=== PATIENT | male | born 1965 | race Caucasian/White ===

== ENCOUNTER 2020-08-03 07:59 | Outpatient (REF) | payer MEDICARE, MEDICAID, SELFPAY ==
[2020-08-03 11:56] LABS: Alanine Aminotransferase 20 U/L (0-40); Albumin Level 4.1 g/dL (3.5-5.0); Alkaline Phosphatase 71 U/L (39-117); Anion Gap 17 (12-20); Aspartate Amino Transferase 18 U/L (5-37); Bilirubin Total 0.5 mg/dL (0.0-1.0); Blood Urea Nitrogen 14 mg/dL (9-16); Calcium 9.4 mg/dL (8.4-10.2); Carbon Dioxide 29 mmol/L (22-29); Chloride 99 mmol/L (96-108); Cholesterol 181 mg/dL; Estimated Glomerular Filt Rate > 60; Glucose Fasting 157 mg/dL (60-99); HDL Cholesterol 47 mg/dL; LDL Cholesterol Calculated 116 mg/dl; Potassium 4.9 mmol/l (3.3-5.1); Sodium 140 mmol/L (135-145); Total Protein 7.4 g/dL (6.5-8.0); Triglycerides 92 mg/dL
[2020-08-03 12:18] LABS: TSH reflex Free T4 1.08 mIU/mL (0.32-4.0)
== END 2020-08-03 08:00 | disposition home or self-care (01) ==
LOC: HO.WFDLDS 07:59
PROVIDERS: Visit Provider Family Medicine
DX: Z00.00 Encounter for general adult medical examination without abnormal findings (principal); E11.9 Type 2 diabetes mellitus without complications; Z79.4 Long term (current) use of insulin
CPT/HCPCS: 80053; 80061; 84443

== ENCOUNTER → 2020-08-10 12:47 | Outpatient (BNVA) | payer MEDICARE, MEDICAID, SELFPAY | PROVIDERS: PCP Family Medicine; Visit Provider Internal Medicine Pulmonary Disease | DX: J44.9 Chronic obstructive pulmonary disease, unspecified (principal); G47.33 Obstructive sleep apnea (adult) (pediatric) | CPT/HCPCS: 99202 ==

== ENCOUNTER → 2020-08-15 08:06 | Outpatient (BNVA) | payer MEDICARE, MEDICAID, SELFPAY | PROVIDERS: PCP Family Medicine; Visit Provider Nurse Practitioner Gerontology | DX: E11.65 Type 2 diabetes mellitus with hyperglycemia (principal); Z79.4 Long term (current) use of insulin; E78.5 Hyperlipidemia, unspecified; I10 Essential (primary) hypertension; E66.09 Other obesity due to excess calories; R00.0 Tachycardia, unspecified | CPT/HCPCS: 82947; 99212 ==

== ENCOUNTER 2020-08-23 08:57 | Outpatient (REF) | payer MEDICARE, MEDICAID, SELFPAY ==
[2020-08-23 11:39] LABS: Microalbum/Creatinine Ratio Ur 6.4 ug/mg cr; Prostate Specific Antigen Scr 0.59 ng/mL (<0.05-4.0)
== END 2020-08-23 08:58 | disposition home or self-care (01) ==
LOC: HO.WFDLDS 08:57
PROVIDERS: Nurse Practitioner Gerontology; Visit Provider Family Medicine
DX: E78.5 Hyperlipidemia, unspecified (principal); I10 Essential (primary) hypertension; E11.65 Type 2 diabetes mellitus with hyperglycemia; Z79.4 Long term (current) use of insulin; Z12.5 Encounter for screening for malignant neoplasm of prostate
CPT/HCPCS: 82043; 84153

== ENCOUNTER 2020-11-14 11:01 | Outpatient (REF) | payer MEDICARE, MEDICAID, SELFPAY ==
--- NOTE | 2020-11-14 16:24 | PFT_ITS ---
Forced vital capacity, FEV1, IDL81-74 and MVV are all markedly reduced. Post bronchodilator therapy, there is only slight improvement in RHR46-23. Total lung capacity is moderately reduced. Residual volume slightly reduced. Diffusion capacity moderately reduced. CONCLUSION: 1. Moderately severe restrictive pulmonary disorder. 2. Moderate degree of obstructive airway disorder. 3. No significant improvement to bronchodilator therapy. Ayse Ann MD MSB/MODL / [id number]
== END 2020-11-14 11:02 | disposition home or self-care (01) ==
LOC: HO.RESP 11:01
PROVIDERS: PCP Family Medicine; Visit Provider Internal Medicine Pulmonary Disease
DX: J44.9 Chronic obstructive pulmonary disease, unspecified (principal)
CPT/HCPCS: 94060; 94727; 94729

== ENCOUNTER → 2020-11-15 09:59 | Outpatient (REF) | payer MEDICARE, MEDICAID, SELFPAY | LOC: HO.SL 09:59 | PROVIDERS: PCP Family Medicine; Visit Provider Internal Medicine Pulmonary Disease | DX: G47.33 Obstructive sleep apnea (adult) (pediatric) (principal) | CPT/HCPCS: 95806 ==

== ENCOUNTER → 2020-12-08 10:45 | Outpatient (BNVA) | payer OTHER, SELFPAY | PROVIDERS: PCP Family Medicine; Visit Provider Internal Medicine Pulmonary Disease | DX: J44.9 Chronic obstructive pulmonary disease, unspecified (principal); G47.33 Obstructive sleep apnea (adult) (pediatric); J98.4 Other disorders of lung; E66.9 Obesity, unspecified; M54.9 Dorsalgia, unspecified | CPT/HCPCS: 99212 ==

== ENCOUNTER → 2021-01-20 09:07 | Outpatient (BNVA) | payer OTHER, SELFPAY | PROVIDERS: PCP Family Medicine; Visit Provider Internal Medicine | DX: M54.9 Dorsalgia, unspecified (principal); E66.01 Morbid (severe) obesity due to excess calories; R06.4 Hyperventilation | CPT/HCPCS: 99202 ==

== ENCOUNTER 2021-01-23 10:25 | Outpatient (REF) | payer OTHER, SELFPAY ==
--- NOTE | ~2021-01-23 | XR_ITS ---
EXAMINATION: XR BILATERAL HIPS WITH AP PELVIS CLINICAL INFORMATION: Bilateral posttraumatic osteoarthritis of hip COMPARISON: None TECHNIQUE: AP view of the pelvis and single views of each hip were obtained. FINDINGS: There is severe loss of left hip joint with subarticular sclerosis and deformity of femoral head suggestive of severe arthritic changes. There is mild foreshortening of the femoral neck as well likely from old traumatic injury. There is minimal loss of right hip joint space but no acute fracture or dislocation seen. The SI joints are symmetric and normal. There is mild deformity of left hemipelvis from old fracture. The right posterior hemipelvis appears unremarkable. XR/XR hip BI w PEL1V IMPRESSION: Severe degenerative arthritic changes left hip joint. There is old traumatic changes left hemipelvis and left hip. Mild degenerative changes right hip joint. The right hemipelvis is unremarkable.
== END 2021-01-23 10:26 | disposition home or self-care (01) ==
LOC: HO.XRAY 10:25
PROVIDERS: PCP Family Medicine; Visit Provider Internal Medicine
DX: M16.4 Bilateral post-traumatic osteoarthritis of hip (principal)
CPT/HCPCS: 73521

== ENCOUNTER → 2021-02-07 10:21 | Outpatient (BNVA) | payer OTHER, SELFPAY | PROVIDERS: PCP Family Medicine; Visit Provider Internal Medicine Pulmonary Disease | DX: G47.33 Obstructive sleep apnea (adult) (pediatric) (principal); J44.9 Chronic obstructive pulmonary disease, unspecified; J30.9 Allergic rhinitis, unspecified | CPT/HCPCS: 99212 ==

== ENCOUNTER → 2021-02-17 08:56 | Outpatient (BNVA) | payer OTHER, SELFPAY | PROVIDERS: PCP Family Medicine; Visit Provider Internal Medicine | DX: M16.4 Bilateral post-traumatic osteoarthritis of hip (principal) | CPT/HCPCS: 99212 ==

== ENCOUNTER → 2021-03-29 11:48 | Outpatient (BNVA) | payer OTHER, SELFPAY | PROVIDERS: PCP Family Medicine; Visit Provider Internal Medicine Pulmonary Disease | DX: J44.9 Chronic obstructive pulmonary disease, unspecified (principal); G47.33 Obstructive sleep apnea (adult) (pediatric); R06.00 Dyspnea, unspecified | CPT/HCPCS: 99212 ==

== ENCOUNTER → 2021-05-05 10:20 | Outpatient (BNVA) | payer OTHER, SELFPAY | PROVIDERS: PCP Family Medicine; Visit Provider Internal Medicine Pulmonary Disease | DX: G47.33 Obstructive sleep apnea (adult) (pediatric) (principal); R06.00 Dyspnea, unspecified; J44.9 Chronic obstructive pulmonary disease, unspecified | CPT/HCPCS: 99212 ==

== ENCOUNTER 2021-06-15 10:08 | Outpatient (REF) | payer OTHER, SELFPAY ==
[2021-06-15 11:52] LABS: Estimated Average Glucose 169 mg/dL; Hemoglobin A1c % 7.5 %
[2021-06-15 11:59] LABS: Alanine Aminotransferase 21 U/L (0-40); Alkaline Phosphatase 61 U/L (39-117); Anion Gap 15 (12-20); Aspartate Amino Transferase 18 U/L (5-37); Bilirubin Total 0.5 mg/dL (0.0-1.0); Blood Urea Nitrogen 17 mg/dL (9-16); Calcium 9.9 mg/dL (8.4-10.2); Carbon Dioxide 29 mmol/L (22-29); Chloride 102 mmol/L (96-108); Estimated Glomerular Filt Rate > 60; Glucose Fasting 125 mg/dL (60-99); Sodium 141 mmol/L (135-145); Total Protein 7.1 g/dL (6.5-8.0)
[2021-06-15 14:30] LABS: Microalbum/Creatinine Ratio Ur 10.6 ug/mg cr
== END 2021-06-15 10:09 | disposition home or self-care (01) ==
LOC: HO.WFDLDS 10:08
PROVIDERS: Visit Provider Family Medicine
DX: Z00.00 Encounter for general adult medical examination without abnormal findings (principal); E11.65 Type 2 diabetes mellitus with hyperglycemia; I10 Essential (primary) hypertension; Z79.4 Long term (current) use of insulin
CPT/HCPCS: 36415; 80053; 82043; 83036

== ENCOUNTER → 2021-06-21 11:26 | Outpatient (BNVA) | payer OTHER, SELFPAY | PROVIDERS: PCP Family Medicine; Visit Provider Internal Medicine Pulmonary Disease | DX: J44.9 Chronic obstructive pulmonary disease, unspecified (principal) | CPT/HCPCS: 99212 ==

== ENCOUNTER → 2021-09-13 10:06 | Outpatient (BNVA) | payer OTHER, SELFPAY | PROVIDERS: PCP Family Medicine; Visit Provider Internal Medicine Pulmonary Disease | DX: J44.9 Chronic obstructive pulmonary disease, unspecified (principal); R06.00 Dyspnea, unspecified | CPT/HCPCS: Q3014 ==

== ENCOUNTER → 2022-01-12 11:10 | Outpatient (BNVA) | payer OTHER, SELFPAY | PROVIDERS: PCP Family Medicine; Visit Provider Internal Medicine Pulmonary Disease | DX: G47.33 Obstructive sleep apnea (adult) (pediatric) (principal); J44.9 Chronic obstructive pulmonary disease, unspecified | CPT/HCPCS: 99212 ==

== ENCOUNTER 2022-04-06 08:39 | Outpatient (REF) | payer OTHER, SELFPAY ==
[2022-04-06 11:52] LABS: MANUAL DIFF FLAG NO
[2022-04-06 12:06] LABS: Basophils Absolute Auto 0.1 X10*3/uL (0.0-0.2); Basophils Percent Auto 0.6 % (0-2); Eosinophils Absolute Auto 0.6 X10*3/uL (0.0-0.4); Eosinophils Percent Auto 5.7 % (0-4); Hematocrit 46.1 % (42.0-52.0); Hemoglobin 14.1 g/dl (14.0-18.0); Imm Gran Abs Auto 0.04 X10*3/uL (0.00-0.03); Imm Gran Pct Auto 0.4 % (0.0-0.4); Lymphocytes Absolute Auto 2.6 X10*3/uL (1.2-4.9); Lymphocytes Percent Auto 26.9 % (20-40); Mean Corpuscular HGB Conc 30.6 g/dl (31.0-36.0); Mean Corpuscular Volume 84.9 fL (80.0-98.0); Mean Platelet Volume 11.4 fL (9.4-12.4); Monocytes Absolute Auto 0.6 X10*3/uL (0.1-1.2); Monocytes Percent Auto 6.2 % (2-11); Neutrophils Absolute Auto 5.8 x10*3/uL (2.0-8.3); Neutrophils Percent Auto 60.2 % (45-73); Platelet Count 270 X10*3/uL (160-400); Red Blood Count 5.43 X10*6/uL (4.60-5.80); Red Cell Distribution Width 15.1 % (11.0-16.0); White Blood Count 9.6 X10*3/uL (4.8-10.8)
[2022-04-06 12:16] LABS: Appearance Urine CLEAR; Color Urine YELLOW; Glucose Urine UA NEG (NEG); Leukocyte Esterase Urine NEG (NEG); Nitrite Urine NEG (NEG); PH 5.5 (5.0-8.0); Specific Gravity - Urine 1.025 (1.005-1.025); Urine Blood NEG (NEG); Urine Ketones NEG (NEG); Urine Protein NEG (NEG-TRACE)
[2022-04-06 12:46] LABS: Creatinine Urine 213.82 mg/dL; Microalbum/Creatinine Ratio Ur 7.9 ug/mg cr
[2022-04-06 12:47] LABS: Alanine Aminotransferase 17 U/L (0-40); Albumin Level 4.1 g/dL (3.5-5.0); Alkaline Phosphatase 55 U/L (39-117); Anion Gap 14 (12-20); Aspartate Amino Transferase 17 U/L (5-37); Bilirubin Total 0.5 mg/dL (0.0-1.0); Blood Urea Nitrogen 17 mg/dL (9-16); Calcium 9.2 mg/dL (8.4-10.2); Carbon Dioxide 30 mmol/L (22-29); Chloride 101 mmol/L (96-108); Cholesterol 179 mg/dL; Estimated Glomerular Filt Rate > 60; Glucose Fasting 118 mg/dL (60-99); HDL Cholesterol 49 mg/dL; LDL Cholesterol Calculated 115 mg/dl; Potassium 4.6 mmol/L (3.3-5.1); Sodium 140 mmol/L (135-145); Total Protein 7.2 g/dL (6.5-8.0); Triglycerides 75 mg/dL
[2022-04-06 13:09] LABS: Prostate Specific Antigen Scr 0.42 ng/mL (<0.05-4.0); TSH reflex Free T4 1.62 uIU/mL (0.32-4.0)
== END 2022-04-06 08:40 | disposition home or self-care (01) ==
LOC: HO.WFDLDS 08:39
PROVIDERS: Visit Provider Family Medicine
DX: Z00.00 Encounter for general adult medical examination without abnormal findings (principal); Z12.5 Encounter for screening for malignant neoplasm of prostate; I10 Essential (primary) hypertension
CPT/HCPCS: 36415; 80053; 80061; 81003; 82043; 84153; 84443; 85025

== ENCOUNTER 2022-05-21 16:19 | Outpatient (REF) | payer OTHER, SELFPAY ==
[2022-05-22 12:52] LABS: Influenza A PCR NEGATIVE (Negative); Influenza B PCR NEGATIVE (Negative); Resp Syncy Virus RNA Qual PCR NEGATIVE (Negative); SARS COV2 PCR INHOUSE NEGATIVE (Negative)
== END 2022-05-21 16:20 | disposition home or self-care (01) ==
LOC: HO.LAB 16:19
PROVIDERS: Visit Provider Nurse Practitioner Family
DX: Z20.822 Contact with and (suspected) exposure to COVID-19 (principal); J06.9 Acute upper respiratory infection, unspecified
CPT/HCPCS: 0241U

== ENCOUNTER → 2022-06-28 14:27 | Outpatient (BNVA) | payer OTHER, SELFPAY | PROVIDERS: PCP Family Medicine; Visit Provider Internal Medicine Pulmonary Disease | DX: J44.9 Chronic obstructive pulmonary disease, unspecified (principal); J32.9 Chronic sinusitis, unspecified | CPT/HCPCS: 99212 ==

== ENCOUNTER → 2022-07-11 09:57 | Outpatient (BNVA) | payer OTHER, SELFPAY | PROVIDERS: PCP Family Medicine; Visit Provider Internal Medicine Pulmonary Disease | DX: J44.9 Chronic obstructive pulmonary disease, unspecified (principal); J32.9 Chronic sinusitis, unspecified | CPT/HCPCS: 99212 ==

== ENCOUNTER 2022-09-04 12:45 | Outpatient (REF) | payer OTHER, SELFPAY ==
[2022-09-04 14:02] LABS: Appearance Urine Clear; Color Urine Yellow; Glucose Urine UA Negative (Negative); Leukocyte Esterase Urine Negative (Negative); Nitrite Urine Negative (Negative); Specific Gravity - Urine 1.025 (1.005-1.025); Urine Blood Negative (Negative); Urine Ketones Trace mg/dL (Negative); Urine Protein Negative (Neg-Trace)
[2022-09-04 14:59] LABS: Creatinine Urine 250.72 mg/dL; Microalbum/Creatinine Ratio Ur 10.7 ug/mg cr
[2022-09-04 15:02] LABS: Alanine Aminotransferase 19 U/L (0-40); Albumin Level 4.2 g/dL (3.5-5.0); Alkaline Phosphatase 66 U/L (39-117); Anion Gap 14 (12-20); Aspartate Amino Transferase 23 U/L (5-37); Bilirubin Total 0.3 mg/dL (0.0-1.0); Blood Urea Nitrogen 18 mg/dL (9-16); Calcium 9.8 mg/dL (8.4-10.2); Carbon Dioxide 28 mmol/L (22-29); Chloride 101 mmol/L (96-108); Estimated Glomerular Filt Rate > 60; Glucose Random 98 mg/dL (60-115); Potassium 4.6 mmol/L (3.3-5.1); Sodium 138 mmol/L (135-145); Total Protein 7.4 g/dL (6.5-8.0)
== END 2022-09-04 12:46 | disposition home or self-care (01) ==
LOC: HO.WFDLDS 12:45
PROVIDERS: Visit Provider Family Medicine
DX: Z00.00 Encounter for general adult medical examination without abnormal findings (principal); E11.9 Type 2 diabetes mellitus without complications; I10 Essential (primary) hypertension; Z79.4 Long term (current) use of insulin
CPT/HCPCS: 36415; 80053; 81003; 82043

== ENCOUNTER → 2022-10-17 10:51 | Outpatient (BNVA) | payer OTHER, SELFPAY | PROVIDERS: PCP Family Medicine; Visit Provider Physician Assistant | DX: K59.09 Other constipation (principal); R06.00 Dyspnea, unspecified; E66.01 Morbid (severe) obesity due to excess calories; E11.65 Type 2 diabetes mellitus with hyperglycemia; Z68.43 Body mass index [BMI] 50.0-59.9, adult; Z79.4 Long term (current) use of insulin | CPT/HCPCS: 99202 ==

== ENCOUNTER 2022-10-17 11:00 | Outpatient (REF) | payer OTHER, SELFPAY | END 2022-10-17 11:01 | disposition home or self-care (01) | LOC: HO.WFDLNP 11:00 | PROVIDERS: Visit Provider Family Medicine | DX: R10.9 Unspecified abdominal pain (principal) | CPT/HCPCS: 87070; 87177; 87205; 87209 ==

== ENCOUNTER 2022-10-22 11:58 | Outpatient (REF) | payer OTHER, SELFPAY | END 2022-10-22 11:59 | disposition home or self-care (01) | LOC: HO.LNP 11:58 | PROVIDERS: Visit Provider Family Medicine | DX: Z13.89 Encounter for screening for other disorder (principal) ==

== ENCOUNTER 2022-11-06 11:51 | Outpatient (REF) | payer OTHER, SELFPAY ==
[2022-11-06 14:44] LABS: Leukocytes Stool Qualitative NEGATIVE (NEGATIVE)
[2022-11-07 07:09] LABS: Adenovirus F 40/41 Not Detected (Not Detect.); Astrovirus Not Detected (Not Detect.); Campylobacter Not Detected (Not Detect.); Cryptosporidium Not Detected (Not Detect.); Cyclospora cayetanensis Not Detected (Not Detect.); E. coli EAEC Not Detected (Not Detect.); E. coli EPEC Not Detected (Not Detect.); E. coli ETEC Not Detected (Not Detect.); E. coli STEC Not Detected (Not Detect.); Entamoeba histolytica Not Detected (Not Detect.); Giardia lamblia Not Detected (Not Detect.); Norovirus GI/GII Not Detected (Not Detect.); Plesiomonas shigelloides Not Detected (Not Detect.); Rotavirus A Not Detected (Not Detect.); Salmonella Not Detected (Not Detect.); Sapovirus Not Detected (Not Detect.); Shigella sp./EIEC Not Detected (Not Detect.); Vibrio Not Detected (Not Detect.); Vibrio Cholerae Not Detected (Not Detect.); Yersinia enterocolitica Not Detected (Not Detect.)
== END 2022-11-06 11:52 | disposition home or self-care (01) ==
LOC: HO.WFDLNP 11:51
PROVIDERS: Visit Provider Family Medicine
DX: R10.9 Unspecified abdominal pain (principal)
CPT/HCPCS: 87177; 87209; 87507; 89055

== ENCOUNTER → 2022-11-28 10:55 | Outpatient (BNVA) | payer OTHER, SELFPAY | PROVIDERS: PCP Family Medicine; Visit Provider Physician Assistant | DX: K59.00 Constipation, unspecified (principal) | CPT/HCPCS: 99212 ==

== ENCOUNTER 2022-12-07 10:11 | Outpatient (RCR) | payer OTHER, SELFPAY | END 2022-12-07 16:00 | disposition home or self-care (01) | LOC: HO.WCC 10:11 | PROVIDERS: PCP Family Medicine; Visit Provider Physician Assistant | DX: E11.620 Type 2 diabetes mellitus with diabetic dermatitis (principal); E11.40 Type 2 diabetes mellitus with diabetic neuropathy, unspecified; I10 Essential (primary) hypertension; E66.01 Morbid (severe) obesity due to excess calories; Z79.4 Long term (current) use of insulin; Z79.84 Long term (current) use of oral hypoglycemic drugs; Z87.891 Personal history of nicotine dependence; L40.9 Psoriasis, unspecified | CPT/HCPCS: 99212 ==

== ENCOUNTER → 2023-01-10 10:40 | Outpatient (BNVA) | payer OTHER, SELFPAY | PROVIDERS: PCP Family Medicine; Visit Provider Internal Medicine Pulmonary Disease | DX: J44.9 Chronic obstructive pulmonary disease, unspecified (principal) | CPT/HCPCS: 99212 ==

== ENCOUNTER 2023-03-15 10:30 | Outpatient (AMB) | payer OTHER, SELFPAY ==
[2023-03-15 10:49] VITALS: BP 122/78; PULSE 102; O2SAT 98; BMI 56.3
--- NOTE | 2023-03-15 10:49 | MHC.PC.OV ---
Vital Signs 03/15/23 10:49 Height 5 ft 3 in Weight 318 lb 2 oz BMI 56.3 BP 122/78 Blood Pressure Location Lt brachial Position Sitting Pulse 102 H Pulse Source Pulse Oximeter Pulse Oximetry (%) 98 Oxygen Delivery Method Room Air Intake Visit Reasons: f/u infection of skin Intake Note: Patient is here for follow up on abscess on skin. He is also here to follow up on his diabetes. Allergies Iodinated Contrast Media Allergy (Severe, Verified 03/15/23 10:53) Blister Byvvbun-KGV-MvG Reductase Inhibitor [Yguotaj-Sxv-Tpz Reductase Inhibitor] Allergy (Verified 03/15/23 10:53) Swollen sulfamethoxazole [From Bactrim] Allergy (Verified 03/15/23 10:53) Swollen trimethoprim [From Bactrim] Allergy (Verified 03/15/23 10:53) Swollen oxycodone Adverse Reaction (Verified 03/15/23 10:53) does not tolerate Tobacco use date assessed: 03/15/23 Dental Screening Dental Screen Date: 03/15/23 HPI f/u infection of skin HPI Details 57 y/o male presents to f/u infection of skin. Had extended his antibiotics. He reports infection has healed. A1c today 03/15/23 is 6.3%. Pt has sleep apnea and he states he has been sleeping better. [facility] Medical History Chronic pain COPD (chronic obstructive pulmonary disease) Essential hypertension Hyperlipidemia Obesity due to excess calories GEORGE (obstructive sleep apnea) Psoriasis Type 2 diabetes mellitus with hyperglycemia, with long-term current use of insulin Surgical History History of repair of hiatal hernia Family History Father Diabetes Social History Household Members: Spouse Housing: Apartment Alcohol intake: never Patient Tobacco Use Status: Former Tobacco user e-Cigarette/Vaping Use: Never Used Second Hand Smoke Exposure: No service: No Current occupational status: disabled Current occupational exposures/hazards: No Cognitive needs: No Hearing needs: No Vision needs: No Questionnaire Thrive Questionnaire Date Thrive assessed: 08/21/22 INES-7 AMB Questionnaire INES-7 Date INES - 7 assessed: 08/21/22 Source: Developed by Drs. Sharan Restrepo, Yasmine Pineda, Romero Stark and colleagues, with an educational jeannette from [employer]. Review of Systems Const Denies chills, Denies fatigue, Denies fever(s), Denies headache(s) and Denies weakness ENT Denies dizziness and Denies headache(s) Card Denies chest pain, Denies lightheadedness, Denies dyspnea and Denies other (Palpitations) Resp Denies cough, Denies dyspnea, Denies wheezing and Denies other ( shortness of breath) Musc Denies numbness and Denies tingling Neuro Denies dizziness, Denies headache(s), Denies numbness, Denies tingling, Denies paresthesias and Denies weakness Psych Denies anxiety and Denies depression Endo Denies fatigue Aller/Immun Denies wheezing Physical exam (Primary Care) Vital Signs: Last Vital Signs Pulse 102 H 03/15/23 10:49 BP 122/78 03/15/23 10:49 Pulse Ox 98 03/15/23 10:49 Oxygen Delivery Method Room Air 03/15/23 10:49 BMI result Body Mass Index 56.3 Tobacco/Smoking Status: Tobacco use Status Tobacco use date assessed 03/15/23 03/15/23 10:54 Patient Tobacco Use Status Former Tobacco user 03/15/23 10:51 e-Cigarette/Vaping Use Never Used 03/15/23 10:51 Thrive Assessment: Date of Thrive Assessment Date Thrive assessed 08/21/22 03/15/23 10:51 Const General: no acute distress and well developed Nutritional Appearance: well nourished Orientation/consciousness: patient oriented x3 [facility] Head: Yes normocephalic and Yes atraumatic Eyes General: appearance normal, both eyes and all related structures Pupils: Equal, round and reactive pupils present EOM: EOMs intact bilaterally Resp Effort & Inspection: normal respiratory effort Auscultation: clear to auscultation bilaterally Cardio Rate: regular rate Rhythm: regular rhythm Heart sounds: S1 normal heart sound present, S2 normal heart sound present, no gallops, no murmurs and no rubs Neuro General: patient oriented x3 and gait normal Cranial nerves: Yes Equal, round and reactive pupils present Psych Affect: normal affect Results AMB Hemoglobin A1c AMB Hemoglobin A1c 6.3 % Last Edit by Sherry Vega CMA on 03/15/23 11:09 Results Reviewed Results Reviewed: Laboratory Last Values Hgb A1c (Clinic) 6.3 % (4.0-6.0) H 03/15/23 11:08 Assessment and Plan Assessment & Plan (1) Infected ulcer of skin: Code(s): L98.499 - Non-pressure chronic ulcer of skin of other sites with unspecified severity; L08.9 - Local infection of the skin and subcutaneous tissue, unspecified Plan: Resolved Continue offloading with a donut cushion. Continue weight loss He still gets some folliculitis in that region so advised he use some Hibiclens about 3 times a week (2) Diabetes mellitus type 2, insulin dependent: Code(s): E11.9 - Type 2 diabetes mellitus without complications; Z79.4 - [facility] (current) use of insulin Plan: A1c shows good control at 6.3%. Goal is less than 7.0% Continue current medication regimen and follow-up with endocrine as recommended (3) GEORGE (obstructive sleep apnea): Code(s): G47.33 - Obstructive sleep apnea (adult) (pediatric) Plan: Using CPAP and feeling much better Continue CPAP Follow-up with Pulmonary Medicine as recommended (4) Erectile dysfunction: Code(s): N52.9 - Male erectile dysfunction, unspecified Plan: Trial sildenafil (5) Morbid obesity: Code(s): E66.01 - Morbid (severe) obesity due to excess calories Plan: Patient continues to lose weight and I encouraged this. He has severe knee pain and difficulty walking due to his weight. I wrote him a letter today for a 1st floor apartment without any stairs and parking space as close as possible to his living space. Orders: Orders AMB Hemoglobin A1c Today Z13.9 - Encounter for screening, unspecified Medications: New sildenafil administer 30 minutes to 4 hours before activity 100 mg PO DAILY PRN 4 tabs 2RF sexual activity 30 days Coding Level of Care Code Est Pt Level 4 (60571) Diagnoses Infected ulcer of skin L98.499; L08.9 Diabetes mellitus type 2, insulin dependent E11.9; Z79.4 GEORGE (obstructive sleep apnea) G47.33 Erectile dysfunction N52.9 Morbid obesity E66.01
== END 2023-03-15 12:27 | disposition home or self-care (01) ==
PROVIDERS: Visit Provider Family Medicine
DX: L98.499 Non-pressure chronic ulcer of skin of other sites with unspecified severity (principal); L08.9 Local infection of the skin and subcutaneous tissue, unspecified; E11.9 Type 2 diabetes mellitus without complications; Z79.4 Long term (current) use of insulin; G47.33 Obstructive sleep apnea (adult) (pediatric); N52.9 Male erectile dysfunction, unspecified; E66.01 Morbid (severe) obesity due to excess calories; Z68.43 Body mass index [BMI] 50.0-59.9, adult; Z13.9 Encounter for screening, unspecified
CPT/HCPCS: 83036; 99214

== ENCOUNTER 2023-05-08 11:04 | Outpatient (AMB) | payer OTHER, SELFPAY ==
[2023-05-08 11:29] VITALS: BP 110/60; PULSE 103; O2SAT 96; BMI 56.0
--- NOTE | 2023-05-08 11:29 | A.OFFVIS_ITS ---
Intake Vital Signs 05/08/23 11:29 Height 5 ft 3 in Weight 316 lb 5.813 oz BMI 56.0 BP 110/60 Blood Pressure Location Rt brachial Position Sitting Pulse 103 H Pulse Source Doppler Pulse Oximetry (%) 96 Oxygen Delivery Method Room Air Intake Visit Reasons: dysnea Allergies Iodinated Contrast Media Allergy (Severe, Verified 05/08/23 11:32) Blister Cxvzbax-TBY-QeE Reductase Inhibitor [Oyudjoj-Bnc-Eak Reductase Inhibitor] Allergy (Verified 05/08/23 11:32) Swollen sulfamethoxazole [From Bactrim] Allergy (Verified 05/08/23 11:32) Swollen trimethoprim [From Bactrim] Allergy (Verified 05/08/23 11:32) Swollen oxycodone Adverse Reaction (Verified 05/08/23 11:32) does not tolerate HPI dysnea 2 HPI Details 57-year-old gentleman former 30+ pack-year smoker, quit 2004 prior with underlying history of morbid obesity, GEORGE, and COPD.? He uses brand Advair 500 and Spiriva Respimat with good control of his symptoms.? He denies any recent exacerbations.? PFSH Medical History Chronic pain COPD (chronic obstructive pulmonary disease) Essential hypertension Hyperlipidemia Obesity due to excess calories GEORGE (obstructive sleep apnea) Psoriasis Type 2 diabetes mellitus with hyperglycemia, with long-term current use of insulin Surgical History History of repair of hiatal hernia Family History Father Diabetes Social History Household Members: Spouse Housing: Apartment Alcohol intake: never Patient Tobacco Use Status: Former Tobacco user e-Cigarette/Vaping Use: Never Used Second Hand Smoke Exposure: No service: No Current occupational status: disabled Current occupational exposures/hazards: No Cognitive needs: No Hearing needs: No Vision needs: No Review of Systems Const Denies daytime sleepiness, Denies excessive sweating, Denies fatigue, Denies fever(s), Denies lethargy, Denies malaise, Denies night sweats, Denies snoring and Denies weight loss Eyes Denies blurry vision and Denies itchy eyes ENT Denies nasal congestion, Denies post nasal drip, Denies sinus pain, Denies sinus pressure and Denies other ( Thrush) Card Denies chest pain, Denies pedal edema, Denies dyspnea, Denies orthopnea and Denies paroxysmal nocturnal dyspnea Resp Denies cough, Denies hemoptysis, Denies excessive phlegm production, Denies dyspnea, Denies snoring and Denies wheezing GI Denies abdominal pain and Denies heartburn Musc Denies myalgias, Denies arthralgias and Denies joint swelling Skin/Breast Denies rash Neuro Denies memory loss and Denies seizure-like activity Psych Denies abnormal sleep pattern, Denies anxiety and Denies memory loss Endo Denies excessive sweating, Denies fatigue and Denies heat intolerance Varun/Lymph Denies easy bruising Aller/Immun Denies itchy eyes, Denies seasonal rhinorrhea and Denies wheezing Physical Exam Vital Signs: Last Vital Signs Pulse 103 H 05/08/23 11:29 BP 110/60 05/08/23 11:29 Pulse Ox 96 05/08/23 11:29 Oxygen Delivery Method Room Air 05/08/23 11:29 BMI result Body Mass Index 56.0 Const General: no acute distress and alert Nutritional Appearance: obese Orientation/consciousness: Other orientation findings ( oriented) HEENT Head: Yes atraumatic Eyes General: appearance normal, both eyes and all related structures Sclerae: sclerae normal EOM: EOMs intact bilaterally Neck Neck: Yes supple Lymphatic: no lymphadenopathy noted Resp Effort & Inspection: normal respiratory effort and no use of accessory muscles Auscultation: clear to auscultation bilaterally Cardio Rate: regular rate Rhythm: regular rhythm Heart sounds: no gallops, no murmurs and no rubs Skin General skin exam: other ( warm) Extrem General: No clubbing, No cyanosis and No edema Assessment & Plan Assessment & Plan (1) Asthma-COPD overlap syndrome: Code(s): J44.9 - Chronic obstructive pulmonary disease, unspecified Plan: Well controlled on current regimen of brand Advair and Spiriva, also albuterol MDI/nebs. Continue current regimen. Coding Level of Care Code Est Pt Level 3 (26784) Diagnoses Asthma-COPD overlap syndrome J44.9
== END 2023-05-08 11:47 | disposition home or self-care (01) ==
PROVIDERS: PCP Family Medicine; Visit Provider Internal Medicine Pulmonary Disease
DX: J44.9 Chronic obstructive pulmonary disease, unspecified (principal)
CPT/HCPCS: 99213

== ENCOUNTER → 2023-05-08 11:04 | Outpatient (BNVA) | payer OTHER, SELFPAY | PROVIDERS: PCP Family Medicine; Visit Provider Internal Medicine Pulmonary Disease | DX: J44.9 Chronic obstructive pulmonary disease, unspecified (principal) | CPT/HCPCS: 99212 ==

== ENCOUNTER 2023-05-28 09:51 | Outpatient (AMB) | payer OTHER, SELFPAY ==
--- NOTE | 2023-05-28 09:56 | A.OFFVIS_ITS ---
Intake Vital Signs 05/28/23 10:00 Height 5 ft 3 in Weight 317 lb BMI 56.1 BP 107/63 Blood Pressure Location Lt brachial Position Sitting Pulse 99 Intake Visit Reasons: 6 month fu Intake Note: Patient follow up for Constipation. Patient denies any GI issues or concern for today. [employer] Operator Required: No Accompanied by: Self / Same As Patient Allergies Iodinated Contrast Media Allergy (Severe, Verified 05/28/23 09:53) Blister Nlsmjfc-OIE-IhX Reductase Inhibitor [Kotcylq-Gyf-Ytx Reductase Inhibitor] Allergy (Verified 05/28/23 09:53) Swollen sulfamethoxazole [From Bactrim] Allergy (Verified 05/28/23 09:53) Swollen trimethoprim [From Bactrim] Allergy (Verified 05/28/23 09:53) Swollen oxycodone Adverse Reaction (Verified 05/28/23 09:53) does not tolerate Medication List - Last Reconciled 05/28/23 by Casandra Arellano PA-C Advair Diskus 500-50 mcg/dose (fluticasone propion-salmeterol) 1 ea PO BID 30 days NS albuterol sulfate 90 mcg/actuation 2 puffs inhalation Q4-6H PRN 30 days albuterol sulfate 2.5 mg (3 mL) inhalation Q4H PRN benzonatate 200 mg PO BID PRN betamethasone dipropionate 0.05% appl topical blood sugar diagnostic (FreeStyle Lite Strips) As directed four times a day docusate sodium 200 mg (2 x 100 mg) PO BEDTIME ezetimibe 10 mg PO DAILY fluticasone propionate 50 mcg/actuation 1 spray intranasal BID 30 days insulin glargine (Lantus Solostar U-100 Insulin) 25 units subcut QAM insulin NPH and regular human 100 unit/mL (70-30) (Novolin 70-30 FlexPen U-100 Insulin) 20 units before breakfast and 20 units before dinner. subcutaneously 2 times a day; 30 days insulin syringe-needle U-100 As directed lactulose 20 grams (30 mL) PO BID PRN 2 days lancets (FreeStyle Lancets) As directed four time a day lisinopril 10 mg PO DAILY 90 days metformin 1,000 mg PO BID methylcellulose (laxative) (Fiber Therapy (methylcellulose)) 500 mg PO TID miscellaneous medical supply Motorized Electric Scooter. Daily As directed, 999 days. miscellaneous medical supply diabetic shoes naproxen sodium (Aleve) 220 mg PO BID PRN pen needle, diabetic (BD Mirta 2nd Gen Pen Needle) As directed twice a day polyethylene glycol 3350 (Purelax) 17 grams PO DAILY sildenafil 100 mg PO DAILY PRN 30 days tiotropium bromide 2.5 mcg/actuation (Spiriva Respimat) 2 puffs PO DAILY ustekinumab (Stelara) 90 mg subcut Q12W HPI HPI Comments History of Present Illness Details A 57 y/o male with chronic constipation-follows up. He says that he has been very happy with the results he is getting from being consistent with bowel regimen He also modified diet- eating more veggies- trying to lose weight. He is very satisfied- with his progress. He walks with 2 canes he needs a hip replacement in is trying to get in better shape No GI or general complaints [facility] Medical History Obesity due to excess calories Type 2 diabetes mellitus with hyperglycemia, with long-term current use of insulin Chronic pain GEORGE (obstructive sleep apnea) COPD (chronic obstructive pulmonary disease) Psoriasis Hyperlipidemia Essential hypertension Surgical History History of repair of hiatal hernia Family History Father Diabetes Social History Household Members: Spouse Housing: Apartment Alcohol intake: never Patient Tobacco Use Status: Former Tobacco user e-Cigarette/Vaping Use: Never Used Second Hand Smoke Exposure: No service: No Current occupational status: disabled Current occupational exposures/hazards: No Cognitive needs: No Hearing needs: No Vision needs: No Review of Systems Const All systems reviewed & are unremarkable except as noted in HPI and below Card Denies chest pain and Denies dyspnea Resp Denies dyspnea GI Denies abdominal pain, Reports constipation, Denies heartburn and Denies nausea Musc Reports abnormal gait, Reports back pain, Reports deformity, Reports arthralgias and Reports stiffness Neuro Reports abnormal gait Physical Exam Vital Signs: Last Vital Signs Pulse 99 05/28/23 10:00 BP 107/63 05/28/23 10:00 BMI result Body Mass Index 56.1 Const General: cooperative Nutritional Appearance: obese Orientation/consciousness: patient oriented x3 Limitations: ambulation with cane Eyes Sclerae: sclerae normal Resp Effort & Inspection: normal respiratory effort and able to speak in complete sentences Neuro General: patient oriented x3 Psych Mental Status: mental status grossly normal Speech and movement: Clear speech present Affect: normal affect Attitude: cooperative Thought process: Normal thought process present Insight: Good insight present (Psych) Judgement: Good judgement present (Psych) Assessment & Plan Assessment & Plan (1) Constipation: Comment: Multiple comorbidities, COPD, GEORGE, hypertension, diabetes, obesity, Code(s): K59.00 - Constipation, unspecified Medications: New hydrocortisone 2.5% (Proctosol HC) 1 appl [place] BEDTIME PRN 30 grams 3RF hemorrhoids Refilled docusate sodium 200 mg (2 x 100 mg) PO BEDTIME 60 caps 5RF methylcellulose (laxative) (Fiber Therapy (methylcellulose)) 500 mg PO TID 90 tabs 5RF polyethylene glycol 3350 (Purelax) 17 grams PO DAILY 510 grams 6RF Patient Instructions: 57-year-old male chronic constipation-in following regimen with excellent response He is awaiting hip surgery however has to lose more weight He will continue regimen we will follow back with progress per his request Encourage to call questions or concerns Appreciate the opportunity assist in the care the patient Coding Level of Care Code Est Pt Level 3 (81255) Diagnoses Constipation K59.00 Time Spent (min) 30
[2023-05-28 10:00] VITALS: BP 107/63; PULSE 99; BMI 56.1
== END 2023-05-28 12:13 | disposition home or self-care (01) ==
LOC: HO.HGIW 09:51
PROVIDERS: PCP Family Medicine; Visit Provider Physician Assistant
DX: K59.00 Constipation, unspecified (principal)
CPT/HCPCS: 99213

== ENCOUNTER → 2023-05-28 09:51 | Outpatient (BNVA) | payer OTHER, SELFPAY | PROVIDERS: PCP Family Medicine; Visit Provider Physician Assistant | DX: K59.00 Constipation, unspecified (principal) | CPT/HCPCS: 99212 ==

== ENCOUNTER 2023-06-14 09:33 | Outpatient (AMB) | payer OTHER, SELFPAY ==
--- NOTE | 2023-06-14 09:35 | A.OFFPC_ITS ---
Vital Signs 06/14/23 09:38 Height 5 ft 3 in Weight 316 lb BMI 56.0 BP 118/74 Blood Pressure Location Lt brachial Position Sitting Pulse 91 Pulse Source Pulse Oximeter Pulse Oximetry (%) 99 Oxygen Delivery Method Room Air Intake Visit Reasons: f/u diabetes and chronic conditions Intake Note: Patient is here for follow up on diabetes and other chronic conditions. Allergies Iodinated Contrast Media Allergy (Severe, Verified 06/14/23 09:39) Blister Hthfoin-TDV-NyW Reductase Inhibitor [Wmjayws-Sqt-Xrw Reductase Inhibitor] Allergy (Verified 06/14/23 09:39) Swollen sulfamethoxazole [From Bactrim] Allergy (Verified 06/14/23 09:39) Swollen trimethoprim [From Bactrim] Allergy (Verified 06/14/23 09:39) Swollen oxycodone Adverse Reaction (Verified 06/14/23 09:39) does not tolerate Tobacco use date assessed: 06/14/23 HPI f/u diabetes and chronic conditions HPI Details 57 y/o male presents to f/u diabetes and chronic conditions. Last A1c 03/15/23 6.3%. A1c today 06/14/23 is 6.9%. Blood pressure today 118/74. [facility] Medical History Obesity due to excess calories Type 2 diabetes mellitus with hyperglycemia, with long-term current use of insulin Chronic pain GEORGE (obstructive sleep apnea) COPD (chronic obstructive pulmonary disease) Psoriasis Hyperlipidemia Essential hypertension Surgical History History of repair of hiatal hernia Family History Father Diabetes Social History Household Members: Spouse Housing: Apartment Alcohol intake: never Patient Tobacco Use Status: Former Tobacco user e-Cigarette/Vaping Use: Never Used Second Hand Smoke Exposure: No service: No Current occupational status: disabled Current occupational exposures/hazards: No Cognitive needs: No Hearing needs: No Vision needs: No Questionnaire Thrive Questionnaire Date Thrive assessed: 08/21/22 INES-7 AMB Questionnaire INES-7 Date INES - 7 assessed: 08/21/22 Source: Developed by Drs. Sharan Restrepo, Yasmine Pineda, Romero Stark and colleagues, with an educational jeannette from [employer]. Review of Systems Const Denies chills, Denies fatigue, Denies fever(s), Denies headache(s) and Denies weakness ENT Denies dizziness and Denies headache(s) Card Denies dyspnea Resp Denies cough, Denies dyspnea, Denies wheezing and Denies other (shortness of breath) Musc Denies numbness and Denies tingling Neuro Denies dizziness, Denies headache(s), Denies numbness, Denies tingling and Denies weakness Psych Denies anxiety and Denies depression Endo Denies fatigue Aller/Immun Denies wheezing Physical exam (Primary Care) Vital Signs: Last Vital Signs Pulse 91 06/14/23 09:38 BP 118/74 06/14/23 09:38 Pulse Ox 99 06/14/23 09:38 Oxygen Delivery Method Room Air 06/14/23 09:38 BMI result Body Mass Index 56.0 Tobacco/Smoking Status: Tobacco use Status Tobacco use date assessed 06/14/23 06/14/23 09:40 Patient Tobacco Use Status Former Tobacco user 06/14/23 09:36 e-Cigarette/Vaping Use Never Used 06/14/23 09:36 Thrive Assessment: Date of Thrive Assessment Date Thrive assessed 08/21/22 06/14/23 09:36 Const General: well developed; No acute distress Nutritional Appearance: obese morbidly obese Orientation/consciousness: patient oriented x3 HENMT Head: Yes normocephalic and Yes atraumatic Eyes General: appearance normal, both eyes and all related structures Pupils: Equal, round and reactive pupils present EOM: EOMs intact bilaterally Resp Effort & Inspection: normal respiratory effort Auscultation: clear to auscultation bilaterally Cardio Rate: regular rate Rhythm: regular rhythm Heart sounds: S1 normal heart sound present, S2 normal heart sound present, no gallops, no murmurs and no rubs Neuro General: patient oriented x3 and gait normal Cranial nerves: Yes Equal, round and reactive pupils present Psych Affect: normal affect Results AMB Hemoglobin A1c AMB Hemoglobin A1c 6.9 % Last Edit by Sherry Vega CMA on 06/14/23 10:13 Assessment and Plan Assessment & Plan (1) Type 2 diabetes mellitus with hyperglycemia, with long-term current use of insulin: Code(s): E11.65 - Type 2 diabetes mellitus with hyperglycemia; Z79.4 - intermediate card tender (current) use of insulin Plan: A1c?increased?from?6.3%?to?6.9%.??Still?at?goal?of?less?than?7.0%. No?changes?to?his?medication?regimen?but?encouraged?him?to?work? at?a?diet?lower?in?sugars?and?starches. Exercise?as?tolerated (2) Immunization counseling: Code(s): Z71.85 - Encounter for immunization safety counseling Plan: Encouraged?COVID?shot Orders: Orders AMB Hemoglobin A1c Today Z13.9 - Encounter for screening, unspecified Medications: Refilled miscellaneous medical supply diabetic shoes 1 ea 0RF E11.9 - Type 2 diabetes mellitus without complications, Z79.4 - intermediate card tender (current) use of insulin Coding Level of Care Code Est Pt Level 3 (45434) Diagnoses Type 2 diabetes mellitus with hyperglycemia, with long-term current use of insulin E11.65; Z79.4 Immunization counseling Z71.85
[2023-06-14 09:38] VITALS: BP 118/74; PULSE 91; O2SAT 99; BMI 56.0
== END 2023-06-14 10:32 | disposition home or self-care (01) ==
PROVIDERS: PCP Family Medicine; Visit Provider Family Medicine
DX: E11.65 Type 2 diabetes mellitus with hyperglycemia (principal); Z79.4 Long term (current) use of insulin; Z71.85 Encounter for immunization safety counseling
CPT/HCPCS: 83036; 99213

== ENCOUNTER 2023-07-10 11:01 | Outpatient (AMB) | payer OTHER, SELFPAY ==
[2023-07-10 11:03] VITALS: BP 102/62; PULSE 101; O2SAT 97; BMI 57.4
--- NOTE | 2023-07-10 11:03 | A.OFFVIS_ITS ---
Intake Vital Signs 07/10/23 11:03 Height 5 ft 3 in Weight 324 lb 1.272 oz BMI 57.4 BP 102/62 Blood Pressure Location Lt brachial Position Sitting Pulse 101 H Pulse Source Doppler Pulse Oximetry (%) 97 Oxygen Delivery Method Room Air Intake Visit Reasons: Dyspnea Allergies Iodinated Contrast Media Allergy (Severe, Verified 07/10/23 11:06) Blister Okxxihu-SNN-StV Reductase Inhibitor [Xawzpqb-Acu-Gsg Reductase Inhibitor] Allergy (Verified 07/10/23 11:06) Swollen sulfamethoxazole [From Bactrim] Allergy (Verified 07/10/23 11:06) Swollen trimethoprim [From Bactrim] Allergy (Verified 07/10/23 11:06) Swollen oxycodone Adverse Reaction (Verified 07/10/23 11:06) does not tolerate HPI Dyspnea HPI Details 58-year-old gentleman former 30+ pack-ye ar smoker, quit 2004 prior with underlying history of morbid obesity, GEORGE, and COPD.? He uses brand Advair 500 and Spiriva Respimat with good control of his symptoms.? He denies any recent exacerbations. No significant change since prior visit. [facility] Medical History Obesity due to excess calories Type 2 diabetes mellitus with hyperglycemia, with long-term current use of insulin Chronic pain GEORGE (obstructive sleep apnea) COPD (chronic obstructive pulmonary disease) Psoriasis Hyperlipidemia Essential hypertension Surgical History History of repair of hiatal hernia Family History Father Diabetes Social History Household Members: Spouse Housing: Apartment Alcohol intake: never Patient Tobacco Use Status: Former Tobacco user e-Cigarette/Vaping Use: Never Used Second Hand Smoke Exposure: No service: No Current occupational status: disabled Current occupational exposures/hazards: No Cognitive needs: No Hearing needs: No Vision needs: No Review of Systems Const Denies daytime sleepiness, Denies excessive sweating, Denies fatigue, Denies fever(s), Denies lethargy, Denies malaise, Denies night sweats, Denies snoring and Denies weight loss Eyes Denies blurry vision and Denies itchy eyes ENT Denies nasal congestion, Denies post nasal drip, Denies sinus pain, Denies sinus pressure and Denies other ( Thrush) Card Denies chest pain, Denies pedal edema, Denies dyspnea, Denies orthopnea and Denies paroxysmal nocturnal dyspnea Resp Denies cough, Denies hemoptysis, Denies excessive phlegm production, Denies dyspnea, Denies snoring and Denies wheezing GI Denies abdominal pain and Denies heartburn Musc Denies myalgias, Denies arthralgias and Denies joint swelling Skin/Breast Denies rash Neuro Denies memory loss and Denies seizure-like activity Psych Denies abnormal sleep pattern, Denies anxiety and Denies memory loss Endo Denies excessive sweating, Denies fatigue and Denies heat intolerance Varun/Lymph Denies easy bruising Aller/Immun Denies itchy eyes, Denies seasonal rhinorrhea and Denies wheezing Physical Exam Vital Signs: Last Vital Signs Pulse 101 H 07/10/23 11:03 BP 102/62 07/10/23 11:03 Pulse Ox 97 07/10/23 11:03 Oxygen Delivery Method Room Air 07/10/23 11:03 BMI result Body Mass Index 57.4 Const General: no acute distress and alert Nutritional Appearance: obese Orientation/consciousness: Other orientation findings ( oriented) HEENT Head: Yes atraumatic Eyes General: appearance normal, both eyes and all related structures Sclerae: sclerae normal EOM: EOMs intact bilaterally Neck Neck: Yes supple Lymphatic: no lymphadenopathy noted Resp Effort & Inspection: normal respiratory effort and no use of accessory muscles Auscultation: clear to auscultation bilaterally Cardio Rate: regular rate Rhythm: regular rhythm Heart sounds: no gallops, no murmurs and no rubs Skin General skin exam: other ( warm) Extrem General: No clubbing, No cyanosis and No edema Assessment & Plan Assessment & Plan (1) COPD (chronic obstructive pulmonary disease): Code(s): J44.9 - Chronic obstructive pulmonary disease, unspecified Plan: Well controlled current regimen of brain and Advair) Spiriva, also albuterol MDI/nebs. Continue current regimen. Orders: Orders XR chest 2V Today J44.9 - Chronic obstructive pulmonary disease, unspecified Coding Level of Care Code Est Pt Level 3 (79523) Diagnoses COPD (chronic obstructive pulmonary disease) J44.9
== END 2023-07-10 11:27 | disposition home or self-care (01) ==
PROVIDERS: PCP Family Medicine; Visit Provider Internal Medicine Pulmonary Disease
DX: J44.9 Chronic obstructive pulmonary disease, unspecified (principal)
CPT/HCPCS: 99213

== ENCOUNTER → 2023-07-10 11:01 | Outpatient (BNVA) | payer OTHER, SELFPAY | PROVIDERS: PCP Family Medicine; Visit Provider Internal Medicine Pulmonary Disease | DX: J44.9 Chronic obstructive pulmonary disease, unspecified (principal) | CPT/HCPCS: 99212 ==

== ENCOUNTER 2023-08-16 08:52 | Outpatient (REF) | payer OTHER, SELFPAY ==
[2023-08-16 11:20] LABS: Appearance Urine Clear; Color Urine Yellow; Glucose Urine UA Negative (Negative); Leukocyte Esterase Urine Negative (Negative); Nitrite Urine Negative (Negative); PH 5.5 (5.0-9.0); Urine Blood Negative (Negative); Urine Ketones Negative (Negative); Urine Protein Negative (Neg-Trace)
[2023-08-16 12:04] LABS: Prostate Specific Antigen Scr 0.52 ng/mL (<0.05-4.0)
[2023-08-16 12:07] LABS: Alanine Aminotransferase 13 U/L (0-40); Albumin Level 4.2 g/dL (3.5-5.0); Alkaline Phosphatase 54 U/L (39-117); Anion Gap 12 (12-20); Aspartate Amino Transferase 15 U/L (5-37); Bilirubin Total 0.4 mg/dL (0.0-1.0); Blood Urea Nitrogen 17 mg/dL (9-16); Calcium 9.9 mg/dL (8.4-10.2); Carbon Dioxide 31 mmol/L (22-29); Chloride 100 mmol/L (96-108); Cholesterol 166 mg/dL (<200); Creatinine Urine 146.33 mg/dL; Estimated Glomerular Filt Rate > 60; Glucose Fasting 130 mg/dL (60-99); HDL Cholesterol 47 mg/dL (>40); LDL Cholesterol Calculated 97 mg/dL (<100); Microalbum/Creatinine Ratio Ur 7.5 ug/mg cr (<30); Potassium 4.3 mmol/L (3.3-5.1); Sodium 139 mmol/L (135-145); Total Protein 7.6 g/dL (6.5-8.0); Triglycerides 113 mg/dL (<150)
[2023-08-16 12:22] LABS: TSH reflex Free T4 1.81 uIU/mL (0.32-4.0)
== END 2023-08-16 08:53 | disposition home or self-care (01) ==
LOC: HO.WFDLDS 08:52
PROVIDERS: Visit Provider Family Medicine
DX: Z00.00 Encounter for general adult medical examination without abnormal findings (principal); I10 Essential (primary) hypertension; Z12.5 Encounter for screening for malignant neoplasm of prostate
CPT/HCPCS: 36415; 80053; 80061; 81003; 82043; 82570; 84153; 84443

== ENCOUNTER 2023-09-27 11:33 | Outpatient (AMB) | payer OTHER, SELFPAY ==
[2023-09-27 11:55] VITALS: BP 120/74; PULSE 78; RESP 12; O2SAT 97; BMI 56.0
--- NOTE | 2023-09-27 11:55 | MHC.PC.OV ---
Vital Signs 09/27/23 11:55 Height 5 ft 3 in Weight 316 lb 2 oz BMI 56.0 BP 120/74 Blood Pressure Location Lt brachial Position Sitting Respiration 12 Pulse 78 Pulse Source Pulse Oximeter Pulse Oximetry (%) 97 Oxygen Delivery Method Room Air Intake Visit Reasons: CPE with f/u labs and health maintenance Intake Note: Patient is here for his physical today. Allergies Iodinated Contrast Media Allergy (Severe, Verified 07/10/23 11:06) Blister Ihtsvaf-JTI-KaP Reductase Inhibitor [Yoixacg-Jqk-Nnf Reductase Inhibitor] Allergy (Verified 07/10/23 11:06) Swollen sulfamethoxazole [From Bactrim] Allergy (Verified 07/10/23 11:06) Swollen trimethoprim [From Bactrim] Allergy (Verified 07/10/23 11:06) Swollen oxycodone Adverse Reaction (Verified 07/10/23 11:06) does not tolerate Tobacco use date assessed: 09/27/23 HPI CPE with f/u labs and health maintenance HPI Details Patient?presents?for?complete?physical?exam Reviewed?labs?with?patient Renal?function?is?okay Cholesterol?levels?are?all?within?recommended?range PSA?is?within?normal?limits His?other?labs?are?okay Recent?COVID?infection.??Feeling?well?now.??Blood?sugars?had?been?high?but?are?back?under?control A1c?today?6.5%. He?has?lost?about?8?lb?since?his?last?visit. [facility] Medical History Obesity due to excess calories Type 2 diabetes mellitus with hyperglycemia, with long-term current use of insulin Chronic pain GEORGE (obstructive sleep apnea) COPD (chronic obstructive pulmonary disease) Psoriasis Hyperlipidemia Essential hypertension Surgical History History of repair of hiatal hernia Family History Father Diabetes Social History Household Members: Spouse Housing: Apartment Alcohol intake: never Patient Tobacco Use Status: Former Tobacco user e-Cigarette/Vaping Use: Never Used Second Hand Smoke Exposure: No service: No Current occupational status: disabled Current occupational exposures/hazards: No Cognitive needs: No Hearing needs: No Vision needs: No Questionnaire PHQ-9 Over the last 2 weeks, how often have you been bothered by any of the following problems? 1. Little interest or pleasure in doing things: not at all 2. Feeling down, depressed, or hopeless: not at all 3. Trouble falling or staying asleep, or sleeping too much: not at all 4. Feeling tired or having little energy: not at all 5. Poor appetite or overeating: not at all 6. Feeling bad about yourself - or that you are a failure or have let yourself or your family down: not at all 7. Trouble concentrating on things, such as reading the newspaper or watching television: not at all 8. Moving or speaking so slowly that other people could have noticed. Or the opposite - being so fidgety or restless that you have been moving around a lot more than usual: not at all 9. Thoughts that you would be better off or of hurting yourself in some way: not at all Total score: 0 Source: Developed by Drs. Sharan Restrepo, Yasmine Pineda, Romero Stark and colleagues, with an educational jeannette from [employer]. Thrive Questionnaire Date Thrive assessed: 09/27/23 I am a: Patient What is your living situation today?: I have a steady place to live Within the past 12 months, did the food you bought not last and you didn't have the money to get more?: Never true Within the past 12 months, did you worry whether your food would run out before you got money to buy more?: Never true Do you have trouble paying for medicines?: No Do you have trouble getting transportation to medical appointments?: No Do you have trouble paying your heating and electricity bill?: No Do you have trouble taking care of your child, family member or friend?: No Do you have trouble with day-to-day activities such as bathing, preparing meals, shopping, managing finances, etc.?: No Are you currently unemployed and looking for a job?: No Are you interested in more education?: No THRIVE Score: 0 AUDIT C Alcohol Use Questionnaire (AUDIT-C) 1. How often do you have a drink containing alcohol?: Never 3. How often do you have six or more drinks on one occasion?: Never Total Score: 0 INES-7 AMB Questionnaire INES-7 Date INES - 7 assessed: 09/27/23 Feeling nervous, anxious, or on edge: 0 = Not at all Not being able to stop or control worryin = Not at all Worrying too much about different things: 0 = Not at all Trouble relaxin = Not at all Being so restless that it is hard to sit still: 0 = Not at all Becoming easily annoyed or irritable: 0 = Not at all Feeling afraid as if something awful might happen: 0 = Not at all Total INES-7 score (0-4 normal; 5-9 mild; 10-14 moderate; 15-21 severe): 0 Source: Developed by Drs. Sharan Restrepo, Yasmine Pineda, Romero Stark and colleagues, with an educational jeannette from [employer]. Review of Systems Const Denies chills, Denies fatigue, Denies fever(s), Denies headache(s) and Denies weakness Eyes Denies change in vision ENT Denies dizziness, Denies headache(s), Denies hearing loss, Denies nasal congestion, Denies sinus pain, Denies sinus pressure and Denies sore throat Card Denies chest pain, Denies lightheadedness, Denies dyspnea and Denies other (palpitations) Resp Denies cough, Denies dyspnea and Denies wheezing GI Denies abdominal pain, Denies melena, Denies hematochezia, Denies change in bowel habits, Denies dyspepsia and Denies nausea Denies hematuria and Denies dysuria Musc Denies abnormal gait, Denies myalgias, Denies arthralgias, Denies numbness and Denies tingling Skin/Breast Denies rash, Denies unusual bruising and Denies wounds Neuro Denies abnormal gait, Denies dizziness, Denies headache(s), Denies memory loss, Denies numbness, Denies Sensory deficit (Neuro), Denies tingling and Denies weakness Psych Denies anxiety, Denies depression and Denies memory loss Endo Denies cold intolerance, Denies fatigue, Denies heat intolerance, Denies polydipsia and Denies polyuria Varun/Lymph Denies easy bleeding and Denies easy bruising Aller/Immun Denies wheezing Physical exam (Primary Care) Vital Signs: Last Vital Signs Pulse 78 09/27/23 11:55 Resp 12 09/27/23 11:55 BP 120/74 09/27/23 11:55 Pulse Ox 97 09/27/23 11:55 Oxygen Delivery Method Room Air 09/27/23 11:55 BMI result Body Mass Index 56.0 Tobacco/Smoking Status: Tobacco use Status Tobacco use date assessed 09/27/23 09/27/23 12:07 Patient Tobacco Use Status Former Tobacco user 09/27/23 11:56 e-Cigarette/Vaping Use Never Used 09/27/23 11:56 PHQ-9: PHQ-9 Score PHQ-9: Total score 0 09/27/23 12:13 Thrive Assessment: Date of Thrive Assessment Date Thrive assessed 09/27/23 09/27/23 12:13 Const General: no acute distress, well developed, alert and awake Nutritional Appearance: well nourished and obese morbidly obese Orientation/consciousness: patient oriented x3 HENMT Head: Yes normocephalic and Yes atraumatic Ears: hearing grossly normal bilaterally and TM's normal bilaterally General nose exam: Normal external nose present and Normal nares present Mouth: Normal oral and palatal mucosa present and moist mucous membranes Teeth and gingiva: dentition normal Throat: Yes posterior oropharynx normal Eyes Pupils: Equal, round and reactive pupils present and Pupil accommodation reflex normal EOM: EOMs intact bilaterally Neck Neck: Yes normal visual inspection, Yes no lymphadenopathy and Yes trachea midline Thyroid: Thyroid normal Carotids: no bruits Lymphatic: no lymphadenopathy noted Chest Chest palpation & inspection: normal inspection of the chest Resp Effort & Inspection: normal respiratory effort Auscultation: clear to auscultation bilaterally Cardio Rate: regular rate Rhythm: regular rhythm Heart sounds: S1 normal heart sound present, S2 normal heart sound present, no gallops, no murmurs and no rubs Bruits: no abdominal aortic bruits and no carotid bruits GI Palpation (GI): No Abdominal aortic bruit present, Soft to palpation, nontender, No hepatosplenomegaly present and No Rebound tenderness present Auscultation: normal bowel sounds General: Yes no CVA tenderness Back/Spine/Pelvis Back: no CVA tenderness Cervical Spine: cervical ROM normal and No Cervical spine tenderness Thoracic/Lumbar Spine: thoraco-lumbar ROM normal, No pain with thoraco-lumbar ROM, No thoracic spinal tenderness and No lumbar spinal tenderness Skin Lesions: no lesions Rashes: no rashes Trauma: no lacerations or abrasions Wounds: no wounds Nails: normal Neuro Other: Walks?with?bilateral?forearm?canes General: patient oriented x3, No gait normal and CN's II-XI intact bilaterally Cranial nerves: Yes Equal, round and reactive pupils present Cognition (Neuro): normal cognition Gait exam (Neuro): Normal gait present Motor exam (neuro): 5/5 motor strength present throughout Sensory Exam: No Sensory deficit (Neuro) Deep tendon reflexes (DTR's): Right patellar reflex intensity grade: 2+ and Left patellar reflex intensity grade: 2+ Extrem General: Yes normal to inspection and No edema Psych Appearance: grossly normal Affect: normal affect Attitude: cooperative Thought process: Normal thought process present Results AMB Hemoglobin A1c AMB Hemoglobin A1c 6.5 % Last Edit by Sherry Vega CMA on 09/27/23 13:02 Results Reviewed Results Reviewed: Laboratory Last Values Hgb A1c (Clinic) 6.5 % (4.0-6.0) H 09/27/23 13:01 Assessment and Plan Assessment & Plan (1) Adult general medical exam: Code(s): Z00.00 - Encounter for general adult medical examination without abnormal findings Plan: 58-year-old?male?presents?for?CPE (2) Morbid obesity: Code(s): E66.01 - Morbid (severe) obesity due to excess calories Plan: Severe?morbid?obesity?he?has?lost?about?8?lb?and?I?encouraged?him?to?keep?working?at?this. 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 Plan: A1c?shows?good?control.??Goal?is?less?than?7.0% Continue?current?medication?regimen (4) Osteoarthritis, hip, bilateral: Comment: Combination of primary and post-traumatic severe hip osteoarthritis, not a surgical candidate due to weight and DM Code(s): M16.0 - Bilateral primary osteoarthritis of hip Qualifiers: Osteoarthritis type: post-traumatic Qualified Code(s): M16.4 - Bilateral post-traumatic osteoarthritis of hip Plan: Continue?bilateral?forearm?canes (5) COPD (chronic obstructive pulmonary disease): Code(s): J44.9 - Chronic obstructive pulmonary disease, unspecified Plan: Lungs?are?clear. Follow-up?with?pulmonology?as?recommend (6) Essential hypertension: Code(s): I10 - Essential (primary) hypertension Plan: Blood?pressure?is?controlled.??Goal?is?less?than?140/90 Continue?current?medication (7) Screening for prostate cancer: Code(s): Z12.5 - Encounter for screening for malignant neoplasm of prostate Plan: PSA?is?within?normal?limit (8) Screening for colon cancer: Code(s): Z12.11 - Encounter for screening for malignant neoplasm of colon Plan: Does?not?tolerate?colonoscopy Cologuard?test?in?2020?was?negative.??He?will?be?due?again?this?May Orders: Orders AMB Hemoglobin A1c Today Z13.9 - Encounter for screening, unspecified Coding Level of Care Code Est Pt Prev Care 40-64y(69002) Diagnoses Adult general medical exam Z00.00 Morbid obesity E66.01 Type 2 diabetes mellitus with hyperglycemia, with long-term current use of insulin E11.65; Z79.4 Post-traumatic osteoarthritis of both hips M16.4 Osteoarthritis type: post-traumatic COPD (chronic obstructive pulmonary disease) J44.9 Essential hypertension I10 Screening for prostate cancer Z12.5 Screening for colon cancer Z12.11
== END 2023-09-27 13:15 | disposition home or self-care (01) ==
PROVIDERS: PCP Family Medicine; Visit Provider Family Medicine
DX: Z00.00 Encounter for general adult medical examination without abnormal findings (principal); E66.01 Morbid (severe) obesity due to excess calories; E11.65 Type 2 diabetes mellitus with hyperglycemia; Z68.44 Body mass index [BMI] 60.0-69.9, adult; Z79.4 Long term (current) use of insulin; J44.9 Chronic obstructive pulmonary disease, unspecified; M16.4 Bilateral post-traumatic osteoarthritis of hip; I10 Essential (primary) hypertension
CPT/HCPCS: 83036; 99396

== ENCOUNTER 2023-10-23 10:42 | Outpatient (REF) | payer OTHER, SELFPAY ==
--- NOTE | ~2023-10-23 | XR_ITS ---
EXAMINATION: XR CHEST CLINICAL INFORMATION: Chronic obstructive pulmonary disease COMPARISON: None available. TECHNIQUE: 2 views of the chest were obtained. FINDINGS: Bilateral low lung volumes. Bibasilar atelectasis. Interstitial prominence. No pneumothorax. Trachea is midline. Cardiac mediastinal silhouette is not enlarged. Aorta demonstrates mild tortuosity. No large pleural effusion. Degenerative changes of the thoracolumbar spine. Soft tissues are unremarkable. XR/XR chest 2V IMPRESSION: 1. Bilateral low lung volumes. 2. Bibasilar atelectasis. 3. Interstitial prominence.
== END 2023-10-23 10:43 | disposition home or self-care (01) ==
LOC: HO.XRAY 10:42
PROVIDERS: Visit Provider Internal Medicine Pulmonary Disease
DX: J44.9 Chronic obstructive pulmonary disease, unspecified (principal)
CPT/HCPCS: 71046

== ENCOUNTER 2023-10-29 13:41 | Outpatient (AMB) | payer OTHER, SELFPAY ==
--- NOTE | 2023-10-29 13:46 | A.OFFVIS_ITS ---
Intake Vital Signs 10/29/23 13:49 Height 5 ft 3 in Weight 317 lb BMI 56.1 BP 104/62 Blood Pressure Location Rt brachial Position Sitting Pulse 104 H Pulse Oximetry (%) 97 Oxygen Delivery Method Room Air Intake Visit Reasons: S/p chest x ray Allergies Iodinated Contrast Media Allergy (Severe, Verified 10/29/23 13:53) Blister Ecesijq-YFN-EpX Reductase Inhibitor [Swqhbhj-Bdi-Yfe Reductase Inhibitor] Allergy (Verified 10/29/23 13:53) Swollen sulfamethoxazole [From Bactrim] Allergy (Verified 10/29/23 13:53) Swollen trimethoprim [From Bactrim] Allergy (Verified 10/29/23 13:53) Swollen oxycodone Adverse Reaction (Verified 10/29/23 13:53) does not tolerate HPI S/p chest x ray HPI Details 58-year-old gentleman former 30+ pack-ye ar smoker, quit 2004 prior with underlying history of morbid obesity, GEORGE, and COPD.? He uses brand Advair 500 and Spiriva Respimat with good control of his symptoms.? He has had recent exacerbation treated with a course of antibiotics and prednisone. Patient is not able to tolerate CPAP. [facility] Medical History Obesity due to excess calories Type 2 diabetes mellitus with hyperglycemia, with long-term current use of insulin Chronic pain GEORGE (obstructive sleep apnea) COPD (chronic obstructive pulmonary disease) Psoriasis Hyperlipidemia Essential hypertension Surgical History History of repair of hiatal hernia Family History Father Diabetes Social History Household Members: Spouse Housing: Apartment Alcohol intake: never Patient Tobacco Use Status: Former Tobacco user e-Cigarette/Vaping Use: Never Used Second Hand Smoke Exposure: No service: No Current occupational status: disabled Current occupational exposures/hazards: No Cognitive needs: No Hearing needs: No Vision needs: No Review of Systems Const Denies daytime sleepiness, Denies excessive sweating, Denies fatigue, Denies fever(s), Denies lethargy, Denies malaise, Denies night sweats, Denies snoring and Denies weight loss Eyes Denies blurry vision and Denies itchy eyes ENT Denies nasal congestion, Denies post nasal drip, Denies sinus pain, Denies sinus pressure and Denies other ( Thrush) Card Denies chest pain, Denies pedal edema, Denies dyspnea, Denies orthopnea and Denies paroxysmal nocturnal dyspnea Resp Denies cough, Denies hemoptysis, Denies excessive phlegm production, Denies dyspnea, Denies snoring and Denies wheezing GI Denies abdominal pain and Denies heartburn Musc Denies myalgias, Denies arthralgias and Denies joint swelling Skin/Breast Denies rash Neuro Denies memory loss and Denies seizure-like activity Psych Denies abnormal sleep pattern, Denies anxiety and Denies memory loss Endo Denies excessive sweating, Denies fatigue and Denies heat intolerance Varun/Lymph Denies easy bruising Aller/Immun Denies itchy eyes, Denies seasonal rhinorrhea and Denies wheezing Physical Exam Vital Signs: Last Vital Signs Pulse 104 H 10/29/23 13:49 BP 104/62 10/29/23 13:49 Pulse Ox 97 10/29/23 13:49 Oxygen Delivery Method Room Air 10/29/23 13:49 BMI result Body Mass Index 56.1 Const General: no acute distress and alert Nutritional Appearance: obese Orientation/consciousness: Other orientation findings ( oriented) HEENT Head: Yes atraumatic Eyes General: appearance normal, both eyes and all related structures Sclerae: sclerae normal EOM: EOMs intact bilaterally Neck Neck: Yes supple Lymphatic: no lymphadenopathy noted Resp Effort & Inspection: normal respiratory effort and no use of accessory muscles Auscultation: clear to auscultation bilaterally Cardio Rate: regular rate Rhythm: regular rhythm Heart sounds: no gallops, no murmurs and no rubs Skin General skin exam: other ( warm) Extrem General: No clubbing, No cyanosis and No edema Assessment & Plan Assessment & Plan (1) GEORGE (obstructive sleep apnea): Code(s): G47.33 - Obstructive sleep apnea (adult) (pediatric) Plan: Underlying severe obstructive sleep apnea with patient not able to tolerate CPAP. Alternative to CPAP including jaw advancement device discussed. Patient states that at this time his sleeping well is not interested in further GEORGE therapy. (2) Asthma-COPD overlap syndrome: Code(s): J44.9 - Chronic obstructive pulmonary disease, unspecified Plan: Controlled on brand Advair, Spiriva, and albuterol MDI/nebs. Continue current regimen. Coding Level of Care Code Est Pt Level 4 (68117) Diagnoses GEORGE (obstructive sleep apnea) G47.33 Asthma-COPD overlap syndrome J44.9
[2023-10-29 13:49] VITALS: BP 104/62; PULSE 104; O2SAT 97; BMI 56.1
== END 2023-10-29 14:05 | disposition home or self-care (01) ==
PROVIDERS: PCP Family Medicine; Visit Provider Internal Medicine Pulmonary Disease
DX: G47.33 Obstructive sleep apnea (adult) (pediatric) (principal); J44.9 Chronic obstructive pulmonary disease, unspecified
CPT/HCPCS: 99214

== ENCOUNTER → 2023-10-29 13:41 | Outpatient (BNVA) | payer OTHER, SELFPAY | PROVIDERS: PCP Family Medicine; Visit Provider Internal Medicine Pulmonary Disease | DX: G47.33 Obstructive sleep apnea (adult) (pediatric) (principal); J44.9 Chronic obstructive pulmonary disease, unspecified | CPT/HCPCS: 99212 ==

== ENCOUNTER 2023-12-18 09:48 | Outpatient (AMB) | payer OTHER, SELFPAY ==
[2023-12-18 10:34] VITALS: BP 118/70; PULSE 98; O2SAT 99; BMI 55.5
--- NOTE | 2023-12-18 10:34 | A.OFFPC_ITS ---
Vital Signs 12/18/23 10:34 Height 5 ft 3 in Weight 313 lb 2 oz BMI 55.5 BP 118/70 Blood Pressure Location Lt brachial Position Sitting Pulse 98 Pulse Source Pulse Oximeter Pulse Oximetry (%) 99 Oxygen Delivery Method Room Air Intake Visit Reasons: pressure sore Intake Note: Patient is here with [id number] sore on right side upper leg/ buttock area. Patient is dressing it TID with Terrasil, and washing with Bactine. Allergies Iodinated Contrast Media Allergy (Severe, Verified 12/18/23 10:36) Blister Mjoismj-YLG-QqI Reductase Inhibitor [Zkwhagy-Hvp-Zpf Reductase Inhibitor] Allergy (Verified 12/18/23 10:36) Swollen sulfamethoxazole [From Bactrim] Allergy (Verified 12/18/23 10:36) Swollen trimethoprim [From Bactrim] Allergy (Verified 12/18/23 10:36) Swollen oxycodone Adverse Reaction (Verified 12/18/23 10:36) does not tolerate Medication List - Last Reconciled 12/18/23 by Paresh Trivedi MD Advair Diskus 500-50 mcg/dose (fluticasone propion-salmeterol) 1 ea PO BID 30 days NS albuterol sulfate 90 mcg/actuation 2 puffs inhalation Q4-6H PRN 30 days albuterol sulfate 2.5 mg (3 mL) inhalation Q4H PRN amoxicillin-pot clavulanate 875-125 mg 1 tab PO Q12H 14 days benzonatate 200 mg PO BID PRN betamethasone dipropionate 0.05% appl topical blood sugar diagnostic (FreeStyle Lite Strips) As directed four times a day docusate sodium 200 mg (2 x 100 mg) PO BEDTIME ezetimibe 10 mg PO DAILY fluticasone propionate 50 mcg/actuation 1 spray intranasal BID 30 days guaifenesin ER 1,200 mg (2 x 600 mg) PO BID 10 days hydrocortisone 2.5% (Proctosol HC) 1 appl [place] BEDTIME PRN insulin glargine (Lantus Solostar U-100 Insulin) 25 units subcut QAM insulin NPH and regular human 100 unit/mL (70-30) (Novolin 70-30 FlexPen U-100 Insulin) 20 units before breakfast and 20 units before dinner. subcutaneously 2 times a day; 30 days insulin syringe-needle U-100 As directed lactulose 20 grams (30 mL) PO BID PRN 2 days lancets (FreeStyle Lancets) As directed four time a day levofloxacin 750 mg PO DAILY lisinopril 10 mg PO DAILY 90 days metformin 1,000 mg PO BID methylcellulose (laxative) (Fiber Therapy (methylcellulose)) 500 mg PO TID miscellaneous medical supply Motorized Electric Scooter. Daily As directed, 999 days. [employer] medical supply diabetic shoes naproxen sodium (Aleve) 220 mg PO BID PRN nirmatrelvir-ritonavir 300 mg (150 mg x 2)-100 mg (Paxlovid) take TWO 150 mg tablets of nirmatrelvir with ONE 100 mg tablet of ritonavir twice daily for 5 days PO pen needle, diabetic (BD Mirta 2nd Gen Pen Needle) As directed twice a day polyethylene glycol 3350 (Purelax) 17 grams PO DAILY sildenafil 100 mg PO DAILY PRN 30 days tiotropium bromide 2.5 mcg/actuation (Spiriva Respimat) 2 puffs PO DAILY ustekinumab (Stelara) 90 mg subcut Q12W Tobacco use date assessed: 12/18/23 Dental Screening Dental Screen Date: 12/18/23 Did you have a dental visit in the last 12 months?: No Did you have a dental problem in the last 6 months where you did not have access to dental care?: No Was dental information given to patient?: Patient declined HPI pressure sore HPI Details 58 y/o male presents today with complain ts of pressure sores on R side upper leg/buttock area. [facility] Medical History Obesity due to excess calories Type 2 diabetes mellitus with hyperglycemia, with long-term current use of insulin Chronic pain GEORGE (obstructive sleep apnea) COPD (chronic obstructive pulmonary disease) Psoriasis Hyperlipidemia Essential hypertension Surgical History History of repair of hiatal hernia Family History Father Diabetes Social History Household Members: Spouse Housing: Apartment Alcohol intake: never Patient Tobacco Use Status: Former Tobacco user e-Cigarette/Vaping Use: Never Used Second Hand Smoke Exposure: No service: No Current occupational status: disabled Current occupational exposures/hazards: No Cognitive needs: No Hearing needs: No Vision needs: No Questionnaire Thrive Questionnaire Date Thrive assessed: 09/27/23 INES-7 AMB Questionnaire INES-7 Date INES - 7 assessed: 09/27/23 Source: Developed by Drs. Sharan Restrepo, Yasmine Pineda, Romero Stark and colleagues, with an educational jeannette from [employer]. Review of Systems Const Denies chills, Denies fatigue, Denies fever(s), Denies headache(s) and Denies weakness ENT Denies dizziness and Denies headache(s) Card Denies dyspnea Resp Denies cough, Denies dyspnea, Denies wheezing and Denies other (shortness of breath) Musc Denies numbness and Denies tingling Neuro Denies dizziness, Denies headache(s), Denies numbness, Denies tingling and Denies weakness Psych Denies anxiety and Denies depression Endo Denies fatigue Aller/Immun Denies wheezing Physical exam (Primary Care) Vital Signs: Last Vital Signs Pulse 98 12/18/23 10:34 BP 118/70 12/18/23 10:34 Pulse Ox 99 12/18/23 10:34 Oxygen Delivery Method Room Air 12/18/23 10:34 BMI result Body Mass Index 55.5 Tobacco/Smoking Status: Tobacco use Status Tobacco use date assessed 12/18/23 12/18/23 10:37 Patient Tobacco Use Status Former Tobacco user 12/18/23 10:37 e-Cigarette/Vaping Use Never Used 12/18/23 10:37 Thrive Assessment: Date of Thrive Assessment Date Thrive assessed 09/27/23 12/18/23 10:37 Const General: well developed; No acute distress Nutritional Appearance: well nourished and obese morbidly obese Orientation/consciousness: patient oriented x3 HENMT Head: Yes normocephalic and Yes atraumatic Eyes General: appearance normal, both eyes and all related structures Pupils: Equal, round and reactive pupils present EOM: EOMs intact bilaterally Resp Effort & Inspection: normal respiratory effort Skin Other: 1cm in diameter stage 2 pressure ulcer on the upper inner thigh, slightly posterior stage 1 pressure ulcer on L inner thigh Neuro General: patient oriented x3 and gait normal Cranial nerves: Yes Equal, round and reactive pupils present Psych Affect: normal affect Assessment and Plan Assessment & Plan (1) Pressure ulcer: Code(s): L89.90 - Pressure ulcer of unspecified site, unspecified stage Plan: Small,?1?cm?in?diameter?Stage?II?pressure?ulcer?of?upper?inner?thigh?on?t he?right?and?slightly?posterior. Stage?I?pressure?ulcer?on?left?inner?thigh Important?to?work?at?offloading- he?is?already?using?a?cushion?but?will?get?a?donut?cushion. Change?positions?frequent Will? give?him?cephalexin?and?he?has?an?appointment?already?scheduled?in?about?9?days? so?we?can?follow-up?on?this. If?not?improving?will?refer?to?wound?care Orders: Referrals Cologuard Test Z12.11 - Encounter for screening for malignant neoplasm of colon, Z12.12 - Encounter for screening for malignant neoplasm of rectum Medications: New cephalexin 500 mg PO Q12H 10 days 20 caps 0RF Coding Level of Care Code Est Pt Level 3 (30280) Diagnoses Pressure ulcer L89.90
== END 2023-12-18 11:26 | disposition home or self-care (01) ==
PROVIDERS: PCP Family Medicine; Visit Provider Family Medicine
DX: L89.90 Pressure ulcer of unspecified site, unspecified stage (principal)
CPT/HCPCS: 99213

== ENCOUNTER 2023-12-25 10:26 | Outpatient (AMB) | payer OTHER, SELFPAY ==
--- NOTE | 2023-12-25 10:32 | A.OFFVIS_ITS ---
Vital Signs 12/25/23 10:39 Weight 313 lb BP 115/53 L Blood Pressure Location Lt brachial Position Sitting Pulse 106 H Intake Visit Reasons: constipation Intake Note: Patient follow up constipation Patient cc: constipation daily, denies any other GI issues. Medical Chief Technician Required: No Accompanied by: Self / Same As Patient Allergies Iodinated Contrast Media Allergy (Severe, Verified 12/25/23 10:31) Blister Gxeigry-MHU-YvX Reductase Inhibitor [Casxyjy-Qxb-Wzd Reductase Inhibitor] Allergy (Verified 12/25/23 10:31) Swollen sulfamethoxazole [From Bactrim] Allergy (Verified 12/25/23 10:31) Swollen trimethoprim [From Bactrim] Allergy (Verified 12/25/23 10:31) Swollen oxycodone Adverse Reaction (Verified 12/25/23 10:31) does not tolerate Medication List - Last Reconciled 12/25/23 by Casandra Arellano PA-C Advair Diskus 500-50 mcg/dose (fluticasone propion-salmeterol) 1 ea PO BID 30 days NS albuterol sulfate 90 mcg/actuation 2 puffs inhalation Q4-6H PRN 30 days albuterol sulfate 2.5 mg (3 mL) inhalation Q4H PRN benzonatate 200 mg PO BID PRN betamethasone dipropionate 0.05% appl topical blood sugar diagnostic (FreeStyle Lite Strips) As directed four times a day cephalexin 500 mg PO Q12H 10 days docusate sodium 200 mg (2 x 100 mg) PO BEDTIME ezetimibe 10 mg PO DAILY fluticasone propionate 50 mcg/actuation 1 spray intranasal BID 30 days hydrocortisone 2.5% (Proctosol HC) 1 appl [place] BEDTIME PRN insulin glargine (Lantus Solostar U-100 Insulin) 25 units subcut QAM insulin NPH and regular human 100 unit/mL (70-30) (Novolin 70-30 FlexPen U-100 Insulin) 20 units before breakfast and 20 units before dinner. subcutaneously 2 times a day; 30 days insulin syringe-needle U-100 As directed lactulose 20 grams (30 mL) PO BID PRN 2 days lancets (FreeStyle Lancets) As directed four time a day levofloxacin 750 mg PO DAILY lisinopril 10 mg PO DAILY 90 days metformin 1,000 mg PO BID methylcellulose (laxative) (Fiber Therapy (methylcellulose)) 500 mg PO TID miscellaneous medical supply Motorized Electric Scooter. Daily As directed, 999 days. [employer] medical supply diabetic shoes naproxen sodium (Aleve) 220 mg PO BID PRN pen needle, diabetic (BD Mirta 2nd Gen Pen Needle) As directed twice a day polyethylene glycol 3350 (Purelax) 17 grams PO DAILY sildenafil 100 mg PO DAILY PRN 30 days tiotropium bromide 2.5 mcg/actuation (Spiriva Respimat) 2 puffs PO DAILY ustekinumab (Stelara) 90 mg subcut Q12W HPI Comments Details: 58-year-old male chronic constipation seen last in May follows up with progress He is awaiting cologuard-to be delivered Trying to lose wt-for hip surgery-still on hold, he has a ways to go he walks with to walking sticks for balance He has been given a bowel regimen with recommendation of high-fiber diet- he says as long as he follows regimen- he goes fine- puralax, colace and fiber- As he presents today- hes taking keflex for pressure sore- healing well All he has no GI complaints Appetite is excellent had made dietary modifications trying to lose some weight as well keep blood sugars better maintained He has no nausea, vomiting, hematemesis, hematochezia fever chills PFSH Medical History Obesity due to excess calories Type 2 diabetes mellitus with hyperglycemia, with long-term current use of insulin Chronic pain GEORGE (obstructive sleep apnea) COPD (chronic obstructive pulmonary disease) Psoriasis Hyperlipidemia Essential hypertension Surgical History History of repair of hiatal hernia Family History Father Diabetes Social History Household Members: Spouse Housing: Apartment Alcohol intake: never Patient Tobacco Use Status: Former Tobacco user e-Cigarette/Vaping Use: Never Used Second Hand Smoke Exposure: No service: No Current occupational status: disabled Current occupational exposures/hazards: No Cognitive needs: No Hearing needs: No Vision needs: No Review of Systems Const All systems reviewed & are unremarkable except as noted in HPI and below GI Denies abdominal pain and Reports constipation Physical Exam Vital Signs: Last Vital Signs Pulse 106 H 12/25/23 10:39 BP 115/53 L 12/25/23 10:39 Const General: cooperative and comfortable Nutritional Appearance: obese Orientation/consciousness: patient oriented x3 Limitations: ambulation with cane Eyes Sclerae: sclerae normal Resp Effort & Inspection: normal respiratory effort and able to speak in complete sentences Neuro General: patient oriented x3 Extrem Other: 2 walking sticks Psych Mental Status: mental status grossly normal Speech and movement: Clear speech present Affect: normal affect Attitude: cooperative Thought process: Normal thought process present Thought content: Normal thought content present Insight: Good insight present (Psych) Assessment & Plan Assessment & Plan (1) Constipation: Comment: Multiple comorbidities, COPD, GEORGE, hypertension, diabetes, obesity, Code(s): K59.00 - Constipation, unspecified Category: Medical Plan: Maintain bowel regimen (2) Morbid obesity: Comment: Weight loss- Code(s): E66.01 - Morbid (severe) obesity due to excess calories Category: Medical Plan: Continue with weight loss Plan Continue consistent bowel regimen Maintain high-fiber diet Well hydration Follow-up with Cologuard Patient Instructions: Continue consistent bowel regimen Maintain high-fiber diet-literature give Well hydration Follow-up with Cologuard-if positive recommend colonoscopy, timing approved He may follow-up with PCP Call questions or concerns Coding Level of Care Code Est Pt Level 3 (13714) Diagnoses Constipation K59.00 Morbid obesity E66.01 Time Spent (min) 30
[2023-12-25 10:39] VITALS: BP 115/53; PULSE 106
== END 2023-12-25 10:55 | disposition home or self-care (01) ==
PROVIDERS: PCP Family Medicine; Visit Provider Physician Assistant
DX: K59.00 Constipation, unspecified (principal); E66.01 Morbid (severe) obesity due to excess calories
CPT/HCPCS: 99213

== ENCOUNTER → 2023-12-25 10:26 | Outpatient (BNVA) | payer OTHER, SELFPAY | PROVIDERS: PCP Family Medicine; Visit Provider Physician Assistant | DX: K59.00 Constipation, unspecified (principal); E66.01 Morbid (severe) obesity due to excess calories | CPT/HCPCS: 99212 ==

== ENCOUNTER 2023-12-27 10:40 | Outpatient (AMB) | payer OTHER, SELFPAY ==
[2023-12-27 11:28] VITALS: BP 120/62; PULSE 106; O2SAT 98; BMI 55.5
--- NOTE | 2023-12-27 11:28 | A.OFFPC_ITS ---
Vital Signs 12/27/23 11:28 Height 5 ft 3 in Weight 313 lb 4 oz BMI 55.5 BP 120/62 Blood Pressure Location Lt brachial Position Sitting Pulse 106 H Pulse Source Pulse Oximeter Pulse Oximetry (%) 98 Oxygen Delivery Method Room Air Intake Visit Reasons: follow up dm htn Intake Note: Patient is here to follow up on his diabetes today. Allergies Iodinated Contrast Media Allergy (Severe, Verified 12/27/23 11:40) Blister Fdlcyzf-VIC-GjT Reductase Inhibitor [Xkryyrg-Qwd-Ltb Reductase Inhibitor] Allergy (Verified 12/27/23 11:40) Swollen sulfamethoxazole [From Bactrim] Allergy (Verified 12/27/23 11:40) Swollen trimethoprim [From Bactrim] Allergy (Verified 12/27/23 11:40) Swollen oxycodone Adverse Reaction (Verified 12/27/23 11:40) does not tolerate Tobacco use date assessed: 12/27/23 Dental Screening Dental Screen Date: 12/27/23 Did you have a dental visit in the last 12 months?: No Did you have a dental problem in the last 6 months where you did not have access to dental care?: No Was dental information given to patient?: Patient has dentist HPI follow up dm htn HPI Details 58 y/o male presents to f/u diabetes, hy pertension. Blood pressure today 120/62, 106p. He is on lisinopril 10mg. A1c today 12/27/23 7.7%. He is on metformin 1000mg, insluin Novolin, Lantus 25 units. [facility] Medical History Obesity due to excess calories Type 2 diabetes mellitus with hyperglycemia, with long-term current use of insulin Chronic pain GEORGE (obstructive sleep apnea) COPD (chronic obstructive pulmonary disease) Psoriasis Hyperlipidemia Essential hypertension Surgical History History of repair of hiatal hernia Family History Father Diabetes Social History Household Members: Spouse Housing: Apartment Alcohol intake: never Patient Tobacco Use Status: Former Tobacco user e-Cigarette/Vaping Use: Never Used Second Hand Smoke Exposure: No service: No Current occupational status: disabled Current occupational exposures/hazards: No Cognitive needs: No Hearing needs: No Vision needs: No Questionnaire Thrive Questionnaire Date Thrive assessed: 09/27/23 INES-7 AMB Questionnaire INES-7 Date INES - 7 assessed: 09/27/23 Source: Developed by Drs. Sharan Restrepo, Yasmine Pineda, Romero Stark and colleagues, with an educational jeannette from [employer]. Review of Systems Const Denies chills, Denies fatigue, Denies fever(s), Denies headache(s) and Denies weakness ENT Denies dizziness and Denies headache(s) Card Denies dyspnea Resp Denies cough, Denies dyspnea, Denies wheezing and Denies other (shortness of breath) Musc Denies numbness and Denies tingling Neuro Denies dizziness, Denies headache(s), Denies numbness, Denies tingling and Denies weakness Psych Denies anxiety and Denies depression Endo Denies fatigue Aller/Immun Denies wheezing Physical exam (Primary Care) Vital Signs: Last Vital Signs Pulse 106 H 12/27/23 11:28 BP 120/62 12/27/23 11:28 Pulse Ox 98 12/27/23 11:28 Oxygen Delivery Method Room Air 12/27/23 11:28 BMI result Body Mass Index 55.5 Tobacco/Smoking Status: Tobacco use Status Tobacco use date assessed 12/27/23 12/27/23 11:42 Patient Tobacco Use Status Former Tobacco user 12/27/23 11:32 e-Cigarette/Vaping Use Never Used 12/27/23 11:32 Thrive Assessment: Date of Thrive Assessment Date Thrive assessed 09/27/23 12/27/23 11:32 Const General: well developed; No acute distress Nutritional Appearance: obese morbidly obese Orientation/consciousness: patient oriented x3 HENMT Head: Yes normocephalic and Yes atraumatic Eyes General: appearance normal, both eyes and all related structures Pupils: Equal, round and reactive pupils present EOM: EOMs intact bilaterally Resp Effort & Inspection: normal respiratory effort Auscultation: clear to auscultation bilaterally Cardio Rate: regular rate Rhythm: regular rhythm Heart sounds: S1 normal heart sound present, S2 normal heart sound present, no gallops, no murmurs and no rubs Skin Other: Stage?II?pressure?ulcer?on?right?buttock - this?no?longer?appears?infected?however?does?not?appear?to?have?healed?any?eithe r. Stage?I?pressure?ulcer?on?left?buttock, unchanged Neuro General: patient oriented x3 and gait normal Cranial nerves: Yes Equal, round and reactive pupils present Psych Affect: normal affect Results AMB Hemoglobin A1c AMB Hemoglobin A1c 7.7 % Last Edit by Sherry Vega CMA on 12/27/23 11:46 Results Reviewed Results Reviewed: Laboratory Last Values Hgb A1c (Clinic) 7.7 % (4.0-6.0) H 12/27/23 11:45 Assessment and Plan Assessment & Plan (1) Essential hypertension: Code(s): I10 - Essential (primary) hypertension Plan: Blood?pressure?is?controlled.??Goal?is?less?than?140/90 Continue?current?medication (2) Diabetes mellitus type 2, insulin dependent: Code(s): E11.9 - Type 2 diabetes mellitus without complications; 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 Advised?patient?that?his?A1c?is?high.??Continued?follow- up?with?endocrinology?as?recommended (3) Stage II pressure ulcer of buttock: Code(s): L89.302 - Pressure ulcer of unspecified buttock, stage 2 Plan: Ongoing?stage?II?pressure?ulcer?of?right?buttock?and?stage?I?pressure?ulcer?of?l eft?buttock. Right?buttock?ulcer?is?no?longer?infected?however?this?also?does?not?show?signs? of?healing?either. Needs ?to?offload?pressure?and?I?have?given?him?a?script?for?a?donut?cushion?as?he?has ?not?picked?this?up?yet. No?current?need?for?an?antibiotic?though?I?let?him?know?that?this?is?certainly?a ?set?up?for?another?infection. Will?get?close?follow- up?in?2?weeks?but?he?will?call?me?if?any?worsening?pain?swelling?or?drainage. Patient?adamantly?does?not?want?to?go?to?wound?care?but?I?told?him?that?if?there ?is?no?signs?of?improvement?we?should?consider?this. Orders: Orders AMB Hemoglobin A1c Today Z13.9 - Encounter for screening, unspecified Medications: New miscellaneous medical supply Fidelina Gonsales. Daily As directed, 999 days 1 ea 0RF L89.302 - Pressure ulcer of unspecified buttock, stage 2 Coding Level of Care Code Est Pt Level 3 (80976) Diagnoses Essential hypertension I10 Diabetes mellitus type 2, insulin dependent E11.9; Z79.4 Stage II pressure ulcer of buttock L89.302
== END 2023-12-27 16:15 | disposition home or self-care (01) ==
PROVIDERS: PCP Family Medicine; Visit Provider Family Medicine
DX: I10 Essential (primary) hypertension (principal); E11.9 Type 2 diabetes mellitus without complications; Z79.4 Long term (current) use of insulin; L89.302 Pressure ulcer of unspecified buttock, stage 2
CPT/HCPCS: 83036; 99213

== ENCOUNTER 2024-01-17 11:24 | Outpatient (AMB) | payer OTHER, SELFPAY ==
[2024-01-17 11:59] VITALS: BP 120/68; PULSE 92; O2SAT 97; BMI 54.2
--- NOTE | 2024-01-17 11:59 | MHC.PC.OV ---
Vital Signs 01/17/24 11:59 Height 5 ft 3 in Weight 306 lb BMI 54.2 BP 120/68 Blood Pressure Location Lt brachial Position Sitting Pulse 92 Pulse Source Pulse Oximeter Pulse Oximetry (%) 97 Oxygen Delivery Method Room Air Intake Visit Reasons: f/u pressure ulcers Intake Note: Patient is here to follow up on pressure ulcers. He states he is doing better, feels it may be gone. Allergies Iodinated Contrast Media Allergy (Severe, Verified 01/17/24 12:01) Blister Npwweva-DSM-ImN Reductase Inhibitor [Ujafmso-Bck-Wnv Reductase Inhibitor] Allergy (Verified 01/17/24 12:01) Swollen sulfamethoxazole [From Bactrim] Allergy (Verified 01/17/24 12:01) Swollen trimethoprim [From Bactrim] Allergy (Verified 01/17/24 12:01) Swollen oxycodone Adverse Reaction (Verified 01/17/24 12:01) does not tolerate Tobacco use date assessed: 01/17/24 Dental Screening Dental Screen Date: 01/17/24 HPI f/u pressure ulcers HPI Details 58 y/o male presents to re-evaluate pressure ulcer. He had had a stage II, infected pressure ulcer on right buttock and this no longer appears infected after cephalexin but has not begun any healing. Still a significant set up for another infection or worsening of his ulcer. [facility] Medical History Obesity due to excess calories Type 2 diabetes mellitus with hyperglycemia, with long-term current use of insulin Chronic pain GEORGE (obstructive sleep apnea) COPD (chronic obstructive pulmonary disease) Psoriasis Hyperlipidemia Essential hypertension Surgical History History of repair of hiatal hernia Family History Father Diabetes Social History Household Members: Spouse Housing: Apartment Alcohol intake: never Patient Tobacco Use Status: Former Tobacco user e-Cigarette/Vaping Use: Never Used Second Hand Smoke Exposure: No service: No Current occupational status: disabled Current occupational exposures/hazards: No Cognitive needs: No Hearing needs: No Vision needs: No Questionnaire Thrive Questionnaire Date Thrive assessed: 09/27/23 INES-7 AMB Questionnaire INES-7 Date INES - 7 assessed: 09/27/23 Source: Developed by Drs. Sharan Restrepo, Yasmine Pineda, Romero Stark and colleagues, with an educational jeannette from [employer]. Review of Systems Const Denies chills, Denies fatigue, Denies fever(s), Denies headache(s) and Denies weakness ENT Denies dizziness and Denies headache(s) Card Denies dyspnea Resp Denies cough, Denies dyspnea, Denies wheezing and Denies other (shortness of breath) Musc Denies numbness and Denies tingling Neuro Denies dizziness, Denies headache(s), Denies numbness, Denies tingling and Denies weakness Psych Denies anxiety and Denies depression Endo Denies fatigue Aller/Immun Denies wheezing Physical exam (Primary Care) Vital Signs: Last Vital Signs Pulse 92 01/17/24 11:59 BP 120/68 01/17/24 11:59 Pulse Ox 97 01/17/24 11:59 Oxygen Delivery Method Room Air 01/17/24 11:59 BMI result Body Mass Index 54.2 Tobacco/Smoking Status: Tobacco use Status Tobacco use date assessed 01/17/24 01/17/24 12:05 Patient Tobacco Use Status Former Tobacco user 01/17/24 12:01 e-Cigarette/Vaping Use Never Used 01/17/24 12:01 Thrive Assessment: Date of Thrive Assessment Date Thrive assessed 09/27/23 01/17/24 12:01 Const General: well developed; No acute distress Nutritional Appearance: obese morbidly obese Orientation/consciousness: patient oriented x3 [facility] Head: Yes normocephalic and Yes atraumatic Eyes General: appearance normal, both eyes and all related structures Pupils: Equal, round and reactive pupils present EOM: EOMs intact bilaterally Resp Effort & Inspection: normal respiratory effort Neuro General: patient oriented x3 and gait normal Cranial nerves: Yes Equal, round and reactive pupils present Psych Affect: normal affect Assessment and Plan Assessment & Plan (1) Stage II pressure ulcer of buttock: Code(s): L89.302 - Pressure ulcer of unspecified buttock, stage 2 Plan: Wound?at?right?buttock?is?greatly?improved He?had?also?had?a?smaller?wound?at?left?buttock?and?this?seems?to?have?resolved He?is?still?using?a?cushion?that?does?not?have?a?donut?hole?because?insurance?would?not?cover?that?but?he?says?he?will?pick?up?an?inexpensive?1?on?[employer]?and?I?encouraged?this. Continue?offloading Continue?dressing?changes?and?keep?ulcer?clean Continue?to?improve?blood?sugar?control. 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 Continue?working?on?diabetic?diet?and?continue?medication?regimen Follow-up?with?endocrinology?as?recommended He?will?follow-up?with?me?for?diabetes?in?a?few?months (3) Morbid obesity: Comment: Weight loss- Code(s): E66.01 - Morbid (severe) obesity due to excess calories Plan: Patient?has?been?working?on?weight?loss?and?has?lost?about?18?lb?in?the?last?6?months Encouraged?ongoing?weight?loss. Coding Level of Care Code Est Pt Level 4 (76373) Diagnoses Stage II pressure ulcer of buttock L89.302 Diabetes mellitus type 2, insulin dependent E11.9; Z79.4 Morbid obesity E66.01
== END 2024-01-17 12:56 | disposition home or self-care (01) ==
PROVIDERS: PCP Family Medicine; Visit Provider Family Medicine
DX: E11.9 Type 2 diabetes mellitus without complications (principal); L89.302 Pressure ulcer of unspecified buttock, stage 2; E66.01 Morbid (severe) obesity due to excess calories; Z68.43 Body mass index [BMI] 50.0-59.9, adult; Z79.4 Long term (current) use of insulin
CPT/HCPCS: 99214

== ENCOUNTER 2024-02-27 11:17 | Outpatient (AMB) | payer OTHER, SELFPAY ==
[2024-02-27 11:19] VITALS: BP 126/77; PULSE 100; O2SAT 99; BMI 54.9
--- NOTE | 2024-02-27 11:19 | A.OFFVIS_ITS ---
Vital Signs 02/27/24 11:19 Height 5 ft 3 in Weight 309 lb 11.991 oz BMI 54.9 BP 126/77 Blood Pressure Location Rt brachial Position Sitting Pulse 100 Pulse Source Doppler Pulse Oximetry (%) 99 Oxygen Delivery Method Room Air Intake Visit Reasons: COPD Allergies Iodinated Contrast Media Allergy (Severe, Verified 01/17/24 12:01) Blister Pgyhylx-PZM-TwD Reductase Inhibitor [Wbxljwk-Tvm-Njc Reductase Inhibitor] Allergy (Verified 01/17/24 12:01) Swollen sulfamethoxazole [From Bactrim] Allergy (Verified 01/17/24 12:01) Swollen trimethoprim [From Bactrim] Allergy (Verified 01/17/24 12:01) Swollen oxycodone Adverse Reaction (Verified 01/17/24 12:01) does not tolerate HPI HPI COPD: Details: 58-year-old gentleman former 30+ pack-year smoker, quit 2004 prior with underlying history of morbid obesity, GEORGE, environmental allergies, and COPD.? He uses brand Advair 500 and Spiriva Respimat with good control of his symptoms.? He denies any recent exacerbations. Patient did not tolerate CPAP. [facility] Medical History Obesity due to excess calories Type 2 diabetes mellitus with hyperglycemia, with long-term current use of insulin Chronic pain GEORGE (obstructive sleep apnea) COPD (chronic obstructive pulmonary disease) Psoriasis Hyperlipidemia Essential hypertension Surgical History History of repair of hiatal hernia Family History Father Diabetes Social History Household Members: Spouse Housing: Apartment Alcohol intake: never Patient Tobacco Use Status: Former Tobacco user e-Cigarette/Vaping Use: Never Used Second Hand Smoke Exposure: No service: No Current occupational status: disabled Current occupational exposures/hazards: No Cognitive needs: No Hearing needs: No Vision needs: No Review of Systems Const Denies daytime sleepiness, Denies excessive sweating, Denies fatigue, Denies fever(s), Denies lethargy, Denies malaise, Denies night sweats, Denies snoring and Denies weight loss Eyes Denies blurry vision and Denies itchy eyes ENT Denies nasal congestion, Denies post nasal drip, Denies sinus pain, Denies sinus pressure and Denies other ( Thrush) Card Denies chest pain, Denies pedal edema, Denies dyspnea, Denies orthopnea and Denies paroxysmal nocturnal dyspnea Resp Denies cough, Denies hemoptysis, Denies excessive phlegm production, Denies dyspnea, Denies snoring and Denies wheezing GI Denies abdominal pain and Denies heartburn Musc Denies myalgias, Denies arthralgias and Denies joint swelling Skin/Breast Denies rash Neuro Denies memory loss and Denies seizure-like activity Psych Denies abnormal sleep pattern, Denies anxiety and Denies memory loss Endo Denies excessive sweating, Denies fatigue and Denies heat intolerance Varun/Lymph Denies easy bruising Aller/Immun Denies itchy eyes, Denies seasonal rhinorrhea and Denies wheezing Physical Exam Vital Signs: Last Vital Signs Pulse 100 02/27/24 11:19 BP 126/77 02/27/24 11:19 Pulse Ox 99 02/27/24 11:19 Oxygen Delivery Method Room Air 02/27/24 11:19 BMI result Body Mass Index 54.9 Const General: no acute distress and alert Nutritional Appearance: obese Orientation/consciousness: Other orientation findings ( oriented) HEENT Head: Yes atraumatic Eyes General: appearance normal, both eyes and all related structures Sclerae: sclerae normal EOM: EOMs intact bilaterally Neck Neck: Yes supple Lymphatic: no lymphadenopathy noted Resp Effort & Inspection: normal respiratory effort and no use of accessory muscles Auscultation: clear to auscultation bilaterally Cardio Rate: regular rate Rhythm: regular rhythm Heart sounds: no gallops, no murmurs and no rubs Skin General skin exam: other ( warm) Extrem General: No clubbing, No cyanosis and No edema Assessment & Plan Assessment & Plan (1) Environmental allergies: Code(s): Z91.09 - Other allergy status, other than to drugs and biological substances Category: Medical Plan: Well controlled on Flonase. Continue current regimen. (2) GEORGE (obstructive sleep apnea): Code(s): G47.33 - Obstructive sleep apnea (adult) (pediatric) Category: Medical Plan: Unable to tolerate CPAP. Patient continues to work on losing weight, now losing approximately 54 lb intentionally. Information on weight management service provided. (3) Asthma-COPD overlap syndrome: Code(s): J44.9 - Chronic obstructive pulmonary disease, unspecified Category: Medical Plan: Well controlled on current regimen of brand Advair/Spiriva and albuterol MDI. Continue current regimen. Coding Level of Care Code Est Pt Level 4 (82849) Diagnoses Environmental allergies Z91.09 GEORGE (obstructive sleep apnea) G47.33 Asthma-COPD overlap syndrome J44.9
== END 2024-02-27 11:35 | disposition home or self-care (01) ==
PROVIDERS: PCP Family Medicine; Visit Provider Internal Medicine Pulmonary Disease
DX: Z91.09 Other allergy status, other than to drugs and biological substances (principal); G47.33 Obstructive sleep apnea (adult) (pediatric); J44.9 Chronic obstructive pulmonary disease, unspecified
CPT/HCPCS: 99214

== ENCOUNTER → 2024-02-27 11:17 | Outpatient (BNVA) | payer OTHER, SELFPAY | PROVIDERS: PCP Family Medicine; Visit Provider Internal Medicine Pulmonary Disease | DX: J44.9 Chronic obstructive pulmonary disease, unspecified (principal); G47.33 Obstructive sleep apnea (adult) (pediatric); Z91.09 Other allergy status, other than to drugs and biological substances | CPT/HCPCS: 99212 ==

== ENCOUNTER 2024-03-30 11:04 | Outpatient (AMB) | payer OTHER, SELFPAY ==
[2024-03-30 11:40] VITALS: BP 118/60; PULSE 98; O2SAT 98; BMI 54.4
--- NOTE | 2024-03-30 11:40 | MHC.PC.OV ---
Vital Signs 03/30/24 11:40 Height 5 ft 3 in Weight 307 lb 2 oz BMI 54.4 BP 118/60 Blood Pressure Location Rt brachial Position Sitting Pulse 98 Pulse Source Pulse Oximeter Pulse Oximetry (%) 98 Oxygen Delivery Method Room Air Intake Visit Reasons: f/u hypertension, diabetes Intake Note: Omar is a 58 year old male who presents to the office today for a f/u hypertension and diabetes. Pt states he doesn't have any concerns today. Allergies Iodinated Contrast Media Allergy (Severe, Verified 03/30/24 11:40) Blister Vqbifou-ZAY-UwX Reductase Inhibitor [Ofdiens-Csv-Wmd Reductase Inhibitor] Allergy (Verified 03/30/24 11:40) Swollen sulfamethoxazole [From Bactrim] Allergy (Verified 03/30/24 11:40) Swollen trimethoprim [From Bactrim] Allergy (Verified 03/30/24 11:40) Swollen oxycodone Adverse Reaction (Verified 03/30/24 11:40) does not tolerate Medication List - Last Reconciled 03/30/24 by Paresh Trivedi MD Advair Diskus 500-50 mcg/dose (fluticasone propion-salmeterol) 1 ea PO BID 30 days NS albuterol sulfate 90 mcg/actuation 2 puffs inhalation Q4-6H PRN 30 days albuterol sulfate 2.5 mg (3 mL) inhalation Q4H PRN betamethasone dipropionate 0.05% appl topical blood sugar diagnostic (FreeStyle Lite Strips) As directed four times a day docusate sodium 200 mg (2 x 100 mg) PO BEDTIME ezetimibe 10 mg PO DAILY fluticasone propionate 50 mcg/actuation 1 spray intranasal BID 30 days hydrocortisone 2.5% (Proctosol HC) 1 appl RI BEDTIME PRN insulin glargine (Lantus Solostar U-100 Insulin) 25 units subcut QAM insulin syringe-needle U-100 As directed lactulose 20 grams (30 mL) PO BID PRN 2 days lancets (FreeStyle Lancets) As directed four time a day lisinopril 10 mg PO DAILY 90 days metformin 1,000 mg PO BID methylcellulose (laxative) (Fiber Therapy (methylcellulose)) 625 mg (1.25 x 500 mg) PO TID ih[employer] supply [employer]. Daily As directed, 999 days. miscellaneous medical supply diabetic shoes miscellaneous medical supply Doneliseo Lepeion. Daily As directed, 999 days naproxen sodium (Aleve) 220 mg PO BID PRN pen needle, diabetic (BD Imrta 2nd Gen Pen Needle) As directed twice a day polyethylene glycol 3350 (Purelax) 17 grams PO DAILY sildenafil 100 mg PO DAILY PRN 30 days tiotropium bromide 2.5 mcg/actuation (Spiriva Respimat) 2 puffs PO DAILY ustekinumab (Stelara) 90 mg subcut Q12W Tobacco use date assessed: 01/17/24 Dental Screening Dental Screen Date: 01/17/24 HPI f/u hypertension, diabetes HPI Details 58 y/o male presents to f/u hypertension, diabetes. A1c today 03/30/24 6.8%. He is on metformin 1000mg b.i.d, insulin glargine 25 units. Blood pressure today 118/60. He is on lisinopril 10mg. [facility] Medical History Obesity due to excess calories Type 2 diabetes mellitus with hyperglycemia, with long-term current use of insulin Chronic pain GEORGE (obstructive sleep apnea) COPD (chronic obstructive pulmonary disease) Psoriasis Hyperlipidemia Essential hypertension Surgical History History of repair of hiatal hernia Family History Father Diabetes Social History Household Members: Spouse Housing: Apartment Alcohol intake: never Patient Tobacco Use Status: Former Tobacco user e-Cigarette/Vaping Use: Never Used Second Hand Smoke Exposure: No service: No Current occupational status: disabled Current occupational exposures/hazards: No Cognitive needs: No Hearing needs: No Vision needs: No Questionnaire PHQ-9 Over the last 2 weeks, how often have you been bothered by any of the following problems? 1. Little interest or pleasure in doing things: not at all 2. Feeling down, depressed, or hopeless: not at all 3. Trouble falling or staying asleep, or sleeping too much: not at all 4. Feeling tired or having little energy: not at all 5. Poor appetite or overeating: not at all 6. Feeling bad about yourself - or that you are a failure or have let yourself or your family down: not at all 7. Trouble concentrating on things, such as reading the newspaper or watching television: not at all 8. Moving or speaking so slowly that other people could have noticed. Or the opposite - being so fidgety or restless that you have been moving around a lot more than usual: not at all 9. Thoughts that you would be better off or of hurting yourself in some way: not at all Total score: 0 Source: Developed by Drs. Sharan Restrepo, Yasmine Pineda, Romero Stark and colleagues, with an educational jeannette from [employer]. Thrive Questionnaire Date Thrive assessed: 09/27/23 I am a: Patient What is your living situation today?: I have a steady place to live Within the past 12 months, did the food you bought not last and you didn't have the money to get more?: Never true Within the past 12 months, did you worry whether your food would run out before you got money to buy more?: Never true Do you have trouble paying for medicines?: No Do you have trouble getting transportation to medical appointments?: No Do you have trouble paying your heating and electricity bill?: No Do you have trouble taking care of your child, family member or friend?: No Do you have trouble with day-to-day activities such as bathing, preparing meals, shopping, managing finances, etc.?: No Are you currently unemployed and looking for a job?: No Are you interested in more education?: No THRIVE Score: 0 AUDIT C Alcohol Use Questionnaire (AUDIT-C) 1. How often do you have a drink containing alcohol?: Never 3. How often do you have six or more drinks on one occasion?: Never Total Score: 0 INES-7 AMB Questionnaire INES-7 Date INES - 7 assessed: 09/27/23 Feeling nervous, anxious, or on edge: 0 = Not at all Not being able to stop or control worryin = Not at all Worrying too much about different things: 0 = Not at all Trouble relaxin = Not at all Being so restless that it is hard to sit still: 0 = Not at all Becoming easily annoyed or irritable: 0 = Not at all Feeling afraid as if something awful might happen: 0 = Not at all Total INES-7 score (0-4 normal; 5-9 mild; 10-14 moderate; 15-21 severe): 0 Source: Developed by Drs. Sharan Restrepo, Yasmine Pineda, Romero Stark and colleagues, with an educational jeannette from [employer]. Review of Systems Const Denies chills, Denies fatigue, Denies fever(s), Denies headache(s) and Denies weakness ENT Denies dizziness and Denies headache(s) Card Denies dyspnea Resp Denies cough, Denies dyspnea, Denies wheezing and Denies other (shortness of breath) Musc Denies numbness and Denies tingling Neuro Denies dizziness, Denies headache(s), Denies numbness, Denies tingling and Denies weakness Psych Denies anxiety and Denies depression Endo Denies fatigue Aller/Immun Denies wheezing Physical exam (Primary Care) Vital Signs: Last Vital Signs Pulse 98 03/30/24 11:40 BP 118/60 03/30/24 11:40 Pulse Ox 98 03/30/24 11:40 Oxygen Delivery Method Room Air 03/30/24 11:40 BMI result Body Mass Index 54.4 Tobacco/Smoking Status: Tobacco use Status Tobacco use date assessed 01/17/24 03/30/24 11:41 Patient Tobacco Use Status Former Tobacco user 03/30/24 11:41 e-Cigarette/Vaping Use Never Used 03/30/24 11:41 PHQ-9: PHQ-9 Score PHQ-9: Total score 0 03/30/24 12:37 Thrive Assessment: Date of Thrive Assessment Date Thrive assessed 09/27/23 03/30/24 11:41 Const General: well developed; No acute distress Nutritional Appearance: well nourished and obese morbidly obese Orientation/consciousness: patient oriented x3 HENMT Head: Yes normocephalic and Yes atraumatic Eyes General: appearance normal, both eyes and all related structures Pupils: Equal, round and reactive pupils present EOM: EOMs intact bilaterally Resp Effort & Inspection: normal respiratory effort Neuro General: patient oriented x3 and gait normal Cranial nerves: Yes Equal, round and reactive pupils present Psych Affect: normal affect Results AMB Hemoglobin A1c AMB Hemoglobin A1c 6.8 % Last Edit by Dalia Barraza CMA on 03/30/24 12:13 Results Reviewed Results Reviewed: Laboratory Last Values Hgb A1c (Clinic) 6.8 % (4.0-6.0) H 03/30/24 12:00 Assessment and Plan Assessment & Plan (1) Essential hypertension: Code(s): I10 - Essential (primary) hypertension Plan: Blood?pressure?is?well?controlled.??Goal?is?less?than?140/90 Continue?current?medication Watch?salt/sodium Continue?weight?loss Encouraged?exercise (2) Diabetes mellitus type 2, insulin dependent: Code(s): E11.9 - Type 2 diabetes mellitus without complications; 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 Continuing?metformin?as?prescribed (3) Hyperlipidemia: Code(s): E78.5 - Hyperlipidemia, unspecified Plan: He?does?not?tolerate?statins?but?is?tolerating?Zetia?which?he?has?been?on?for?quite?some?time. Last?cholesterol?levels?in?September?showed?good?control Continue?Zetia Continue?diet?and?weight?loss Encouraged?exercise (4) Morbid obesity: Comment: Weight loss- Code(s): E66.01 - Morbid (severe) obesity due to excess calories Plan: Patient?has?been?working?on?weight?loss?and?feeling?much?better?for Encouraged?ongoing?steady?weight?loss (5) Screening for colon cancer: Code(s): Z12.11 - Encounter for screening for malignant neoplasm of colon Plan: Reviewed?Cologuard?test?with?patient Cologuard?test?in?January?was?negative?for?abnormal?DNA Will?continue?Cologuard?testing?every?3?years Up-to-date Orders: Orders AMB Hemoglobin A1c Today E11.9 - Type 2 diabetes mellitus without complications, Z79.4 - detention (current) use of insulin Coding Level of Care Code Est Pt Level 4 (21559) Diagnoses Essential hypertension I10 Diabetes mellitus type 2, insulin dependent E11.9; Z79.4 Hyperlipidemia E78.5 Morbid obesity E66.01 Screening for colon cancer Z12.11
== END 2024-03-30 13:01 | disposition home or self-care (01) ==
PROVIDERS: PCP Family Medicine; Visit Provider Family Medicine
DX: I10 Essential (primary) hypertension (principal); E11.9 Type 2 diabetes mellitus without complications; Z79.4 Long term (current) use of insulin; E78.5 Hyperlipidemia, unspecified; E66.01 Morbid (severe) obesity due to excess calories; Z68.43 Body mass index [BMI] 50.0-59.9, adult
CPT/HCPCS: 83036; 99214

== ENCOUNTER → 2024-07-10 09:12 | Outpatient (BNVA) | payer OTHER, SELFPAY | PROVIDERS: PCP Family Medicine; Visit Provider Family Medicine | DX: Z23 Encounter for immunization (principal) | CPT/HCPCS: 90471; 90656 ==

== ENCOUNTER 2024-07-21 09:23 | Outpatient (AMB) | payer OTHER, SELFPAY ==
--- NOTE | 2024-07-21 09:50 | MHC.PC.OV ---
Vital Signs 07/21/24 09:52 Height 5 ft 3 in Weight 315 lb 2 oz BMI 55.8 BP 109/53 L Blood Pressure Location Rt brachial Position Sitting Respiration 16 Pulse 97 Pulse Source Pulse Oximeter Temp 97.7 F Temp Source Temporal Artery Scan Pulse Oximetry (%) 97 Oxygen Delivery Method Room Air Intake Visit Reasons: f/u diabetes, HTN Intake Note: DM,HTN f/u Allergies Iodinated Contrast Media Allergy (Severe, Verified 07/21/24 09:51) Blister Mzloicq-YFI-RxG Reductase Inhibitor [Ezfdkyr-Pmm-Tqz Reductase Inhibitor] Allergy (Verified 07/21/24 09:51) Swollen sulfamethoxazole [From Bactrim] Allergy (Verified 07/21/24 09:51) Swollen trimethoprim [From Bactrim] Allergy (Verified 07/21/24 09:51) Swollen oxycodone Adverse Reaction (Verified 07/21/24 09:51) does not tolerate Tobacco use date assessed: 01/17/24 Dental Screening Dental Screen Date: 01/17/24 HPI f/u diabetes, HTN HPI Details 59 y/o male presents to f/u diabetes, HTN. A1c today 07/21/24 7.5%. He is on Lantus 25 units, metformin 1000mg b.i.d. Had seen Endocrinology 06/24/24. They had asked him to try Jardiance again due to nocturia. They note they would like to ideally put him on Mounjaro. Blood pressure today 109/53, 97p. He is on lisinopril 10mg daily. Notes some vertigo. Has not gotten an eye exam yet this year. [facility] Medical History Obesity due to excess calories Type 2 diabetes mellitus with hyperglycemia, with long-term current use of insulin Chronic pain GEORGE (obstructive sleep apnea) COPD (chronic obstructive pulmonary disease) Psoriasis Hyperlipidemia Essential hypertension Surgical History History of repair of hiatal hernia Family History Father Diabetes Social History Household Members: Spouse Housing: Apartment Alcohol intake: never Patient Tobacco Use Status: Former Tobacco user e-Cigarette/Vaping Use: Never Used Second Hand Smoke Exposure: No service: No Current occupational status: disabled Current occupational exposures/hazards: No Cognitive needs: No Hearing needs: No Vision needs: No Questionnaire PHQ-9 Over the last 2 weeks, how often have you been bothered by any of the following problems? 1. Little interest or pleasure in doing things: not at all 2. Feeling down, depressed, or hopeless: not at all 3. Trouble falling or staying asleep, or sleeping too much: nearly every day 4. Feeling tired or having little energy: several days 5. Poor appetite or overeating: not at all 6. Feeling bad about yourself - or that you are a failure or have let yourself or your family down: not at all 7. Trouble concentrating on things, such as reading the newspaper or watching television: not at all 8. Moving or speaking so slowly that other people could have noticed. Or the opposite - being so fidgety or restless that you have been moving around a lot more than usual: not at all 9. Thoughts that you would be better off or of hurting yourself in some way: not at all Total score: 4 Source: Developed by Drs. Sharan Restrepo, Yasmine Pineda, Romero Stark and colleagues, with an educational jeannette from [employer]. Thrive Questionnaire Date Thrive assessed: 09/27/23 I am a: Patient What is your living situation today?: I have a steady place to live Within the past 12 months, did the food you bought not last and you didn't have the money to get more?: Never true Within the past 12 months, did you worry whether your food would run out before you got money to buy more?: Never true Do you have trouble paying for medicines?: No Do you have trouble getting transportation to medical appointments?: No Do you have trouble paying your heating and electricity bill?: No Do you have trouble taking care of your child, family member or friend?: No Do you have trouble with day-to-day activities such as bathing, preparing meals, shopping, managing finances, etc.?: Yes Are you currently unemployed and looking for a job?: No Are you interested in more education?: No Please select the resources that you would like help with: None Currently or been in a relationship where the following occur: I choose not to answer THRIVE Score: 0 AUDIT C Alcohol Use Questionnaire (AUDIT-C) 1. How often do you have a drink containing alcohol?: Never Total Score: 0 INES-7 AMB Questionnaire INES-7 Date INES - 7 assessed: 09/27/23 Feeling nervous, anxious, or on edge: 0 = Not at all Not being able to stop or control worryin = Not at all Worrying too much about different things: 0 = Not at all Trouble relaxin = Not at all Being so restless that it is hard to sit still: 3 = Nearly every day Becoming easily annoyed or irritable: 0 = Not at all Source: Developed by Drs. Sharan Restrepo, Yasmine Pineda, Romero Stark and colleagues, with an educational jeannette from [employer]. Review of Systems Const Denies chills, Denies fatigue, Denies fever(s), Denies headache(s) and Denies weakness ENT Denies dizziness and Denies headache(s) Card Denies dyspnea Resp Denies cough, Denies dyspnea, Denies wheezing and Denies other (shortness of breath) Musc Denies numbness and Denies tingling Neuro Denies dizziness, Denies headache(s), Denies numbness, Denies tingling and Denies weakness Psych Denies anxiety and Denies depression Endo Denies fatigue Aller/Immun Denies wheezing Physical exam (Primary Care) Vital Signs: Last Vital Signs Temp 97.7 F 07/21/24 09:52 Pulse 97 07/21/24 09:52 Resp 16 07/21/24 09:52 BP 109/53 L 07/21/24 09:52 Pulse Ox 97 07/21/24 09:52 Oxygen Delivery Method Room Air 07/21/24 09:52 BMI result Body Mass Index 55.8 Tobacco/Smoking Status: Tobacco use Status Tobacco use date assessed 01/17/24 07/21/24 09:53 Patient Tobacco Use Status Former Tobacco user 07/21/24 09:53 e-Cigarette/Vaping Use Never Used 07/21/24 09:53 PHQ-9: PHQ-9 Score PHQ-9: Total score 4 07/21/24 10:11 Thrive Assessment: Date of Thrive Assessment Date Thrive assessed 09/27/23 07/21/24 09:53 Currently or been in a relationship where the following occur: I choose not to answer Const General: well developed; No acute distress Nutritional Appearance: well nourished Orientation/consciousness: patient oriented x3 [facility] Head: Yes normocephalic and Yes atraumatic Eyes General: appearance normal, both eyes and all related structures Pupils: Equal, round and reactive pupils present EOM: EOMs intact bilaterally Resp Effort & Inspection: normal respiratory effort Auscultation: clear to auscultation bilaterally Cardio Rate: regular rate Rhythm: regular rhythm Heart sounds: S1 normal heart sound present, S2 normal heart sound present, no gallops, no murmurs and no rubs Neuro General: patient oriented x3 and gait normal Cranial nerves: Yes Equal, round and reactive pupils present Psych Affect: normal affect Results AMB Hemoglobin A1c AMB Hemoglobin A1c 7.5 % Last Edit by EDUARDA Falcon on 07/21/24 10:02 Results Reviewed Results Reviewed: Laboratory Last Values Hgb A1c (Clinic) 7.5 % (4.0-6.0) H 07/21/24 10:01 Coding Level of Care Code Est Pt Level 4 (57501) Diagnoses Diabetes mellitus type 2, insulin dependent E11.9; Z79.4 Essential hypertension I10 Vertigo R42 Assessment & Plan Assessment & Plan (1) Diabetes mellitus type 2, insulin dependent: Code(s): E11.9 - Type 2 diabetes mellitus without complications; Z79.4 - care home (current) use of insulin Category: Medical Plan: A1c?was?7.5%?in?June?when?he?saw?his?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 Goal?is?less?than?7% He?had?tried?Jardiance?but?did?not?tolerated. Starting?Mounjaro?which?was?also?discussed?with?his?paint tester Continue?your?other?diabetic?medications?as?prescribed (2) Essential hypertension: Code(s): I10 - Essential (primary) hypertension Category: Medical Plan: Blood?pressure?is?a?little?low.??He?has?some?vertigo-like?symptoms?when?bed?but?otherwise?is?hemodynamically?stable Encouraged?good?hydration?in?regular?meals (3) Vertigo: Code(s): R42 - Dizziness and giddiness Category: Medical Plan: As Orders: Orders AMB Hemoglobin A1c Today E11.9 - Type 2 diabetes mellitus without complications, Z79.4 - care home (current) use of insulin Referrals Ophthalmology Referral E11.65 - Type 2 diabetes mellitus with hyperglycemia, 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
[2024-07-21 09:52] VITALS: BP 109/53; PULSE 97; RESP 16; TEMP 36.5; O2SAT 97; BMI 55.8
== END 2024-07-21 10:32 | disposition home or self-care (01) ==
PROVIDERS: PCP Family Medicine; Visit Provider Family Medicine
DX: E11.9 Type 2 diabetes mellitus without complications (principal); Z79.4 Long term (current) use of insulin; I10 Essential (primary) hypertension; R42 Dizziness and giddiness

== ENCOUNTER → 2024-07-21 09:23 | Outpatient (BNVA) | payer OTHER, SELFPAY | PROVIDERS: PCP Family Medicine; Visit Provider Family Medicine | DX: E11.9 Type 2 diabetes mellitus without complications (principal); R42 Dizziness and giddiness; I10 Essential (primary) hypertension | CPT/HCPCS: 83036; 96127; 99212 ==

== ENCOUNTER 2024-07-27 08:40 | Outpatient (REF) | payer OTHER, SELFPAY ==
[2024-07-27 12:08] LABS: Alanine Aminotransferase 16 U/L (0-40); Albumin Level 4.1 g/dL (3.5-5.0); Alkaline Phosphatase 54 U/L (39-117); Anion Gap 14 (12-20); Aspartate Amino Transferase 19 U/L (5-37); Bilirubin Total 0.3 mg/dL (0.0-1.0); Blood Urea Nitrogen 18 mg/dL (9-16); Carbon Dioxide 29 mmol/L (22-29); Chloride 98 mmol/L (96-108); Estimated Glomerular Filt Rate > 60; Glucose Random 198 mg/dL (60-115); Potassium 4.4 mmol/L (3.3-5.1); Sodium 137 mmol/L (135-145); Total Protein 7.2 g/dL (6.5-8.0)
[2024-07-27 12:16] LABS: Creatinine Urine 182.58 mg/dL
== END 2024-07-27 08:41 | disposition home or self-care (01) ==
LOC: HO.WFDLDS 08:40
PROVIDERS: Visit Provider Family Medicine
DX: I10 Essential (primary) hypertension (principal); H10.10 Acute atopic conjunctivitis, unspecified eye; Z79.899 Other long term (current) drug therapy
CPT/HCPCS: 36415; 80053; 82043; 82570; 99212

== ENCOUNTER 2024-07-27 11:41 | Outpatient (AMB) | payer OTHER, SELFPAY ==
--- NOTE | 2024-07-27 11:57 | A.OFFPC_ITS ---
Vital Signs 07/27/24 11:58 Height 5 ft 3 in Weight 310 lb 8 oz BMI 55.0 BP 114/58 L Blood Pressure Location Lt brachial Position Sitting Respiration 16 Pulse 99 Pulse Source Pulse Oximeter Temp 97.7 F Temp Source Oral Pulse Oximetry (%) 97 Oxygen Delivery Method Room Air Intake Visit Reasons: Low bp Intake Note: low bp readings Allergies Iodinated Contrast Media Allergy (Severe, Verified 07/27/24 11:57) Blister Bqvefll-YQD-HqO Reductase Inhibitor [Kwslvzd-Mpz-Ohy Reductase Inhibitor] Allergy (Verified 07/27/24 11:57) Swollen sulfamethoxazole [From Bactrim] Allergy (Verified 07/27/24 11:57) Swollen trimethoprim [From Bactrim] Allergy (Verified 07/27/24 11:57) Swollen oxycodone Adverse Reaction (Verified 07/27/24 11:57) does not tolerate Tobacco use date assessed: 01/17/24 Dental Screening Dental Screen Date: 01/17/24 HPI Low bp HPI Details 59 y/o male presents today with complain ts of low BP. Blood pressure today 114/58, 99p. He is on lisinopril 10mg daily. Has complaints of nasal congestion/allergic conjunctivitis today. [facility] Medical History Obesity due to excess calories Type 2 diabetes mellitus with hyperglycemia, with long-term current use of insulin Chronic pain GEORGE (obstructive sleep apnea) COPD (chronic obstructive pulmonary disease) Psoriasis Hyperlipidemia Essential hypertension Surgical History History of repair of hiatal hernia Family History Father Diabetes Social History Household Members: Spouse Housing: Apartment Alcohol intake: never Patient Tobacco Use Status: Former Tobacco user e-Cigarette/Vaping Use: Never Used Second Hand Smoke Exposure: No service: No Current occupational status: disabled Current occupational exposures/hazards: No Cognitive needs: No Hearing needs: No Vision needs: No Questionnaire Thrive Questionnaire Date Thrive assessed: 07/21/24 I am a: Patient What is your living situation today?: I have a steady place to live Within the past 12 months, did the food you bought not last and you didn't have the money to get more?: Never true Within the past 12 months, did you worry whether your food would run out before you got money to buy more?: Never true Do you have trouble paying for medicines?: No Do you have trouble getting transportation to medical appointments?: No Do you have trouble paying your heating and electricity bill?: No Do you have trouble taking care of your child, family member or friend?: No Do you have trouble with day-to-day activities such as bathing, preparing meals, shopping, managing finances, etc.?: Yes Are you currently unemployed and looking for a job?: No Are you interested in more education?: No Please select the resources that you would like help with: None Currently or been in a relationship where the following occur: I choose not to answer THRIVE Score: 0 INES-7 AMB Questionnaire INES-7 Date INES - 7 assessed: 09/27/23 Source: Developed by Drs. Sharan Restrepo, Yasmine Pineda, Romero Stark and colleagues, with an educational jeannette from [employer]. Review of Systems Const Denies chills, Denies fatigue, Denies fever(s), Denies headache(s) and Denies weakness ENT Details: Eye irritation Denies dizziness, Denies headache(s) and Reports nasal congestion Card Denies dyspnea Resp Denies cough, Denies dyspnea, Denies wheezing and Denies other (shortness of breath) Musc Denies numbness and Denies tingling Neuro Denies dizziness, Denies headache(s), Denies numbness, Denies tingling and Denies weakness Psych Denies anxiety and Denies depression Endo Denies fatigue Aller/Immun Denies wheezing Physical exam (Primary Care) Vital Signs: Last Vital Signs Temp 97.7 F 07/27/24 11:58 Pulse 99 07/27/24 11:58 Resp 16 07/27/24 11:58 BP 114/58 L 07/27/24 11:58 Pulse Ox 97 07/27/24 11:58 Oxygen Delivery Method Room Air 07/27/24 11:58 BMI result Body Mass Index 55.0 Tobacco/Smoking Status: Tobacco use Status Tobacco use date assessed 01/17/24 07/27/24 12:02 Patient Tobacco Use Status Former Tobacco user 07/27/24 12:02 e-Cigarette/Vaping Use Never Used 07/27/24 12:02 Thrive Assessment: Date of Thrive Assessment Date Thrive assessed 07/21/24 07/27/24 12:02 Currently or been in a relationship where the following occur: I choose not to answer Const General: well developed; No acute distress Nutritional Appearance: well nourished Orientation/consciousness: patient oriented x3 HENMT Head: Yes normocephalic and Yes atraumatic Eyes General: appearance normal, both eyes and all related structures Pupils: Equal, round and reactive pupils present EOM: EOMs intact bilaterally Resp Effort & Inspection: normal respiratory effort Auscultation: clear to auscultation bilaterally Cardio Rate: regular rate Rhythm: regular rhythm Heart sounds: S1 normal heart sound present, S2 normal heart sound present, no gallops, no murmurs and no rubs Neuro General: patient oriented x3 and gait normal Cranial nerves: Yes Equal, round and reactive pupils present Psych Affect: normal affect Coding Level of Care Code Est Pt Level 3 (30591) Diagnoses Essential hypertension I10 Allergic conjunctivitis H10.10 Assessment & Plan Assessment & Plan (1) Essential hypertension: Code(s): I10 - Essential (primary) hypertension Category: Medical Plan: Blood?pressure?is?running?on?the?lower?side Will?have?him?increase?his?lisinopril?from?10?mg?daily?to?5?mg?daily. (2) Allergic conjunctivitis: Code(s): H10.10 - Acute atopic conjunctivitis, unspecified eye Category: Medical Plan: Trial Olopatadine and try switching nasal?steroid?to?telemedicine Medications: New mometasone 50 mcg/actuation (Allergy Nasal (mometasone)) administer into each nostril 2 sprays intranasal DAILY 30 days PRN 17 grams 2RF nasal congestion olopatadine 0.7% 1 drp ophthalmic (eye) DAILY 30 days PRN 5 mL 1RF itching Changed From lisinopril 10 mg PO DAILY 90 days 90 tabs 3RF To lisinopril 5 mg PO DAILY 90 days 90 tabs 3RF
[2024-07-27 11:58] VITALS: BP 114/58; PULSE 99; RESP 16; TEMP 36.5; O2SAT 97; BMI 55.0
== END 2024-07-27 16:46 | disposition home or self-care (01) ==
PROVIDERS: PCP Family Medicine; Visit Provider Family Medicine
DX: I10 Essential (primary) hypertension (principal); H10.10 Acute atopic conjunctivitis, unspecified eye

== ENCOUNTER 2024-08-21 11:08 | Outpatient (AMB) | payer OTHER, SELFPAY ==
[2024-08-21 11:10] VITALS: BP 122/64; PULSE 104; O2SAT 98; BMI 56.1
--- NOTE | 2024-08-21 11:10 | MHC.OFFVIS ---
Vital Signs 08/21/24 11:10 Height 5 ft 3 in Weight 317 lb BMI 56.1 BP 122/64 Blood Pressure Location Rt brachial Position Sitting Pulse 104 H Pulse Source Doppler Pulse Oximetry (%) 98 Oxygen Delivery Method Room Air Intake Visit Reasons: COPD Allergies Iodinated Contrast Media Allergy (Severe, Verified 08/21/24 11:15) Blister Cfkcrld-PHY-BbO Reductase Inhibitor [Ijwdiph-Ovt-Vez Reductase Inhibitor] Allergy (Verified 08/21/24 11:15) Swollen sulfamethoxazole [From Bactrim] Allergy (Verified 08/21/24 11:15) Swollen trimethoprim [From Bactrim] Allergy (Verified 08/21/24 11:15) Swollen oxycodone Adverse Reaction (Verified 08/21/24 11:15) does not tolerate HPI HPI COPD: Details: 59-year-old gentleman former 30+ pack-year smoker, quit 2004 prior with underlying history of morbid obesity, GEORGE, environmental allergies, and COPD.? He uses brand Advair 500 and Spiriva Respimat with good control of his symptoms.? He denies any recent exacerbations. Patient did not tolerate CPAP. His allergic rhinitis symptoms are well controlled on Flonase. [facility] Medical History (Updated 08/21/24 @ 09:20 by Shahana Molina PA-C) Essential hypertension Hyperlipidemia Type 2 diabetes mellitus with hyperglycemia, with long-term current use of insulin Asthma-COPD overlap syndrome COPD (chronic obstructive pulmonary disease) GEORGE (obstructive sleep apnea) Environmental allergies Morbid obesity Chronic pain Psoriasis Surgical History History of repair of hiatal hernia Family History Father Diabetes Social History Household Members: Spouse Housing: Apartment Alcohol intake: never Patient Tobacco Use Status: Former Tobacco user e-Cigarette/Vaping Use: Never Used Second Hand Smoke Exposure: No service: No Current occupational status: disabled Current occupational exposures/hazards: No Cognitive needs: No Hearing needs: No Vision needs: No Review of Systems Const Denies daytime sleepiness, Denies excessive sweating, Denies fatigue, Denies fever(s), Denies lethargy, Denies malaise, Denies night sweats, Denies snoring and Denies weight loss Eyes Denies blurry vision and Denies itchy eyes ENT Denies nasal congestion, Denies post nasal drip, Denies sinus pain, Denies sinus pressure and Denies other ( Thrush) Card Denies chest pain, Denies pedal edema, Denies dyspnea, Denies orthopnea and Denies paroxysmal nocturnal dyspnea Resp Denies cough, Denies hemoptysis, Denies excessive phlegm production, Denies dyspnea, Denies snoring and Denies wheezing GI Denies abdominal pain and Denies heartburn Musc Denies myalgias, Denies arthralgias and Denies joint swelling Skin/Breast Denies rash Neuro Denies memory loss and Denies seizure-like activity Psych Denies abnormal sleep pattern, Denies anxiety and Denies memory loss Endo Denies excessive sweating, Denies fatigue and Denies heat intolerance Varun/Lymph Denies easy bruising Aller/Immun Denies itchy eyes, Denies seasonal rhinorrhea and Denies wheezing Physical Exam Vital Signs: Last Vital Signs Pulse 104 H 08/21/24 11:10 BP 122/64 08/21/24 11:10 Pulse Ox 98 08/21/24 11:10 Oxygen Delivery Method Room Air 08/21/24 11:10 BMI result Body Mass Index 56.1 Const General: no acute distress and alert Nutritional Appearance: obese Orientation/consciousness: Other orientation findings ( oriented) HEENT Head: Yes atraumatic Eyes General: appearance normal, both eyes and all related structures Sclerae: sclerae normal EOM: EOMs intact bilaterally Neck Neck: Yes supple Lymphatic: no lymphadenopathy noted Resp Effort & Inspection: normal respiratory effort and no use of accessory muscles Auscultation: clear to auscultation bilaterally Cardio Rate: regular rate Rhythm: regular rhythm Heart sounds: no gallops, no murmurs and no rubs Skin General skin exam: other ( warm) Extrem General: No clubbing, No cyanosis and No edema Assessment & Plan Assessment & Plan (1) Asthma-COPD overlap syndrome: Code(s): J44.9 - Chronic obstructive pulmonary disease, unspecified Category: Medical Plan: Well controlled on Breo and Advair/Spiriva and albuterol MDI. Continue current regimen. (2) Restrictive lung disease secondary to obesity: Code(s): J98.4 - Other disorders of lung; E66.9 - Obesity, unspecified Category: Medical Plan: Patient continues to work on losing weight. (3) Environmental allergies: Code(s): Z91.09 - Other allergy status, other than to drugs and biological substances Category: Medical Plan: Well controlled on as needed Flonase. Continue current regimen. Coding Level of Care Code Est Pt Level 4 (29317) Diagnoses Asthma-COPD overlap syndrome J44.9 Restrictive lung disease secondary to obesity J98.4; E66.9 Environmental allergies Z91.09
--- OUTSIDE RECORDS SUMMARY | 2024-08-21 11:20 | XMS_ITS | Continuity of Care Document ---
Author Organization [facility] [address] [place] [address] Phone [phone] Care Team Providers Care Weighmaster Name Role Phone Paresh Trivedi MD Care Team Information Mentally Impaired Teacher [phone] Problems Active Problems Provider Date Essential hypertension Corky Yan M.D. O nset: 09/28/2022 Chronic obstructive lung disease Corky odom M.D. Onset: 09/28/2022 Hyperlipidemia Corky Yan M.D. Onset: 0 09/28/2022 Obesity Corky Yan M.D. Onset: 0 09/28/2022 Obstructive sleep apnea syndrome Corky odom M.D. Onset: 09/28/2022 Psoriasis Corky Yan M.D. Onset: 0 09/28/2022 Type 2 diabetes mellitus Corky Yan M.D. Onset: 09/28/2022 Social History Type Date Description Comments Sex Unknown ETOH Use Denies alcohol use Tobacco Use Start: Unknown End: Unknown Patient is a former smoker Smoking Status Reviewed: 02/14/23 Patient is a former smoker Allergies and adverse reactions Active Allergies Criticality Reaction Severity Comments Date Statins Unable to assess criticality 09/28/2022 Sulfamethoxazole Unable to assess criticality 09/28/2022 Trimethoprim Unable to assess criticality 09/28/2022 Oxycodone Unable to assess criticality 09/28/2022 Medications Active Medications SIG Qnty Indications Order ing Provider Date Mounjaro2.5mg/0.5M L Solution Auto-Inject inject 0.5 milliliters weekly 2ml Corky Yan M.D. 07/24/2024 [id number] Tablets 1 by mouth every day 90tabs Corky Yan M.D. 06/24/2024 Freestyle [place] LiteW/Device Kit as directed dx: e11.9 1units Corky Yan M.D. 07/31/2023 Lantus [id number]/ML Solution Pen-Inject Inject 20 Units Subcutaneously In The Morning DX: E11.9 30ml E11Neli Yan M.D. 12/13/2022 Freestyle Vikas 3/Sensor/Glucose Monitoring [id number] Misc as directed 3units Corky Yan M.D. 09/28/2022 Freestyle Lite TestStrips use 1 test strip four times a day check glucose dx: e11.9 300units E11.9 Corky Yan M.D. [id number] Tablets 1 by mouth every day Paresh Trivedi MD [id number] Tablets 1 by mouth every day 90tabs Paresh Trivedi MD Metformin [id number] Tablets 1 tab by mouth twice a day 180tabs Corky Yan M.D. BD Pen Needle/Mirta 2ND Gen/32G X 5/32 32G X 4 mm Misc Use as Directed Twice Daily Dx: E11.9 300units E11.9 Corky Yan M.D. Spiriva Respimat2.5mcg/Act Aerosol Inhale 2 Puffs By Mouth Daily Louis Bond Cetirizine [id number] Tablets Take 1 Tablet By Mouth Every Day as Needed Paresh Trivedi MD Vital Signs Date Vital Result Comment 06/24/2024 10:37am Height 65 inches 5'5 Weight 309.50 lb BMI (Body Mass Index) 51.5 kg/m2 Results Test Acquired Date Facility Test Result H/L Range Note Comp. Metabolic Panel (14) 07/02/2024 [facility] Glucose 135 mg/dL High 70-99 BUN 17 mg/dL 8-27 Creatinine 0.89 mg/dL 0.76-1.27 eGFR 97 mL/min/1.73 >59 BUN/Creatinine Ratio 19 10-24 Sodium 139 mmol/L 134-144 Potassium 5.1 mmol/L 3.5-5.2 Chloride 96 mmol/L 96-106 Calcium 10.0 mg/dL 8.6-10.2 Protein, Total 7.0 g/dL 6.0-8.5 Albumin 4.3 g/dL 3.9-4.9 Globulin, Total 2.7 g/dL 1.5-4.5 Bilirubin, Total 0.3 mg/dL 0.0-1 .2 Alkaline Phosphatase 61 IU/L 44-121 Ast (Sgot) 19 IU/L 0-40 Alt (SGPT) 16 IU/L 0-44 Carbon Dioxide, Total 23 mmol/L 20-29 Lipid Panel 07/02/2024 [facility] Cholesterol, Total 168 mg/dL 100-199 Triglycerides 118 mg/dL 0-149 HDL Cholesterol 55 mg/dL >39 VLDL Cholestero l Carlos Alberto 21 mg/dL 5-40 LDL Chol Calc (Nih) 92 mg/dL 0-99 LDL Calc Comment: TNP Urinalysis, Complete 07/02/2024 [facility] Specific [place] 1.021 1.005-1.030 pH 6.0 5.0-7.5 Urine-Color Yellow Yellow Appearance Clear Clear WBC Esterase Negative Negative Protein Negative Negative/Tr edith Glucose Negative Negative Ketones Negative Negative Occult Blood Negative Negative Bilirubin Negative Negative Urobilinogen,Se mi -Qn 0.2 mg/dL 0.2-1.0 Nitrite, Urine Negative Negative Microscopic Examination See Comment: 1 Microscopic Examination See below: 2 WBC None seen /hpf 0 - 5 RBC None seen /hpf 0 - 2 Epithelial Cell s (non renal) None seen /hpf 0 - 10 Epithelial Cell s (renal) TNP Casts None seen /lpf None seen Cast Type TNP Crystals TNP Crystal Type TNP Mucus Threads TNP Bacteria None seen None seen/Few Yeast TNP Trichomonas TNP Comment TNP CBC With Differential/P latelet 07/02/2024 [facility] WBC 7.9 x10E3/uL 3.4-10.8 RBC 5.31 x10E6/uL 4.14-5.80 Hemoglobin 14.2 g/dL 13.0-17.7 Hematocrit 46.1 % 37.5-51.0 MCV 87 fL 79-97 MCH 26.7 pg 26.6-33.0 MCHC 30.8 g/dL Low 31.5-35.7 RDW 13.6 % 11.6-15.4 Platelets 204 x10E3/uL 150-450 Neutrophils 56 % Not Estab. Lymphs 31 % Not Estab. Monocytes 6 % Not Estab. Eos 5 % Not Estab. Basos 1 % Not Estab. Immature Cells TNP Neutrophils (Absolute) 4.6 x10E3/uL 1.4-7.0 Lymphs (Absolute) 2.4 x10E3/uL 0 .7-3.1 Monocytes(Absol ut e) 0.5 x10E3/uL 0.1-0.9 Eos (Absolute) 0.4 x10E3/uL 0.0- 0.4 Baso (Absolute) 0.0 x10E3/uL 0.0 -0.2 Immature Granulocytes 1 % Not Estab. Immature Grans (Abs) 0.0 x10E3/uL 0.0-0.1 NRBC TNP Hematology Comments: TNP Laboratory test finding 07/02/2024 [facility] Prostate-Specific Ag 0.6 ng/mL 0.0-4.0 3 TSH Rfx on Abnormal to Free T4 2.160 uIU/mL 0.450-4.500 Vitamin D, 25-Hydroxy 30.9 ng/mL 30.0-100.0 4 Laboratory test finding 06/24/2024 Inhouse Glucose Fingerstick 176 Hemoglobin A1c 7.5% Laboratory test finding 03/12/2024 Inhouse Glucose Fingerstick 158 Hemoglobin A1c 6.9% Laboratory test finding 11/28/2023 Inhouse Glucose Fingerstick 186 Hemoglobin A1c 7.2% Laboratory test finding 07/31/2023 Inhouse Glucose Fingerstick 147 Hemoglobin A1c 7.1% Laboratory test finding 04/24/2023 Inhouse Glucose Fingerstick 104 Hemoglobin A1c 6.4 Laboratory test finding 02/14/2023 Inhouse Glucose Fingerstick 145 Hemoglobin A1c 6.6% Laboratory test finding 12/13/2022 Inhouse Glucose Fingerstick 155 Hemoglobin A1c 6.4% Laboratory test finding 10/29/2022 Inhouse Glucose Fingerstick 154 Hemoglobin A1c 6.4% Laboratory test finding 09/28/2022 Inhouse Glucose Fingerstick 84 1 Microscopic follows if indicated. 2 Microscopic was madelyn cated and was performed. 3 Triny ECLIA methodol ogy. According to the [place] [employer], Serum PSA should decrease and remain at undetectable levels after radical prostatectomy. The AUA defines biochemical recurrence as an initial PSA value 0.2 ng/mL or greater followed by a subsequent confirmatory PSA value 0.2 ng/mL or greater. Values obtained with different assay methods or kits cannot be used interchangeably. Results cannot be interpreted as absolute evidence of the presence or absence of malignant disease. 4 Vitamin D deficiency has been defined by the [place] [employer] and an Endocrine Society practice guideline as a level of serum 25-OH vitamin D less than 20 ng/mL (1,2). The Endocrine Society went on to further define vitamin D insufficiency as a level between 21 and 29 ng/mL (2). 1. IOM ([place] [employer]). 2010. Dietary reference intakes for calcium and D. [place]: The National Academies Press. 2. Monica MF, Glenna SOLOMON, Thomas GALLARDO, et al. Evaluation, treatment, and prevention of vitamin D deficiency: an Endocrine Society clinical practice guideline. JCEM. 2010; 96(7):1911-30. Medical Devices Description No Information Available Encounters Type Date Location Provider Dx Diagnosis Office Visit 06/24/2024 10:30a Main Office Corky Yan M.D. E11.9 Type 2 diabetes mellitus without complications Assessments Date Code Description Provider 06/24/2024 E11.9 Type 2 diabetes mellitus without complications Corky Yan M.D. Plan of Treatment Future Appointment(s):* 12/24/2024 9:15 am - Corky Yan M.D. at Main Office 06/24/2024 - Corky Yan M.D.* E11.9 Type 2 diabetes mellitus without complications * Functional Status Description No Information Available Mental Status Description No Information Available Referrals Description No Information Available
== END 2024-08-21 11:32 | disposition home or self-care (01) ==
PROVIDERS: PCP Family Medicine; Visit Provider Internal Medicine Pulmonary Disease
DX: J44.9 Chronic obstructive pulmonary disease, unspecified (principal); J98.4 Other disorders of lung; E66.9 Obesity, unspecified; Z91.09 Other allergy status, other than to drugs and biological substances
CPT/HCPCS: 99214

== ENCOUNTER → 2024-08-21 11:08 | Outpatient (BNVA) | payer OTHER, SELFPAY | PROVIDERS: PCP Family Medicine; Visit Provider Internal Medicine Pulmonary Disease | DX: J44.9 Chronic obstructive pulmonary disease, unspecified (principal); J98.4 Other disorders of lung; Z91.09 Other allergy status, other than to drugs and biological substances; E66.9 Obesity, unspecified; Z68.43 Body mass index [BMI] 50.0-59.9, adult | CPT/HCPCS: 99212 ==

== ENCOUNTER 2024-11-23 09:06 | Outpatient (AMB) | payer OTHER, SELFPAY ==
--- NOTE | 2024-11-23 09:37 | MHC.PC.OV ---
Vital Signs 11/23/24 09:54 Height 5 ft 3 in Weight 314 lb 8 oz BMI 55.7 BP 106/60 Blood Pressure Location Rt brachial Position Sitting Respiration 12 Pulse 99 Pulse Source Pulse Oximeter Temp 98.1 F Temp Source Oral Intake Visit Reasons: f/u diabetes Intake Note: patient is scheduled for follow up dm Merchandise Carrier Required: No Allergies Iodinated Contrast Media Allergy (Severe, Verified 11/23/24 09:53) Blister Owfsevi-WJR-HnX Reductase Inhibitor [Rhqbpbb-Rmj-Ktm Reductase Inhibitor] Allergy (Verified 11/23/24 09:53) Swollen sulfamethoxazole [From Bactrim] Allergy (Verified 11/23/24 09:53) Swollen trimethoprim [From Bactrim] Allergy (Verified 11/23/24 09:53) Swollen oxycodone Adverse Reaction (Verified 11/23/24 09:53) does not tolerate Medication List - Last Reconciled 11/23/24 by Paresh Trivedi MD Advair Diskus 500-50 mcg/dose (fluticasone propion-salmeterol) 1 ea PO BID 30 days NS albuterol sulfate 90 mcg/actuation 2 puffs inhalation Q4-6H PRN 30 days albuterol sulfate 2.5 mg (3 mL) inhalation Q4H PRN betamethasone dipropionate 0.05% appl topical blood sugar diagnostic (FreeStyle Lite Strips) As directed four times a day docusate sodium 200 mg (2 x 100 mg) PO BEDTIME ezetimibe 10 mg PO DAILY fluticasone propionate 50 mcg/actuation 1 spray intranasal BID 30 days hydrocortisone 2.5% 1 appl GA BEDTIME PRN insulin glargine (Lantus Solostar U-100 Insulin) 25 units subcut QAM insulin syringe-needle U-100 As directed lactulose 20 grams (30 mL) PO BID PRN 2 days lancets (FreeStyle Lancets) As directed four time a day lisinopril 5 mg PO DAILY 90 days metformin 1,000 mg PO BID methylcellulose (laxative) (Fiber Therapy (methylcellulose)) 625 mg (1.25 x 500 mg) PO TID miscellaneous medical supply Motorized Electric Scooter. Daily As directed, 999 days. miscellaneous medical supply diabetic shoes miscellaneous medical supply Donut Cushion. Daily As directed, 999 days mometasone 50 mcg/actuation (Allergy Nasal (mometasone)) 2 sprays intranasal DAILY PRN 30 days naproxen sodium (Aleve) 220 mg PO BID PRN olopatadine 0.7% 1 drp ophthalmic (eye) DAILY PRN 30 days pen needle, diabetic (BD Mirta 2nd Gen Pen Needle) As directed twice a day polyethylene glycol 3350 (Gavilax) 17 grams PO DAILY sildenafil 100 mg PO DAILY PRN 30 days tiotropium bromide 2.5 mcg/actuation (Spiriva Respimat) 2 puffs PO DAILY tirzepatide (Mounjaro) 2.5 mg (0.5 mL) subcut QWEEK 28 days ustekinumab (Stelara) 90 mg subcut Q12W Tobacco use date assessed: 01/17/24 Dental Screening Dental Screen Date: 01/17/24 HPI f/u diabetes HPI Details 59 y/o male presents to f/u diabetes. Prior A1c 07/21/24 7.5%. A1c today 11/23/24 7.8%. He is on metformin 1000mg b.i.d, insulin glargine 25 units, Mounjaro 2.5mg. He notes he has only been taking mounjaro and Lantus. Blood pressure today 106/60, 99p. He is on lisinopril 5mg daily. [facility] Medical History (Updated 08/21/24 @ 09:20 by Shahana Molina PA-C) Essential hypertension Hyperlipidemia Type 2 diabetes mellitus with hyperglycemia, with long-term current use of insulin Asthma-COPD overlap syndrome COPD (chronic obstructive pulmonary disease) GEORGE (obstructive sleep apnea) Environmental allergies Morbid obesity Chronic pain Psoriasis Surgical History History of repair of hiatal hernia Family History Father Diabetes Social History Household Members: Spouse Housing: Apartment Alcohol intake: never Patient Tobacco Use Status: Former Tobacco user e-Cigarette/Vaping Use: Never Used Second Hand Smoke Exposure: No service: No Current occupational status: disabled Current occupational exposures/hazards: No Cognitive needs: No Hearing needs: No Vision needs: No Questionnaire Thrive Questionnaire Date Thrive assessed: 07/21/24 I am a: Patient What is your living situation today?: I choose not to answer this question Within the past 12 months, did the food you bought not last and you didn't have the money to get more?: I choose not to answer this question Within the past 12 months, did you worry whether your food would run out before you got money to buy more?: I choose not to answer this question Do you have trouble paying for medicines?: I choose not to answer this question Do you have trouble getting transportation to medical appointments?: I choose not to answer this question Do you have trouble paying your heating and electricity bill?: I choose not to answer this question Do you have trouble taking care of your child, family member or friend?: I choose not to answer this question Do you have trouble with day-to-day activities such as bathing, preparing meals, shopping, managing finances, etc.?: I choose not to answer this question Are you currently unemployed and looking for a job?: I choose not to answer this question Are you interested in more education?: I choose not to answer this question Please select the resources that you would like help with: None Currently or been in a relationship where the following occur: I choose not to answer THRIVE Score: 0 AUDIT C Alcohol Use Questionnaire (AUDIT-C) 1. How often do you have a drink containing alcohol?: Never Total Score: 0 INES-7 AMB Questionnaire INES-7 Date INES - 7 assessed: 09/27/23 Feeling nervous, anxious, or on edge: 0 = Not at all Not being able to stop or control worryin = Not at all Worrying too much about different things: 0 = Not at all Trouble relaxin = Not at all Being so restless that it is hard to sit still: 0 = Not at all Becoming easily annoyed or irritable: 0 = Not at all Feeling afraid as if something awful might happen: 0 = Not at all Total INES-7 score (0-4 normal; 5-9 mild; 10-14 moderate; 15-21 severe): 0 Source: Developed by Drs. Sharan Restrepo, Yasmine Pineda, Romero Stark and colleagues, with an educational jeannette from [employer]. Review of Systems Const Denies chills, Denies fatigue, Denies fever(s), Denies headache(s) and Denies weakness ENT Denies dizziness and Denies headache(s) Card Denies dyspnea Resp Denies cough, Denies dyspnea, Denies wheezing and Denies other (shortness of breath) Musc Denies numbness and Denies tingling Neuro Denies dizziness, Denies headache(s), Denies numbness, Denies tingling and Denies weakness Psych Denies anxiety and Denies depression Endo Denies fatigue Aller/Immun Denies wheezing Physical exam (Primary Care) Vital Signs: Last Vital Signs Temp 98.1 F 11/23/24 09:54 Pulse 99 11/23/24 09:54 Resp 12 11/23/24 09:54 BP 106/60 11/23/24 09:54 BMI result Body Mass Index 55.7 Tobacco/Smoking Status: Tobacco use Status Tobacco use date assessed 01/17/24 11/23/24 09:38 Patient Tobacco Use Status Former Tobacco user 11/23/24 09:38 e-Cigarette/Vaping Use Never Used 11/23/24 09:38 Thrive Assessment: Date of Thrive Assessment Date Thrive assessed 07/21/24 11/23/24 09:38 Currently or been in a relationship where the following occur: I choose not to answer Const General: well developed; No acute distress Nutritional Appearance: well nourished and obese morbidly obese Orientation/consciousness: patient oriented x3 HENMT Head: Yes normocephalic and Yes atraumatic Eyes General: appearance normal, both eyes and all related structures Pupils: Equal, round and reactive pupils present EOM: EOMs intact bilaterally Resp Effort & Inspection: normal respiratory effort Auscultation: clear to auscultation bilaterally Cardio Rate: regular rate Rhythm: regular rhythm Heart sounds: S1 normal heart sound present, S2 normal heart sound present, no gallops, no murmurs and no rubs Neuro General: patient oriented x3 and gait normal Cranial nerves: Yes Equal, round and reactive pupils present Psych Affect: normal affect Coding Level of Care Code Est Pt Level 3 (24192) Diagnoses Diabetes mellitus type 2, insulin dependent E11.9; Z79.4 Essential hypertension I10 Assessment & Plan Assessment & Plan (1) Diabetes mellitus type 2, insulin dependent: Code(s): E11.9 - Type 2 diabetes mellitus without complications; Z79.4 - MCFP (current) use of insulin Category: Medical Plan: A1c?today?has?increased?to?7.8%?& goal?is?less?than?7% He?has?not?started?Mounjaro He?is?taking?metformin?as?prescribed?and?taking?Lantus?20?units?daily. He?will?increase?Lantus?to?25?units?daily?and?continue?metformin?as?prescribed. If?he?starts?Mounjaro?he?can?decrease?Lantus?to?20?units?daily. Follow-up?in?1?month (2) Essential hypertension: Code(s): I10 - Essential (primary) hypertension Category: Medical Plan: Blood?pressure?is?controlled.??Goal?is?less?than?140/90 Continue?current?medication
[2024-11-23 09:54] VITALS: BP 106/60; PULSE 99; RESP 12; TEMP 36.7; BMI 55.7
== END 2024-11-23 10:32 | disposition home or self-care (01) ==
LOC: HO.HMCFM 09:07
PROVIDERS: PCP Family Medicine; Visit Provider Family Medicine
DX: E11.9 Type 2 diabetes mellitus without complications (principal); Z79.4 Long term (current) use of insulin; I10 Essential (primary) hypertension

== ENCOUNTER → 2024-11-23 09:06 | Outpatient (BNVA) | payer OTHER, SELFPAY | PROVIDERS: PCP Family Medicine; Visit Provider Family Medicine | DX: E11.9 Type 2 diabetes mellitus without complications (principal); I10 Essential (primary) hypertension; Z79.4 Long term (current) use of insulin | CPT/HCPCS: 83036; 99212 ==

== ENCOUNTER 2024-12-28 07:31 | Outpatient (REF) | payer OTHER, SELFPAY ==
--- OUTSIDE RECORDS SUMMARY | 2024-12-28 07:34 | XMS_ITS | Continuity of Care Document ---
Author Organization [facility] Address [address] [place] [address] Phone [phone] Care Team Providers Care Electrical And Instrumentation Manager Name Role Phone Paresh Trivedi MD Care Team Information Night Cleaner [phone] Problems Active Problems Provider Date Essential hypertension [...] milliliters weekly 2ml Corky Yan M.D. 07/24/2024 [id number] Tablets 1 by mouth every day 90tabs Corky Yan M.D. 06/24/2024 Freestyle Garrett LiteW/Device Kit as directed dx: e11.9 1units Corky Yan M.D. 07/31/2023 Lantus [id number] Solution Pen-Inject Inject 20 Units Subcutaneously In The Morning DX: E11.9 30ml E11Neli Yan M.D. 12/13/2022 Freestyle Vikas 3/Sensor/Glucose Monitoring [id number] Misc as directed 3units Corky Yan M.D. 09/28/2022 Freestyle Lite TestStrips use 1 test strip four times a day check glucose dx: e11.9 300units E11.9 Corky Yan M.D. [id number] Tablets 1 by mouth every day Paresh Trivedi MD [id number] Tablets 1 by mouth every day 90tabs Paresh Trivedi MD Metformin [id number] Tablets 1 tab by mouth twice a day 180tabs Corky Yan M.D. BD Pen Needle/Mirta 2ND Gen/32G X 5/32 32G X 4 mm Misc Use as Directed Twice Daily Dx: E11.9 300units E11.9 Corky Yan M.D. Spiriva Respimat2.5mcg/Act Aerosol Inhale 2 Puffs By Mouth Daily Louis Bond Cetirizine [id number] Tablets Take 1 Tablet By Mouth Every Day as Needed Paresh Trivedi MD Vital Signs Date Vital Result Comment 06/24/2024 10:37am Height 65 inches 5'5 Weight 309.50 lb BMI (Body Mass Index) 51.5 kg/m2 Results Test Acquired Date Facility Test Result H/L Range Note Lipid Panel 07/02/2024 [facility] Cholesterol, Total 168 mg/dL 100-199 Triglycerides 118 mg/dL 0-149 HDL Cholesterol 55 mg/dL >39 VLDL Cholestero l Carlos Alberto 21 mg/dL 5-40 LDL Chol Calc ([facility]) 92 mg/dL 0-99 LDL Calc Comment: TNP Urinalysis, Complete 07/02/2024 [facility] Specific [place] 1.021 1.005-1.030 pH 6.0 5.0-7.5 Urine-Color Yellow [...] TNP Trichomonas TNP Comment TNP CBC With Differential/Pl atelet 07/02/2024 [facility] WBC 7.9 x10E3/uL 3.4-10.8 RBC [...] 4.6 x10E3/uL 1.4-7.0 Lymphs (Absolute) 2.4 x10E3/uL 0.7-3.1 Monocytes(Absol ut e) 0.5 x10E3/uL 0.1-0.9 Eos (Absolute) 0.4 x10E3/uL 0.0-0.4 Baso (Absolute) 0.0 x10E3/uL 0.0-0.2 Immature Granulocytes 1 % Not Estab. Immature Grans (Abs) 0.0 x10E3/uL 0.0-0.1 NRBC TNP Hematology Comments: TNP Prostate-Specif ic Ag 07/02/2024 [facility] Prostate-Specific Ag 0.6 ng/mL 0.0-4.0 3 TSH Rfx on Abnormal to Free T4 07/02/2024 [facility] TSH Rfx on Abnormal to Free T4 2.160 uIU/mL 0.450-4.500 Vitamin D, 25-Hydroxy 07/02/2024 [facility] Vitamin D, 25-Hydroxy 30.9 ng/mL 30.0-100.0 4 Comp. Metabolic Panel (14) 07/02/2024 [facility] Glucose [...] 0-44 Carbon Dioxide, Total 23 mmol/L 20-29 Glucose Fingerstick 06/24/2024 Inhouse Glucose Fingerstick 176 Hemoglobin A1c 06/24/2024 Inhouse Hemoglobin A1c 7.5% Glucose Fingerstick 03/12/2024 Inhouse Glucose Fingerstick 158 Hemoglobin A1c 03/12/2024 Inhouse Hemoglobin A1c 6.9% Hemoglobin A1c 11/28/2023 Inhouse Hemoglobin A1c 7.2% Glucose Fingerstick 11/28/2023 Inhouse Glucose Fingerstick 186 Glucose Fingerstick 07/31/2023 Inhouse Glucose Fingerstick 147 Hemoglobin A1c 07/31/2023 Inhouse Hemoglobin A1c 7.1% Glucose Fingerstick 04/24/2023 Inhouse Glucose Fingerstick 104 Hemoglobin A1c 04/24/2023 Inhouse Hemoglobin A1c 6.4 Glucose Fingerstick 02/14/2023 Inhouse Glucose Fingerstick 145 Hemoglobin A1c 02/14/2023 Inhouse Hemoglobin A1c 6.6% Glucose Fingerstick 12/13/2022 Inhouse Glucose Fingerstick 155 Hemoglobin A1c 12/13/2022 Inhouse Hemoglobin A1c 6.4% Glucose Fingerstick 10/29/2022 Inhouse Glucose Fingerstick 154 Hemoglobin A1c 10/29/2022 Inhouse Hemoglobin A1c 6.4% Glucose Fingerstick 09/28/2022 Inhouse Glucose Fingerstick 84 1 Microscopic follows if indicated. 2 Microscopic was madelyn cated and was performed. 3 Triny ECLIA methodol ogy. According to the [place] [employer], Serum PSA should decrease and [...] D deficiency has been defined by the [place] of [employer] and an Endocrine Society practice guideline as a level of serum 25-OH vitamin D less than 20 ng/mL (1,2). The Endocrine Society went on to further define vitamin D insufficiency as a level between 21 and 29 ng/mL (2). 1. IOM ([place] of [employer]). 2010. Dietary reference intakes for calcium and D. [place]: The National Academies Press. 2. Monica MF, Glenna [place], Thomas GALLARDO, et al. Evaluation, treatment, and [...] Yan M.D. Plan of Treatment Future Appointment(s):* 01/18/2025 10:45 am - Corky Yan M.D. at Main Office 06/24/2024 - Corky Yan M.D.* E11.9 Type 2 diabetes mellitus without complications * Functional Status Description No Information Available Mental Status Description No Information Available Referrals Description No Information Available
[2024-12-28 11:12] LABS: Appearance Urine Clear; Color Urine Yellow; Glucose Urine UA Negative (Negative); Leukocyte Esterase Urine Negative (Negative); Nitrite Urine Negative (Negative); PH 5.5 (5.0-9.0); Urine Blood Negative (Negative); Urine Ketones Negative (Negative); Urine Protein Negative (Neg-Trace)
[2024-12-28 11:30] LABS: Hemoglobin 14.3 g/dl (14.0-18.0); Red Cell Distribution Width 13.7 % (11.0-16.0); SCAN SMEAR FLAG 1
[2024-12-28 11:32] LABS: Basophils Percent Auto 0.6 % (0-2); Eosinophils Absolute Auto 0.4 X10*3/uL (0.0-0.4); Eosinophils Percent Auto 5.3 % (0-4); Hematocrit 44.3 % (42.0-52.0); Imm Gran Abs Auto 0.04 X10*3/uL (0.00-0.03); Imm Gran Pct Auto 0.6 % (0.0-0.4); Lymphocytes Absolute Auto 2.1 X10*3/uL (1.2-4.9); Lymphocytes Percent Auto 29.5 % (20-40); MANUAL DIFF FLAG SCAN; Mean Corpuscular HGB Conc 32.3 g/dl (31.0-36.0); Mean Corpuscular Hemoglobin 27.8 pg (27.0-33.0); Mean Platelet Volume 12.5 fL (9.4-12.4); Monocytes Absolute Auto 0.5 X10*3/uL (0.1-1.2); Monocytes Percent Auto 6.4 % (2-11); Neutrophils Absolute Auto 4.1 x10*3/uL (2.0-8.3); Neutrophils Percent Auto 57.6 % (45-73); PLT CLUMP 1; Red Blood Count 5.15 X10*6/uL (4.60-5.80)
[2024-12-28 11:49] LABS: Prostate Specific Antigen Scr 0.59 ng/mL (<0.05-4.0)
[2024-12-28 11:53] LABS: PLT ABN DIST 1
[2024-12-28 11:57] LABS: Alanine Aminotransferase 17 U/L (0-40); Albumin Level 3.9 g/dL (3.5-5.0); Alkaline Phosphatase 52 U/L (39-117); Anion Gap 17 (12-20); Aspartate Amino Transferase 31 U/L (5-37); Bilirubin Total 0.4 mg/dL (0.0-1.0); Blood Urea Nitrogen 16 mg/dL (9-16); Calcium 9.5 mg/dL (8.4-10.2); Carbon Dioxide 25 mmol/L (22-29); Chloride 103 mmol/L (96-108); Cholesterol 168 mg/dL (<200); Estimated Glomerular Filt Rate > 60; Glucose Fasting 134 mg/dL (60-99); HDL Cholesterol 47 mg/dL (>40); LDL Cholesterol Calculated 103 mg/dL (<100); Potassium 5.1 mmol/L (3.3-5.1); Sodium 140 mmol/L (135-145); TSH reflex Free T4 1.14 uIU/mL (0.32-4.0); Total Protein 7.3 g/dL (6.5-8.0); Triglycerides 92 mg/dL (<150)
[2024-12-28 12:13] LABS: Creatinine Urine 112.79 mg/dL
[2024-12-28 14:12] LABS: Platelet Count 170 X10*3/uL (160-400)
[2024-12-28 14:13] LABS: SLIDE REVIEW VERIFIED
== END 2024-12-28 07:32 | disposition home or self-care (01) ==
LOC: HO.WFDLDS 07:31
PROVIDERS: Visit Provider Family Medicine
DX: Z00.00 Encounter for general adult medical examination without abnormal findings (principal); I10 Essential (primary) hypertension; Z12.5 Encounter for screening for malignant neoplasm of prostate
CPT/HCPCS: 36415; 80053; 80061; 81003; 82043; 82570; 84153; 84443; 85025

== ENCOUNTER 2025-01-07 09:37 | Outpatient (AMB) | payer OTHER, SELFPAY ==
--- NOTE | 2025-01-07 10:02 | A.OFFPC_ITS ---
Vital Signs 01/07/25 10:09 Height 5 ft 3 in Weight 312 lb 4 oz BMI 55.3 BP 112/60 Blood Pressure Location Rt brachial Position Sitting Respiration 14 Pulse 85 Pulse Source Pulse Oximeter Temp 97.6 F Temp Source Oral Pulse Oximetry (%) 96 Oxygen Delivery Method Room Air Intake Visit Reasons: f/u diabetes Intake Note: patient is scheduled for follow-up with A1c and has no concerns. Allergies Iodinated Contrast Media Allergy (Severe, Verified 01/07/25 10:05) Blister Wxngrmu-QPW-UrN Reductase Inhibitor [Gtixora-Isg-Lok Reductase Inhibitor] Allergy (Verified 01/07/25 10:05) Swollen sulfamethoxazole [From Bactrim] Allergy (Verified 01/07/25 10:05) Swollen trimethoprim [From Bactrim] Allergy (Verified 01/07/25 10:05) Swollen oxycodone Adverse Reaction (Verified 01/07/25 10:05) does not tolerate Medication List - Last Reconciled 01/07/25 by Paresh Trivedi MD Advair Diskus 500-50 mcg/dose (fluticasone propion-salmeterol) 1 ea PO BID 30 days NS albuterol sulfate 90 mcg/actuation 2 puffs inhalation Q4-6H PRN 30 days albuterol sulfate 2.5 mg (3 mL) inhalation Q4H PRN betamethasone dipropionate 0.05% appl topical blood sugar diagnostic (FreeStyle Lite Strips) As directed four times a day docusate sodium 200 mg (2 x 100 mg) PO BEDTIME ezetimibe 10 mg PO DAILY fluticasone propionate 50 mcg/actuation 1 spray intranasal BID 30 days hydrocortisone 2.5% 1 appl [place] BEDTIME PRN insulin glargine (Lantus Solostar U-100 Insulin) 28 units (0.28 mL) subcut QAM 30 days insulin syringe-needle U-100 As directed lancets (FreeStyle Lancets) As directed four time a day lisinopril 5 mg PO DAILY 90 days metformin 1,000 mg PO BID methylcellulose (laxative) (Fiber Therapy (methylcellulose)) 625 mg (1.25 x 500 mg) PO TID miscellaneous medical supply Motorized Electric Scooter. Daily As directed, 999 days. miscellaneous medical supply diabetic shoes miscellaneous medical supply Donut Cushion. Daily As directed, 999 days mometasone 50 mcg/actuation (Allergy Nasal (mometasone)) 2 sprays intranasal DAILY PRN 30 days naproxen sodium (Aleve) 220 mg PO BID PRN olopatadine 0.7% 1 drp ophthalmic (eye) DAILY PRN 30 days pen needle, diabetic (BD Mirta 2nd Gen Pen Needle) As directed twice a day polyethylene glycol 3350 (Gavilax) 17 grams PO DAILY sildenafil 100 mg PO DAILY PRN 30 days tiotropium bromide 2.5 mcg/actuation (Spiriva Respimat) 2 puffs PO DAILY ustekinumab (Stelara) 90 mg subcut Q12W Tobacco use date assessed: 01/07/25 Dental Screening Dental Screen Date: 01/07/25 Did you have a dental visit in the last 12 months?: Yes Did you have a dental problem in the last 6 months where you did not have access to dental care?: No Was dental information given to patient?: No HPI f/u diabetes HPI Details 59 y/o male presents to f/u diabetes. Had him increase Lantus from 20 units daily to 25 units daily. He continues metformin as prescribed. Labs drawn 12/28/24. Reviewed labs with pt. Triglycerides 92. TC 168. LDL 103. HDL 47. PSA 0.59. A1c today 7.5%. He has an appt. in January for his diabetic eye exam. HPI Comments History of Present Illness Details Documentation assistance for Paresh Trivedi MD, was provided by Tristian Landa,? [employer]fit[employer] Supervisor on 01/07/2025 at 10:08 AM EST. I, Dr. Trivedi, have read, observed, and verified documentation. ?? [facility] Medical History (Updated 08/21/24 @ 09:20 by Shahana Molina PA-C) Essential hypertension Hyperlipidemia Type 2 diabetes mellitus with hyperglycemia, with long-term current use of insulin Asthma-COPD overlap syndrome COPD (chronic obstructive pulmonary disease) GEORGE (obstructive sleep apnea) Environmental allergies Morbid obesity Chronic pain Psoriasis Surgical History History of repair of hiatal hernia Family History Father Diabetes Social History Household Members: Spouse Housing: Apartment Alcohol intake: never Patient Tobacco Use Status: Former Tobacco user e-Cigarette/Vaping Use: Never Used Second Hand Smoke Exposure: No service: No Current occupational status: disabled Current occupational exposures/hazards: No Cognitive needs: No Hearing needs: No Vision needs: No Questionnaire PHQ-9 Over the last 2 weeks, how often have you been bothered by any of the following problems? 1. Little interest or pleasure in doing things: not at all 2. Feeling down, depressed, or hopeless: not at all 3. Trouble falling or staying asleep, or sleeping too much: not at all 4. Feeling tired or having little energy: not at all 5. Poor appetite or overeating: not at all 6. Feeling bad about yourself - or that you are a failure or have let yourself o r your family down: not at all 7. Trouble concentrating on things, such as reading the newspaper or watching television: not at all 8. Moving or speaking so slowly that other people could have noticed. Or the opposite - being so fidgety or restless that you have been moving around a lot more than usual: not at all 9. Thoughts that you would be better off or of hurting yourself in some way: not at all Total score: 0 Source: Developed by Drs. Sharan Restrepo, Yasmine Pineda, Romero Stark and colleagues, with an educational jeannette from [employer]. Thrive Questionnaire Date Thrive assessed: 11/23/24 I am a: Patient What is your living situation today?: I choose not to answer this question Within the past 12 months, did the food you bought not last and you didn't have the money to get more?: I choose not to answer this question Within the past 12 months, did you worry whether your food would run out before you got money to buy more?: I choose not to answer this question Do you have trouble paying for medicines?: I choose not to answer this question Do you have trouble getting transportation to medical appointments?: I choose not to answer this question Do you have trouble paying your heating and electricity bill?: I choose not to answer this question Do you have trouble taking care of your child, family member or friend?: I choose not to answer this question Do you have trouble with day-to-day activities such as bathing, preparing meals, shopping, managing finances, etc.?: I choose not to answer this question Are you currently unemployed and looking for a job?: I choose not to answer this question Are you interested in more education?: I choose not to answer this question Please select the resources that you would like help with: None Currently or been in a relationship where the following occur: I choose not to answer THRIVE Score: 0 AUDIT C Alcohol Use Questionnaire (AUDIT-C) 1. How often do you have a drink containing alcohol?: Never Total Score: 0 INES-7 AMB Questionnaire INES-7 Date INES - 7 assessed: 01/07/25 Feeling nervous, anxious, or on edge: 0 = Not at all Worrying too much about different things: 0 = Not at all Trouble relaxin = Not at all Being so restless that it is hard to sit still: 0 = Not at all Becoming easily annoyed or irritable: 0 = Not at all Feeling afraid as if something awful might happen: 0 = Not at all Source: Developed by Drs. Sharan Restrepo, Yasmine Pineda, Romero Stark and colleagues, with an educational jeannette from [employer]. INES-7 Assessment Billing INES-7 Assessment Tool: INES-7 Assessment 50199 Review of Systems Const Denies chills, Denies fatigue, Denies fever(s), Denies headache(s) and Denies weakness ENT Denies dizziness and Denies headache(s) Card Denies dyspnea Resp Denies cough, Denies dyspnea, Denies wheezing and Denies other (shortness of breath) Musc Denies numbness and Denies tingling Neuro Denies dizziness, Denies headache(s), Denies numbness, Denies tingling and Denies weakness Psych Denies anxiety and Denies depression Endo Denies fatigue Aller/Immun Denies wheezing Physical exam (Primary Care) Vital Signs: Last Vital Signs Temp 97.6 F 01/07/25 10:09 Pulse 85 01/07/25 10:09 Resp 14 01/07/25 10:09 BP 112/60 01/07/25 10:09 Pulse Ox 96 01/07/25 10:09 Oxygen Delivery Method Room Air 01/07/25 10:09 BMI result Body Mass Index 55.3 Tobacco/Smoking Status: Tobacco use Status Tobacco use date assessed 01/07/25 01/07/25 10:15 Patient Tobacco Use Status Former Tobacco user 01/07/25 10:03 e-Cigarette/Vaping Use Never Used 01/07/25 10:03 PHQ-9: PHQ-9 Score PHQ-9: Total score 0 01/07/25 10:08 Thrive Assessment: Date of Thrive Assessment Date Thrive assessed 11/23/24 01/07/25 10:03 Currently or been in a relationship where the following occur: I choose not to answer Const General: well developed; No acute distress Nutritional Appearance: well nourished Orientation/consciousness: patient oriented x3 HENMT Head: Yes normocephalic and Yes atraumatic Eyes General: appearance normal, both eyes and all related structures Pupils: Equal, round and reactive pupils present EOM: EOMs intact bilaterally Resp Effort & Inspection: normal respiratory effort Neuro General: patient oriented x3 and gait normal Cranial nerves: Yes Equal, round and reactive pupils present Psych Affect: normal affect Coding Level of Care Code Est Pt Level 4 (78859) Diagnoses Diabetes mellitus type 2, insulin dependent E11.9; Z79.4 Essential hypertension I10 Hyperlipidemia E78.5 Immunization counseling Z71.85 Additional Codes INES-7 Assessment Billing - INES-7 Assessment Tool: INES-7 Assessment 66633 ([id number]) Assessment & Plan Assessment & Plan (1) Diabetes mellitus type 2, insulin dependent: Code(s): E11.9 - Type 2 diabetes mellitus without complications; Z79.4 - long term care social worker (current) use of insulin Category: Medical Plan: A1c?improved?from?7.5%?to?7.8% goal?is?around?7.0% Will?have?him?increase?Lantus From?25?units?daily?to?28?units?daily Continue?metformin?as?prescribed Encouraged?diet?lower?in?sugars?and?starches Encouraged?exercise?as?tolerated Encouraged?weight?loss (2) Essential hypertension: Code(s): I10 - Essential (primary) hypertension Category: Medical Plan: Blood?pressure?is?controlled.??Goal?is?less?than?140/90 Continue?current?medication (3) Hyperlipidemia: Code(s): E78.5 - Hyperlipidemia, unspecified Category: Medical Plan: LDL?cholesterol?slightly?above?goal?of?less?than?100 Keep?working?at?diet?low?in?saturated?fats?and?cholesterol Continue?Zetia (4) Immunization counseling: Code(s): Z71.85 - Encounter for immunization safety counseling Category: Medical Plan: We?discussed?COVID?shot?and?RSV. We?discussed?shingles?shot Will?be?due?for?pneumonia?shots?at?63 Will?be?due?for?flu?shots?in?the?fall Medications: Changed From insulin glargine (Lantus Solostar U-100 Insulin) 25 units subcut QAM To insulin glargine (Lantus Solostar U-100 Insulin) 28 units (0.28 mL) subcut QAM 9 mL 0RF 30 days Discontinued tirzepatide (Mounjaro) for 4 weeks Discontinued Reason: Doctor's Order 2.5 mg (0.5 mL) subcut QWEEK 28 days 2 mL 3RF
[2025-01-07 10:09] VITALS: BP 112/60; PULSE 85; RESP 14; TEMP 36.4; O2SAT 96; BMI 55.3
--- OUTSIDE RECORDS SUMMARY | 2025-01-07 10:21 | XMS_ITS | Continuity of Care Document ---
Author Organization [facility] Address [address] [place] [address] Phone [phone] Care Team Providers Care Faculty Research Assistant Name Role Phone Paresh Trivedi MD Care Team Information General Helper [phone] Problems Active Problems Provider Date Essential hypertension [...] milliliters weekly 2ml Corky Yan M.D. 07/24/2024 [id number] Tablets 1 by mouth every day 90tabs Corky Yan M.D. 06/24/2024 Freestyle [place] LiteW/Device Kit as directed dx: e11.9 1units Corky Yan M.D. 07/31/2023 Lantus [id number] Solution Pen-Inject Inject 20 Units Subcutaneously In The Morning DX: E11.9 30ml E11Neli Yan M.D. 12/13/2022 Freestyle Vikas 3/Sensor/Glucose Monitoring Rpzvot2Ordolm Misc as directed 3units Corky Yan M.D. 09/28/2022 Freestyle Lite TestStrips use 1 test strip four times a day check glucose dx: e11.9 300units E11.9 Corky Yan M.D. [id number] Tablets 1 by mouth every day Paresh Trivedi MD [id number] Tablets 1 by mouth every day 90tabs Paresh Trivedi MD Metformin [id number] Tablets 1 tab by mouth twice a day 180tabs Corky Yan M.D. BD Pen Needle/Mirta 2ND Gen/32G X 5/32 32G X 4 mm Misc Use as Directed Twice Daily Dx: E11.9 300units E11.9 Corky Yan M.D. Spiriva Respimat2.5mcg/Act Aerosol Inhale 2 Puffs By Mouth Daily Louis Bond Cetirizine [id number] Tablets Take 1 Tablet By Mouth Every [...] Alberto 21 mg/dL 5-40 LDL Chol Calc ([facility]) 92 mg/dL 0-99 LDL Calc Comment: TNP Urinalysis, Complete 07/02/2024 [facility] Specific [place] 1.021 1.005-1.030 pH 6.0 5.0-7.5 Urine-Color Yellow [...] Triny ECLIA methodol ogy. According to the [place] [employer], Serum PSA should decrease and [...] D deficiency has been defined by the [place] [employer] and an Endocrine Society practice guideline as a level of serum 25-OH vitamin D less than 20 ng/mL (1,2). The Endocrine Society went on to further define vitamin D insufficiency as a level between 21 and 29 ng/mL (2). 1. IOM ([place] [employer]). 2010. Dietary reference intakes for [...]
== END 2025-01-07 10:36 | disposition home or self-care (01) ==
LOC: HO.HMCFM 09:38
PROVIDERS: PCP Family Medicine; Visit Provider Family Medicine
DX: E11.9 Type 2 diabetes mellitus without complications (principal); Z79.4 Long term (current) use of insulin; I10 Essential (primary) hypertension; E78.5 Hyperlipidemia, unspecified; Z71.85 Encounter for immunization safety counseling

== ENCOUNTER → 2025-01-07 09:37 | Outpatient (BNVA) | payer OTHER, SELFPAY | PROVIDERS: PCP Family Medicine; Visit Provider Family Medicine | DX: E11.9 Type 2 diabetes mellitus without complications (principal); I10 Essential (primary) hypertension; E78.5 Hyperlipidemia, unspecified; Z79.4 Long term (current) use of insulin; Z79.84 Long term (current) use of oral hypoglycemic drugs; Z71.85 Encounter for immunization safety counseling | CPT/HCPCS: 96127; 99212 ==

== ENCOUNTER 2025-02-19 10:46 | Outpatient (AMB) | payer OTHER, SELFPAY ==
--- NOTE | 2025-02-19 10:48 | MHC.OFFVIS ---
Vital Signs 02/19/25 11:19 Height 5 ft 3 in Weight 312 lb BMI 55.3 BP 117/62 Blood Pressure Location Lt brachial Position Sitting Pulse 96 Intake Visit Reasons: constipation casandra patient Intake Note: Patient complex follow up for constipation/Casandra joselin was 12/25/2023. Patient cc: Constipation on and off, and denies any other GI issues for today Guide Plant Required: No Accompanied by: Self / Same As Patient Allergies Iodinated Contrast Media Allergy (Severe, Verified 02/19/25 10:48) Blister Ptufmyl-MML-EkC Reductase Inhibitor (Jzwqsnm-Zzo-Tzq Reductase Inhibitor) Allergy (Verified 02/19/25 10:48) Swollen sulfamethoxazole (From Bactrim) Allergy (Verified 02/19/25 10:48) Swollen trimethoprim (From Bactrim) Allergy (Verified 02/19/25 10:48) Swollen oxycodone Adverse Reaction (Verified 02/19/25 10:48) does not tolerate Medication List - Last Reconciled 02/19/25 by Kianna Ahumada, JILLIAN Advair Diskus 500-50 mcg/dose (fluticasone propion-salmeterol) 1 ea PO BID 30 days NS albuterol sulfate 90 mcg/actuation 2 puffs inhalation Q4-6H PRN 30 days albuterol sulfate 2.5 mg (3 mL) inhalation Q4H PRN betamethasone dipropionate 0.05% appl topical blood sugar diagnostic (FreeStyle Lite Strips) As directed four times a day docusate sodium 200 mg (2 x 100 mg) PO BEDTIME ezetimibe 10 mg PO DAILY fluticasone propionate 50 mcg/actuation 1 spray intranasal BID 30 days hydrocortisone 2.5% 1 appl [place] BEDTIME PRN insulin glargine (Lantus Solostar U-100 Insulin) 28 units (0.28 mL) subcut QAM 30 days insulin syringe-needle U-100 As directed lancets (FreeStyle Lancets) As directed four time a day lisinopril 5 mg PO DAILY 90 days metformin 1,000 mg PO BID miscellaneous medical supply Motorized Electric Scooter. Daily As directed, 999 days. miscellaneous medical supply diabetic shoes miscellaneous medical supply Donut Cushion. Daily As directed, 999 days mometasone 50 mcg/actuation (Allergy Nasal (mometasone)) 2 sprays intranasal DAILY PRN 30 days naproxen sodium (Aleve) 220 mg PO BID PRN olopatadine 0.7% 1 drp ophthalmic (eye) DAILY PRN 30 days pen needle, diabetic (BD Mirta 2nd Gen Pen Needle) As directed twice a day polyethylene glycol 3350 (Gavilax) 17 grams PO DAILY sildenafil 100 mg PO DAILY PRN 30 days tiotropium bromide 2.5 mcg/actuation (Spiriva Respimat) 2 puffs PO DAILY tirzepatide (Mounjaro) 2.5 mg subcut QWEEK ustekinumab (Stelara) 90 mg subcut Q12W HPI HPI constipation casandra patient: Details: Patient is a 59-year-old male with PMH of morbid obesity, hypertension, hyperlipidemia, diabetes, COPD, GEORGE, OA. Last visit with SUSAN Crawley 12/25/2023 for follow up for constipation. Omar presents for a follow-up regarding his constipation. He reports no symptoms currently and notes regular bowel movements once or twice daily. Occasionally, his stools are hard, but not in the form of hard little balls. Omar admits to sometimes needing to strain, albeit not frequently, due to his use of stool softeners at bedtime, which have been effective. Shares he stopped the fibers tablet due to excessive gas. Endorses mild occasional gas which resolves on its own and is sometimes alleviated by wojy-mdw-srhyfsd gas tablets. He denies any blood in his stools or hemorrhoids. He last used Cologuard in January 2024, which was negative, and typical repeat testing is every three years unless new symptoms arise. Omar has COPD, making him high risk for procedures requiring anesthesia, such as a colonoscopy. He started Mounjaro recently for diabetes, tolerating well. Patient denies: fever/chills, n/v, pyrosis, regurgitation, dysphasia, unintentional wt loss, ab pain or melena/hematochezia. [facility] Medical History (Updated 02/19/25 @ 15:30 by Kianna Ahumada CNP) Essential hypertension Hyperlipidemia Type 2 diabetes mellitus with hyperglycemia, with long-term current use of insulin Asthma-COPD overlap syndrome COPD (chronic obstructive pulmonary disease) GEORGE (obstructive sleep apnea) Environmental allergies Morbid obesity Chronic pain Psoriasis Surgical History History of repair of hiatal hernia Family History Father Diabetes Social History Household Members: Spouse Housing: Apartment Alcohol intake: never Patient Tobacco Use Status: Former Tobacco user e-Cigarette/Vaping Use: Never Used Second Hand Smoke Exposure: No service: No Current occupational status: disabled Current occupational exposures/hazards: No Cognitive needs: No Hearing needs: No Vision needs: No Review of Systems Const Reports as per HPI ENT Reports as per HPI Card Reports as per HPI Resp Reports as per HPI GI Reports as per HPI Reports as per HPI Physical Exam Vital Signs: Last Vital Signs Pulse 96 02/19/25 11:19 BP 117/62 02/19/25 11:19 BMI result Body Mass Index 55.3 Const General: no acute distress Nutritional Appearance: obese Orientation/consciousness: patient oriented x3 HEENT Head: Yes normal to inspection, Yes normocephalic and Yes atraumatic Face and sinus: Yes normal facial exam Eyes General: appearance normal, both eyes and all related structures Neck Neck: Yes normal visual inspection Resp Effort & Inspection: normal respiratory effort, able to speak in complete sentences, no tracheal deviation and symmetric chest movement Auscultation: clear to auscultation bilaterally Cardio Jugular venous distension: no JVD Rate: regular rate Rhythm: regular rhythm Heart sounds: S1 normal heart sound present, S2 normal heart sound present, no gallops and no murmurs GI Inspection: Yes normal to inspection, No distended and Yes obesity Palpation (GI): Soft to palpation, not firm, nontender and No hepatosplenomegaly present Auscultation: normal bowel sounds Neuro General: patient oriented x3 Gait exam (Neuro): Assisted gait required (canes) Gait assisted method: other Psych Appearance: grossly normal Mental Status: mental status grossly normal Speech and movement: Normal speech and movement present Affect: normal affect Attitude: cooperative Thought process: Normal thought process present Thought content: Normal thought content present Insight: Good insight present (Psych) Judgement: Good judgement present (Psych) Assessment & Plan Assessment & Plan (1) Constipation: Comment: Multiple comorbidities-COPD, GEORGE, hypertension, diabetes, obesity Code(s): K59.00 - Constipation, unspecified Category: Medical Qualifiers: Constipation type: other constipation type Qualified Code(s): K59.09 - Other constipation Plan: Constipation management is effective and ongoing. - Additional Tests: None required. - Medications: Continue current regimen of stool softeners (Colace) and Miralax. - Lifestyle Modifications: Continue high-fiber diet with vegetables, monitor fiber intake considering possible GLP-1 (Mounjaro) side effects. Plan Shared decision making to follow up in one year of sooner as needed. Time: I spent a total of 20 minutes on the date of encounter which includes: Preparing to see the patient (reviewed previous documentation, test results and medical history) Performing a medically appropriate exam and/or evaluation Ordering medications, tests, and procedures Documenting clinical information in the health record Medications: Refilled docusate sodium 200 mg (2 x 100 mg) PO BEDTIME 60 caps 5RF polyethylene glycol 3350 (Gavilax) 17 grams PO DAILY 510 grams 6RF Coding Level of Care Code Established Pt Est Pt Level 3 (22158) Patient Type Established Diagnoses Other constipation K59.09 Constipation type: other constipation type
--- OUTSIDE RECORDS SUMMARY | 2025-02-19 11:13 | XMS_ITS | Continuity of Care Document ---
Author Organization [facility] Address [address] [place] [address] Phone [phone] Care Team Providers Care Reduction Furnace Operator Helper Name Role Phone Paresh Trivedi MD Care Team Information Tableau Lead [phone] Problems Active Problems Provider Date Essential hypertension [...] Social History Type Date Description Comments Sex Male Sex Unknown ETOH Use Denies alcohol use Tobacco Use Start: Unknown End: Unknown Patient is a former smoker Allergies and adverse reactions Active Allergies Criticality Reaction Severity Comments Date Statins Unable to assess criticality 09/28/2022 Sulfamethoxazole Unable to assess criticality 09/28/2022 Trimethoprim Unable to assess criticality 09/28/2022 Oxycodone Unable to assess criticality 09/28/2022 Medications Active Medications SIG Qnty Indications Order ing Provider Date Mounjaro2.5mg/0.5M L Solution Auto-Inject inject 0.5 milliliters weekly 2ml Corky Yan M.D. 07/24/2024 Mncilzkyc50ov Tablets 1 by mouth every day 90tabs Corky Yan M.D. 06/24/2024 Freestyle [place] LiteW/Device Kit as directed dx: e11.9 1units Corky Yan M.D. 07/31/2023 Lantus Usyplppc929Yvvs/ML Solution Pen-Inject Inject 28 Units Subcutaneously In The Morning DX: E11.9 30ml Corky Yan M.D. 12/13/2022 Freestyle Vikas 3/Sensor/Glucose Monitoring Cpvxud0Cmikuj Misc as directed 3units Corky Yan M.D. 09/28/2022 Freestyle Lite TestStrips use 1 test strip four times a day check glucose dx: e11.9 300units E11.9 Corky Yan M.D. Hopelmcdwh45on Tablets 1 by mouth every day Paresh Trivedi MD Seconiqya81fw Tablets 1 by mouth every day 90tabs Paresh Trivedi MD Metformin EVP4851os Tablets 1 tab by mouth twice a day 180tabs Corky Yan M.D. BD Pen Needle/Mirta 2ND Gen/32G X 5/32 32G X 4 mm Misc Use as Directed Twice Daily Dx: E11.9 300units E11.9 Corky Yan M.D. Spiriva Respimat2.5mcg/Act Aerosol Inhale 2 Puffs By Mouth Daily Louis Bond Cetirizine CSO66fc Tablets Take 1 Tablet By Mouth Every Day as Needed Paresh Trivedi MD Vital Signs Date Vital Result Comment 01/18/2025 10:53am BP Systolic 90 mmHg BP Diastolic 60 mmHg Heart Rate 72 /min Height 65 inches 5'5 Weight 315.00 lb BMI (Body Mass Index) 52.4 kg/m2 Results Test Acquired Date Facility Test Result H/L Range Note Hemoglobin A1c 01/18/2025 Inhouse Hemoglobin A1c 7.7% Glucose Fingerstick 01/18/2025 Inhouse Glucose Fingerstick 174 Comp. Metabolic Panel (14) 07/02/2024 [facility] Glucose [...] Comment: TNP Urinalysis, Complete 07/02/2024 [facility] Specific [place] 1.021 1.005-1.030 pH 6.0 5.0-7.5 Urine-Color Yellow [...] Vitamin D, 25-Hydroxy 30.9 ng/mL 30.0-100.0 4 Glucose Fingerstick 06/24/2024 Inhouse Glucose Fingerstick 176 Hemoglobin A1c 06/24/2024 Inhouse Hemoglobin A1c 7.5% Glucose Fingerstick 03/12/2024 Inhouse Glucose Fingerstick 158 Hemoglobin A1c 03/12/2024 Inhouse Hemoglobin A1c 6.9% Glucose Fingerstick 11/28/2023 Inhouse Glucose Fingerstick 186 Hemoglobin A1c 11/28/2023 Inhouse Hemoglobin A1c 7.2% Glucose Fingerstick 07/31/2023 Inhouse Glucose Fingerstick 147 [...] Microscopic follows if indicated. 2 Microscopic was madleyn cated and was performed. 3 Triny ECLIA methodol ogy. According to the [place] [employer], Serum PSA should decrease and [...] D deficiency has been defined by the [place] of [employer] and an Endocrine Society practice guideline as a level of serum 25-OH vitamin D less than 20 ng/mL (1,2). The Endocrine Society went on to further define vitamin D insufficiency as a level between 21 and 29 ng/mL (2). 1. IOM ([place] [employer]). 2010. Dietary reference intakes for calcium and D. [place]: The National Academies Press. 2. Monica MF, Glenna [place], Thomas GALLARDO, et al. Evaluation, treatment, and prevention of vitamin D deficiency: an Endocrine Society clinical practice guideline. JCEM. 2010; 96(7):1911-30. Medical Devices Description No Information Available Encounters Type Date Location Provider Dx Diagnosis Office Visit 01/18/2025 10:45a Main Office Corky Yan M.D. E11.9 Type 2 diabetes mellitus without complications Assessments Date Code Description Provider 01/18/2025 E11.9 Type 2 diabetes mellitus without complications Corky Yan M.D. Plan of Treatment Future Appointment(s):* 05/12/2025 9:30 am - Corky Yan M.D. at Main Office 01/18/2025 - Corky Yan M.D.* E11.9 Type 2 diabetes mellitus without complications Functional Status Description No Information Available Mental Status Description No Information Available Referrals Description No Information Available
[2025-02-19 11:19] VITALS: BP 117/62; PULSE 96; BMI 55.3
== END 2025-02-19 11:32 | disposition home or self-care (01) ==
PROVIDERS: PCP Family Medicine; Visit Provider Nurse Practitioner Family
DX: K59.09 Other constipation (principal)
CPT/HCPCS: 99213

== ENCOUNTER → 2025-02-19 10:46 | Outpatient (BNVA) | payer OTHER, SELFPAY | PROVIDERS: PCP Family Medicine; Visit Provider Nurse Practitioner Family | DX: K59.09 Other constipation (principal) | CPT/HCPCS: 99212 ==

== ENCOUNTER 2025-04-15 09:19 | Outpatient (AMB) | payer OTHER, SELFPAY ==
--- NOTE | 2025-04-15 09:38 | A.OFFPC_ITS ---
Intake Visit Reasons: f/u HTN, diabetes Intake Note: Follow up htn and diabetes Allergies Iodinated Contrast Media Allergy (Severe, Verified 02/19/25 10:48) Blister Ikzeeqi-ZBS-PnT Reductase Inhibitor (Qijvjxc-Zze-Sqn Reductase Inhibitor) Allergy (Verified 02/19/25 10:48) Swollen sulfamethoxazole (From Bactrim) Allergy (Verified 02/19/25 10:48) Swollen trimethoprim (From Bactrim) Allergy (Verified 02/19/25 10:48) Swollen oxycodone Adverse Reaction (Verified 02/19/25 10:48) does not tolerate Tobacco use date assessed: 01/07/25 Dental Screening Dental Screen Date: 01/07/25 [facility] Medical History (Updated 02/19/25 @ 15:30 by Kianna Ahumada CNP) Essential hypertension Hyperlipidemia Type 2 diabetes mellitus with hyperglycemia, with long-term current use of insulin Asthma-COPD overlap syndrome COPD (chronic obstructive pulmonary disease) GEORGE (obstructive sleep apnea) Environmental allergies Morbid obesity Chronic pain Psoriasis Surgical History History of repair of hiatal hernia Family History Father Diabetes Social History Household Members: Spouse Housing: Apartment Alcohol intake: never Patient Tobacco Use Status: Former Tobacco user e-Cigarette/Vaping Use: Never Used Second Hand Smoke Exposure: No service: No Current occupational status: disabled Current occupational exposures/hazards: No Cognitive needs: No Hearing needs: No Vision needs: No Questionnaire PHQ-9 Over the last 2 weeks, how often have you been bothered by any of the following problems? 1. Little interest or pleasure in doing things: not at all 2. Feeling down, depressed, or hopeless: not at all 3. Trouble falling or staying asleep, or sleeping too much: not at all 4. Feeling tired or having little energy: not at all 5. Poor appetite or overeating: not at all 6. Feeling bad about yourself - or that you are a failure or have let yourself or your family down: not at all 7. Trouble concentrating on things, such as reading the newspaper or watching television: not at all 8. Moving or speaking so slowly that other people could have noticed. Or the opposite - being so fidgety or restless that you have been moving around a lot more than usual: not at all 9. Thoughts that you would be better off or of hurting yourself in some way: not at all Total score: 0 Depression Screening Interpretation: Negative Depression Screening Done: Yes 59152 - PHQ-9 Billing: Yes Source: Developed by Drs. Sharan Restrepo, Yasmine Pineda, Romero Stark and colleagues, with an educational jeannette from [employer]. Thrive Questionnaire Date Thrive assessed: 04/15/25 I am a: Patient What is your living situation today?: I choose not to answer this question Within the past 12 months, did the food you bought not last and you didn't have the money to get more?: I choose not to answer this question Within the past 12 months, did you worry whether your food would run out before you got money to buy more?: I choose not to answer this question Do you have trouble paying for medicines?: I choose not to answer this question Do you have trouble getting transportation to medical appointments?: I choose not to answer this question Do you have trouble paying your heating and electricity bill?: I choose not to answer this question Do you have trouble taking care of your child, family member or friend?: I choose not to answer this question Do you have trouble with day-to-day activities such as bathing, preparing meals, shopping, managing finances, etc.?: I choose not to answer this question Are you currently unemployed and looking for a job?: I choose not to answer this question Are you interested in more education?: I choose not to answer this question Please select the resources that you would like help with: None Currently or been in a relationship where the following occur: I choose not to answer THRIVE Score: 0 INES-7 AMB Questionnaire INES-7 Date INES - 7 assessed: 04/15/25 Feeling nervous, anxious, or on edge: 0 = Not at all Not being able to stop or control worryin = Not at all Worrying too much about different things: 0 = Not at all Trouble relaxin = Not at all Being so restless that it is hard to sit still: 0 = Not at all Becoming easily annoyed or irritable: 0 = Not at all Feeling afraid as if something awful might happen: 0 = Not at all Total INES-7 score (0-4 normal; 5-9 mild; 10-14 moderate; 15-21 severe): 0 Source: Developed by Drs. Sharan Restrepo, Yasmine Pineda, Romero Stark and colleagues, with an educational jeannette from [employer]. INES-7 Assessment Billing INES-7 Assessment Tool: INES-7 Assessment 13759 Physical exam (Primary Care) Tobacco/Smoking Status: Tobacco use Status Tobacco use date assessed 01/07/25 01/07/25 10:15 Patient Tobacco Use Status Former Tobacco user 01/07/25 10:03 e-Cigarette/Vaping Use Never Used 01/07/25 10:03 Depression Screening Interpretation: Negative Thrive Assessment: Date of Thrive Assessment Date Thrive assessed 11/23/24 01/07/25 10:03 Currently or been in a relationship where the following occur: I choose not to answer Coding Additional Codes PHQ-9 - 75350 - PHQ-9 Billing: Yes ([id number]) INES-7 Assessment Billing - INES-7 Assessment Tool: INES-7 Assessment 90606 ([id number])
--- NOTE | 2025-04-15 09:45 | MHC.PC.OV ---
Vital Signs 04/15/25 09:55 Height 5 ft 3 in Weight 310 lb 8 oz BMI 55.0 BP 114/60 Blood Pressure Location Rt brachial Position Sitting Respiration 14 Pulse 97 Pulse Source Pulse Oximeter Temp 98.7 F Temp Source Temporal Artery Scan Pulse Oximetry (%) 97 Intake Visit Reasons: f/u HTN, diabetes Intake Note: Omar presents in the office today for hypertension and diabetes. Allergies Iodinated Contrast Media Allergy (Severe, Verified 04/15/25 09:51) Blister Ecnrmon-BLS-RfQ Reductase Inhibitor ([place]-Unt-Isu Reductase Inhibitor) Allergy (Verified 04/15/25 09:51) Swollen sulfamethoxazole (From Bactrim) Allergy (Verified 04/15/25 09:51) Swollen trimethoprim (From Bactrim) Allergy (Verified 04/15/25 09:51) Swollen oxycodone Adverse Reaction (Verified 04/15/25 09:51) does not tolerate Medication List - Last Reconciled 04/15/25 by Paresh Trivedi MD Advair Diskus 500-50 mcg/dose (fluticasone propion-salmeterol) 1 ea PO BID 30 days NS albuterol sulfate 90 mcg/actuation 2 puffs inhalation Q4-6H PRN 30 days albuterol sulfate 2.5 mg (3 mL) inhalation Q4H PRN betamethasone dipropionate 0.05% appl topical blood sugar diagnostic (FreeStyle Lite Strips) As directed four times a day docusate sodium 200 mg (2 x 100 mg) PO BEDTIME ezetimibe 10 mg PO DAILY fluticasone propionate 50 mcg/actuation 1 spray intranasal BID 30 days hydrocortisone 2.5% 1 appl VA BEDTIME PRN insulin glargine (Lantus Solostar U-100 Insulin) 23 units subcut QAM insulin syringe-needle U-100 As directed lactulose 10 grams (15 mL) PO DAILY PRN lancets (FreeStyle Lancets) As directed four time a day lisinopril 5 mg PO DAILY 90 days metformin 1,000 mg PO BID miscellaneous medical supply Motorized Electric Scooter. Daily As directed, 999 days. miscellaneous medical supply diabetic shoes miscellaneous medical supply Donut Cushion. Daily As directed, 999 days naproxen sodium (Aleve) 220 mg PO BID PRN olopatadine 0.7% 1 drp ophthalmic (eye) DAILY PRN 30 days pen needle, diabetic (BD Mirta 2nd Gen Pen Needle) As directed twice a day polyethylene glycol 3350 (Gavilax) 17 grams PO DAILY sildenafil orally once; administer 30 minutes to 4 hours before activity tiotropium bromide 2.5 mcg/actuation (Spiriva Respimat) 2 puffs PO DAILY tirzepatide (Mounjaro) 2.5 mg subcut QWEEK ustekinumab (Stelara) 90 mg subcut Q12W Tobacco use date assessed: 04/15/25 Dental Screening Dental Screen Date: 04/15/25 Did you have a dental visit in the last 12 months?: Yes Did you have a dental problem in the last 6 months where you did not have access to dental care?: No Was dental information given to patient?: Patient has dentist HPI f/u HTN, diabetes HPI Details 59 y/o male presents to f/u diabetes, hypertension. BP today 114/60, 97p. He is on lisinopril 5mg daily. A1c today 04/15/25 6.9%. He is on Mounjaro 2.5mg, metformin 1000mg b.i.d, insulin 23 units. Pt notes he is tolerating mounjaro well. Has had mounjaro for a month and a half. Has an appt. with an workers compensation claims specialist June. HPI Comments History of Present Illness Details Documentation assistance for Paresh Trivedi MD, was provided by Tristian Landa,? Air Crew Member on 04/15/2025 at 10:14 AM EST. I, Dr. Trivedi, have read, observed, and verified documentation. ?? [facility] Medical History (Updated 02/19/25 @ 15:30 by Kianna Ahumada CNP) Essential hypertension Hyperlipidemia Type 2 diabetes mellitus with hyperglycemia, with long-term current use of insulin Asthma-COPD overlap syndrome COPD (chronic obstructive pulmonary disease) GEORGE (obstructive sleep apnea) Environmental allergies Morbid obesity Chronic pain Psoriasis Surgical History History of repair of hiatal hernia Family History Father Diabetes Social History (Updated 04/15/25 @ 09:55 by Tasha Pantoja MA) Household Members: Spouse Housing: Apartment Alcohol intake: never Patient Tobacco Use Status: Former Tobacco user e-Cigarette/Vaping Use: Never Used Second Hand Smoke Exposure: No Use of substances other than those prescribed or required for medical reasons: No service: No Current occupational status: disabled Current occupational exposures/hazards: No Cognitive needs: No Hearing needs: No Vision needs: No Questionnaire Thrive Questionnaire Date Thrive assessed: 11/23/24 I am a: Patient What is your living situation today?: I choose not to answer this question Within the past 12 months, did the food you bought not last and you didn't have the money to get more?: I choose not to answer this question Within the past 12 months, did you worry whether your food would run out before you got money to buy more?: I choose not to answer this question Do you have trouble paying for medicines?: I choose not to answer this question Do you have trouble getting transportation to medical appointments?: I choose not to answer this question Do you have trouble paying your heating and electricity bill?: I choose not to answer this question Do you have trouble taking care of your child, family member or friend?: I choose not to answer this question Do you have trouble with day-to-day activities such as bathing, preparing meals, shopping, managing finances, etc.?: I choose not to answer this question Are you currently unemployed and looking for a job?: I choose not to answer this question Are you interested in more education?: I choose not to answer this question Please select the resources that you would like help with: None Currently or been in a relationship where the following occur: I choose not to answer THRIVE Score: 0 INES-7 AMB Questionnaire INES-7 Date INES - 7 assessed: 01/07/25 Source: Developed by Drs. Sharan Restrepo, Yasmine Pineda, Romero Stark and colleagues, with an educational jeannette from [employer]. Review of Systems Const Denies chills, Denies fatigue, Denies fever(s), Denies headache(s) and Denies weakness ENT Denies dizziness and Denies headache(s) Card Denies chest pain, Denies lightheadedness, Denies dyspnea and Denies other (Palpitations) Resp Denies cough, Denies dyspnea, Denies wheezing and Denies other ( shortness of breath) Musc Denies numbness and Denies tingling Neuro Denies dizziness, Denies headache(s), Denies numbness, Denies tingling, Denies paresthesias and Denies weakness Psych Denies anxiety and Denies depression Endo Denies fatigue Aller/Immun Denies wheezing Physical exam (Primary Care) Vital Signs: Last Vital Signs Temp 98.7 F 04/15/25 09:55 Pulse 97 04/15/25 09:55 Resp 14 04/15/25 09:55 BP 114/60 04/15/25 09:55 Pulse Ox 97 04/15/25 09:55 BMI result Body Mass Index 55.0 Tobacco/Smoking Status: Tobacco use Status Tobacco use date assessed 04/15/25 04/15/25 10:00 Patient Tobacco Use Status Former Tobacco user 04/15/25 09:55 e-Cigarette/Vaping Use Never Used 04/15/25 09:55 Thrive Assessment: Date of Thrive Assessment Date Thrive assessed 11/23/24 04/15/25 09:47 Currently or been in a relationship where the following occur: I choose not to answer Const General: no acute distress and well developed Nutritional Appearance: well nourished Orientation/consciousness: patient oriented x3 HENMT Head: Yes normocephalic and Yes atraumatic Eyes General: appearance normal, both eyes and all related structures Pupils: Equal, round and reactive pupils present EOM: EOMs intact bilaterally Resp Effort & Inspection: normal respiratory effort Auscultation: clear to auscultation bilaterally Cardio Rate: regular rate Rhythm: regular rhythm Heart sounds: S1 normal heart sound present, S2 normal heart sound present, no gallops, no murmurs and no rubs Neuro General: patient oriented x3 and gait normal Cranial nerves: Yes Equal, round and reactive pupils present Psych Affect: normal affect Results AMB Hemoglobin A1c AMB Hemoglobin A1c 6.9 % Last Edit by Tasha Pantoja MA on 04/15/25 10:07 Results Reviewed Results Reviewed: Laboratory Last Values Hgb A1c (Clinic) 6.9 % (4.0-6.0) H 04/15/25 10:00 Coding Level of Care Code Est Pt Level 4 (08856) Diagnoses Diabetes mellitus type 2, insulin dependent E11.9; Z79.4 Essential hypertension I10 Morbid obesity E66.01 Assessment & Plan Assessment & Plan (1) Diabetes mellitus type 2, insulin dependent: Code(s): E11.9 - Type 2 diabetes mellitus without complications; 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 Controlled. Goal is less than 7.0% Patient has started tirzepatide and blood sugar is now controlled. He has decreased his Lantus to 23 units daily. Continues metformin. Will increase tirzepatide from 2.5 mg weekly 2 5 mg weekly. Continue monitoring blood sugars and adjust Lantus as needed (2) Essential hypertension: Code(s): I10 - Essential (primary) hypertension Category: Medical Plan: Blood pressure is well controlled. Goal is less than 140/90 Continue lisinopril as prescribed (3) Morbid obesity: Code(s): E66.01 - Morbid (severe) obesity due to excess calories Category: Medical Plan: As above, patient has is noted use appetite. He says he has lost about 5 lb on the low is nose. Will increase dangers at midline as described above Continue working at diet weight loss Patient also has significant mobility issues due to obesity. Also knee problems. 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 Medications: Changed From insulin glargine (Lantus Solostar U-100 Insulin) 28 units (0.28 mL) subcut QAM 30 days 9 mL 0RF To insulin glargine (Lantus Solostar U-100 Insulin) 23 units subcut QAM From sildenafil administer 30 minutes to 4 hours before activity 100 mg PO DAILY 30 days PRN 4 tabs 2RF sexual activity To sildenafil orally once; administer 30 minutes to 4 hours before activity From tirzepatide (Mounjaro) for 4 weeks 2.5 mg subcut QWEEK To tirzepatide for 4 weeks 5 mg (0.5 mL) subcut QWEEK 2 mL 3RF 28 days From ezetimibe 10 mg PO DAILY 30 tabs 0RF To ezetimibe 10 mg PO DAILY 90 tabs 4RF 90 days From miscellaneous medical supply Motorized Electric Scooter. Daily As directed, 999 days. 1 ea 0RF E66.09 - Other obesity due to excess calories, G89.29 - Other chronic pain, J44.9 - Chronic obstructive pulmonary disease, unspecified, M16.4 - Bilateral post-traumatic osteoarthritis of hip, M54.5 - Low back pain To miscellaneous medical supply Lightweight Motorized Electric Scooter. Daily As directed, 999 days. 1 ea 0RF E66.09 - Other obesity due to excess calories, G89.29 - Other chronic pain, J44.9 - Chronic obstructive pulmonary disease, unspecified, M16.4 - Bilateral post-traumatic osteoarthritis of hip, M54.5 - Low back pain
--- OUTSIDE RECORDS SUMMARY | 2025-04-15 09:51 | XMS_ITS | Continuity of Care Document ---
Author Organization [facility] Address [address] [place] [address] Phone [phone] Care Team Providers Care Road Monkey Name Role Phone Paresh Trivedi MD Care Team Information Yield Analyst [phone] Problems Active Problems Provider Date Essential hypertension [...] SIG Qnty Indications Order ing Provider Date B-D Mirta 2ND Gen Pen NDL [id number] Use as Directed Twice Daily 300units Corky Yan M.D. 04/06/2025 Mounjaro2.5mg/0.5M L Solution Auto-Inject inject 0.5 milliliters weekly 2ml Corky Yan M.D. 07/24/2024 Kagwipxug19nx Tablets 1 by mouth every day 90tabs Corky Yan M.D. 06/24/2024 Freestyle [place] LiteW/Device Kit as directed dx: e11.9 1units Corky Yan M.D. 07/31/2023 Lantus Ejbwboau228Xrwb/ML Solution Pen-Inject Inject 28 Units Subcutaneously In The Morning DX: E11.9 30ml Corky Yan M.D. 12/13/2022 Freestyle Vikas 3/Sensor/Glucose Monitoring Wwpumr7Lrgdjz Misc as directed 3units Corky Yan M.D. 09/28/2022 Freestyle Lite TestStrips use 1 test strip four times a day check glucose dx: e11.9 300units E11.9 Corky Yan M.D. Xnymuaaacg09kh Tablets 1 by mouth every day Paresh Trivedi MD Klagwxfys00ql Tablets 1 by mouth every day 90tabs Paresh Trivedi MD Metformin [id number] Tablets 1 tab by mouth twice a day 180tabs Corky Yan M.D. BD Pen Needle/Mirta 2ND Gen/32G X 5/32 32G X 4 mm Misc Use as Directed Twice Daily Dx: E11.9 300units E11Sherif9 Corky Yan M.D. Spiriva Respimat2.5mcg/Act Aerosol Inhale 2 Puffs By Mouth Daily Louis Bond Cetirizine IWA63op Tablets Take 1 Tablet By Mouth Every [...] Alberto 21 mg/dL 5-40 LDL Chol Calc ([facility]) 92 mg/dL 0-99 LDL Calc Comment: TNP Urinalysis, Complete 07/02/2024 [facility] Specific [place] 1.021 1.005-1.030 pH 6.0 5.0-7.5 Urine-Color Yellow [...] Triny ECLIA methodol ogy. According to the [place] [employer], Serum PSA should decrease and [...] D deficiency has been defined by the [place] [employer] and an Endocrine Society practice guideline as a level of serum 25-OH vitamin D less than 20 ng/mL (1,2). The Endocrine Society went on to further define vitamin D insufficiency as a level between 21 and 29 ng/mL (2). 1. IOM ([place] [employer]). 2010. Dietary reference intakes for [...]
[2025-04-15 09:55] VITALS: BP 114/60; PULSE 97; RESP 14; TEMP 37.1; O2SAT 97; BMI 55.0
== END 2025-04-15 10:29 | disposition home or self-care (01) ==
LOC: HO.HMCFM 09:21
PROVIDERS: PCP Family Medicine; Visit Provider Family Medicine
DX: E11.9 Type 2 diabetes mellitus without complications (principal); Z79.4 Long term (current) use of insulin; E66.01 Morbid (severe) obesity due to excess calories; Z68.43 Body mass index [BMI] 50.0-59.9, adult; I10 Essential (primary) hypertension

== ENCOUNTER → 2025-04-15 09:19 | Outpatient (BNVA) | payer OTHER, SELFPAY | PROVIDERS: PCP Family Medicine; Visit Provider Family Medicine | DX: I10 Essential (primary) hypertension (principal); E11.9 Type 2 diabetes mellitus without complications; E66.09 Other obesity due to excess calories; G89.29 Other chronic pain; M16.4 Bilateral post-traumatic osteoarthritis of hip; M54.50 Low back pain, unspecified; Z68.43 Body mass index [BMI] 50.0-59.9, adult | CPT/HCPCS: 83036; 99212 ==

== ENCOUNTER 2025-04-28 13:20 | Outpatient (AMB) | payer OTHER, SELFPAY ==
[2025-04-28 13:22] VITALS: BP 111/62; PULSE 96; O2SAT 97; BMI 56.0
--- NOTE | 2025-04-28 13:22 | A.OFFVIS_ITS ---
Vital Signs 04/28/25 13:22 Height 5 ft 3 in Weight 316 lb 5.813 oz BMI 56.0 BP 111/62 Blood Pressure Location Lt brachial Position Sitting Pulse 96 Pulse Source Pulse Oximeter Pulse Oximetry (%) 97 Oxygen Delivery Method Room Air Intake Visit Reasons: george Allergies Iodinated Contrast Media Allergy (Severe, Verified 04/28/25 13:26) Blister Xhymsij-ODU-QvV Reductase Inhibitor (Xytrmty-Wvz-Isr Reductase Inhibitor) Allergy (Verified 04/28/25 13:26) Swollen sulfamethoxazole (From Bactrim) Allergy (Verified 04/28/25 13:26) Swollen trimethoprim (From Bactrim) Allergy (Verified 04/28/25 13:26) Swollen oxycodone Adverse Reaction (Verified 04/28/25 13:26) does not tolerate HPI HPI george: Details: 59-year-old gentleman former 30+ pack-year smoker, quit 2004 prior with underlying history of morbid obesity, GEORGE, environmental allergies, and COPD.? He uses brand Advair 500 and Spiriva Respimat with good control of his symptoms.? He denies any recent exacerbations. Patient did not tolerate CPAP. His allergic rhinitis symptoms are well controlled on Flonase. [facility] Medical History (Updated 02/19/25 @ 15:30 by Kianna Ahumada CNP) Essential hypertension Hyperlipidemia Type 2 diabetes mellitus with hyperglycemia, with long-term current use of insulin Asthma-COPD overlap syndrome COPD (chronic obstructive pulmonary disease) GEORGE (obstructive sleep apnea) Environmental allergies Morbid obesity Chronic pain Psoriasis Surgical History History of repair of hiatal hernia Family History Father Diabetes Social History (Updated 04/15/25 @ 09:55 by Tasha Pantoja MA) Household Members: Spouse Housing: Apartment Alcohol intake: never Patient Tobacco Use Status: Former Tobacco user e-Cigarette/Vaping Use: Never Used Second Hand Smoke Exposure: No service: No Current occupational status: disabled Current occupational exposures/hazards: No Cognitive needs: No Hearing needs: No Vision needs: No Review of Systems Const Denies daytime sleepiness, Denies excessive sweating, Denies fatigue, Denies fever(s), Denies lethargy, Denies malaise, Denies night sweats, Denies snoring and Denies weight loss Eyes Denies blurry vision and Denies itchy eyes ENT Denies nasal congestion, Denies post nasal drip, Denies sinus pain, Denies sinus pressure and Denies other ( Thrush) Card Denies chest pain, Denies pedal edema, Denies dyspnea, Denies orthopnea and Denies paroxysmal nocturnal dyspnea Resp Denies cough, Denies hemoptysis, Denies excessive phlegm production, Denies dyspnea, Denies snoring and Denies wheezing GI Denies abdominal pain and Denies heartburn Musc Denies myalgias, Denies arthralgias and Denies joint swelling Skin/Breast Denies rash Neuro Denies memory loss and Denies seizure-like activity Psych Denies abnormal sleep pattern, Denies anxiety and Denies memory loss Endo Denies excessive sweating, Denies fatigue and Denies heat intolerance Varun/Lymph Denies easy bruising Aller/Immun Denies itchy eyes, Denies seasonal rhinorrhea and Denies wheezing Physical Exam Vital Signs: Last Vital Signs Pulse 96 04/28/25 13:22 BP 111/62 04/28/25 13:22 Pulse Ox 97 04/28/25 13:22 Oxygen Delivery Method Room Air 04/28/25 13:22 BMI result Body Mass Index 56.0 Const General: no acute distress and alert Nutritional Appearance: obese Orientation/consciousness: Other orientation findings ( oriented) HEENT Head: Yes atraumatic Eyes General: appearance normal, both eyes and all related structures Sclerae: sclerae normal EOM: EOMs intact bilaterally Neck Neck: Yes supple Lymphatic: no lymphadenopathy noted Resp Effort & Inspection: normal respiratory effort and no use of accessory muscles Auscultation: clear to auscultation bilaterally Cardio Rate: regular rate Rhythm: regular rhythm Heart sounds: no gallops, no murmurs and no rubs Skin General skin exam: other ( warm) Extrem General: No clubbing, No cyanosis and No edema Assessment & Plan Assessment & Plan (1) Asthma-COPD overlap syndrome: Code(s): J44.9 - Chronic obstructive pulmonary disease, unspecified Category: Medical Plan: Well controlled on brand and Advair and brand Spiriva with albuterol MDI/nebs. Continue current regimen. (2) Restrictive lung disease secondary to obesity: Code(s): J98.4 - Other disorders of lung; E66.9 - Obesity, unspecified Category: Medical Plan: Secondary to underlying significant obesity. Patient continues to try to intentionally lose weight. (3) Environmental allergies: Code(s): Z91.09 - Other allergy status, other than to drugs and biological substances Category: Medical Plan: Well controlled on Flonase. Continue current regimen. Coding Level of Care Code Est Pt Level 4 (36273) Diagnoses Asthma-COPD overlap syndrome J44.9 Restrictive lung disease secondary to obesity J98.4; E66.9 Environmental allergies Z91.09
--- OUTSIDE RECORDS SUMMARY | 2025-04-28 14:11 | XMS_ITS | Continuity of Care Document ---
Author Organization [facility] Address [address] [place] [address] Phone [phone] Care Team Providers Care Professional Bass Fisher Name Role Phone Paresh Trivedi MD Care Team Information Medical Laboratory Technologist [phone] Problems Active Problems Provider Date Essential hypertension [...] Date B-D Mirta 2ND Gen Pen NDL [id number] Use as Directed Twice Daily 300units Corky Yan M.D. 04/06/2025 Mounjaro2.5mg/0.5M L Solution Auto-Inject inject 0.5 milliliters weekly 2ml Corky Yan M.D. 07/24/2024 Kbcodkmdd42hc Tablets 1 by mouth every day 90tabs Corky Yan M.D. 06/24/2024 Freestyle [place] LiteW/Device Kit as directed dx: e11.9 1units Corky Yan M.D. 07/31/2023 Lantus Xnlmxndv744Cqnq/ML Solution Pen-Inject Inject 25 Units Subcutaneously In The Morning DX: E11.9 15ml Corky Yan M.D. 12/13/2022 Freestyle Vikas 3/Sensor/Glucose Monitoring Clkllk4Sdaada Misc as directed 3units Corky Yan M.D. 09/28/2022 Freestyle Lite TestStrips use 1 test strip four times a day check glucose dx: e11.9 300units E11.9 Corky Yan M.D. Rwjpprpaxq69eg Tablets 1 by mouth every day Paresh Trivedi MD Xlyqzvyyp68mp Tablets 1 by mouth every day 90tabs Paresh Trivedi MD Metformin [id number] Tablets 1 tab by mouth twice a day 180tabs Corky Yan M.D. BD Pen Needle/Mirta 2ND Gen/32G X 5/32 32G X 4 mm Misc Use as Directed Twice Daily Dx: E11.9 300units E11Sherif9 Corky Yan M.D. Spiriva Respimat2.5mcg/Act Aerosol Inhale 2 Puffs By Mouth Daily Louis Bond Cetirizine ZTU84qh Tablets Take 1 Tablet By Mouth Every [...] Alberto 21 mg/dL 5-40 LDL Chol Calc ([facility]) 92 mg/dL 0-99 LDL Calc Comment: TNP Urinalysis, Complete 07/02/2024 [facility] Specific [place] 1.021 1.005-1.030 pH 6.0 5.0-7.5 Urine-Color Yellow [...] Triny ECLIA methodol ogy. According to the [place] [employer], Serum PSA should decrease and [...] D deficiency has been defined by the [place] of Medicine and an Endocrine Society practice guideline as a level of serum 25-OH vitamin D less than 20 ng/mL (1,2). The Endocrine Society went on to further define vitamin D insufficiency as a level between 21 and 29 ng/mL (2). 1. IOM ([place] of [employer]). 2010. Dietary reference intakes for [...]
== END 2025-04-28 13:42 | disposition home or self-care (01) ==
LOC: HO.HPS 13:21
PROVIDERS: PCP Family Medicine; Visit Provider Internal Medicine Pulmonary Disease
DX: J44.9 Chronic obstructive pulmonary disease, unspecified (principal); J98.4 Other disorders of lung; E66.9 Obesity, unspecified; Z91.09 Other allergy status, other than to drugs and biological substances
CPT/HCPCS: 99214

== ENCOUNTER → 2025-04-28 13:20 | Outpatient (BNVA) | payer OTHER, SELFPAY | PROVIDERS: PCP Family Medicine; Visit Provider Internal Medicine Pulmonary Disease | DX: J44.9 Chronic obstructive pulmonary disease, unspecified (principal); E66.9 Obesity, unspecified; J98.4 Other disorders of lung; Z91.09 Other allergy status, other than to drugs and biological substances | CPT/HCPCS: 99212 ==

== ENCOUNTER 2025-06-14 10:20 | Outpatient (AMB) | payer OTHER, SELFPAY ==
--- OUTSIDE RECORDS SUMMARY | 2025-06-14 10:22 | XMS_ITS | Continuity of Care Document ---
Author Organization [facility] Address [address] [place] [address] Phone [phone] Care Team Providers Care Supervisor [employer] Name Role Phone Paresh Trivedi MD Care Team Information Corporate Planner [phone] Problems Active Problems Provider Date Essential hypertension [...] SIG Qnty Indications Order ing Provider Date Jwhoguhs5ug/0.5ML Solution Auto-Inject inject 0.5 milliliters weekly Corky Yan M.D. 05/12/2025 Freestyle Vikas 3 Plus/Sensor/Glucos e Monitoring SystemMisc apply one sensor to skin every 14 days dx: e10.21 3units Corky Yan M.D. 05/12/2025 B-D Mirta 2ND Gen Pen NDL [id number] Use as Directed Twice Daily 300units Corky Yan M.D. 04/06/2025 Freestyle [place] LiteW/Device Kit as directed dx: e11.9 1units Corky Yna M.D. 07/31/2023 Lantus Ytpjblml908Ghue/ML Solution Pen-Inject Inject 23 Units Subcutaneously In The Morning DX: E11.9 15ml Corky Yan M.D. 12/13/2022 Freestyle Lite TestStrips use 1 test strip four times a day check glucose dx: e11.9 300units E11.9 Corky Yan M.D. Vbblrdumq82ru Tablets 1 by mouth every day 90tabs Paresh Trivedi MD Metformin KHD1887ds Tablets 1 tab by mouth twice a day 180tabs Corky Yan M.D. BD Pen Needle/Mirta 2ND Gen/32G X 5/32 32G X 4 mm Misc Use as Directed Twice Daily Dx: E11.9 300units E11.9 Corky Yan M.D. Spiriva Respimat2.5mcg/Act Aerosol Inhale 2 Puffs By Mouth Daily Louis Bond Yvbmmoezxh4fa Tablets 1 by mouth every day Unknown 000 Advair Ufdnwv745-91dov/Ac t Aerosol Inhale 1 puff By Mouth Twice Daily Louis Bond Docusate Zqqojw991ng Capsules Take 2 Capsules By Mouth AT Bedtime Casandra Contreras PA History Medications Mounjaro2.5mg/0.5ML Solution Auto-Inject inject 0.5 milliliters weekly 2ml Corky Yan M.D. 07/24/2024 - 05/12/2025 Qqznpyxzs85pk Tablets 1 by mouth every day 90tabs Corky Yan M.D. 06/24/2024 - 05/12/2025 Vital Signs Date Vital Result Comment 05/12/2025 9:30am BP Systolic 110 mmHg BP Diastolic 80 mmHg Heart Rate 72 /min Height 65 inches 5'5 Weight 314.38 lb BMI (Body Mass Index) 52.3 kg/m2 Results Test Acquired Date Facility Test Result H/L Range Note Glucose Fingerstick 05/12/2025 Inhouse Glucose Fingerstick 151 Glucose Fingerstick 01/18/2025 Inhouse Glucose Fingerstick 174 Hemoglobin A1c 01/18/2025 Inhouse Hemoglobin A1c 7.7% Comp. Metabolic Panel (14) 07/02/2024 [facility] Glucose [...] Comment: TNP Urinalysis, Complete 07/02/2024 [facility] [place] 1.021 1.005-1.030 pH 6.0 5.0-7.5 Urine-Color Yellow [...] Hemoglobin A1c 06/24/2024 Inhouse Hemoglobin A1c 7.5% Hemoglobin A1c 03/12/2024 Inhouse Hemoglobin A1c 6.9% Glucose Fingerstick 03/12/2024 Inhouse Glucose Fingerstick 158 Glucose Fingerstick 11/28/2023 Inhouse Glucose Fingerstick 186 [...] Triny ECLIA methodol ogy. According to the [place] [employer] Association, Serum PSA should decrease and [...] D deficiency has been defined by the [place] of Medicine and an Endocrine Society practice guideline as a level of serum 25-OH vitamin D less than 20 ng/mL (1,2). The Endocrine Society went on to further define vitamin D insufficiency as a level between 21 and 29 ng/mL (2). 1. IOM ([place] of Medicine). 2010. Dietary reference intakes for calcium and D. [place]: The National Academies Press. 2. Monica MF, Glenna [place], Thomas GALLARDO, et al. Evaluation, treatment, and prevention of vitamin D deficiency: an Endocrine Society clinical practice guideline. JCEM. 2010; 96(7):1911-30. Medical Devices Description No Information Available Encounters Type Date Location Provider Dx Diagnosis Office Visit 05/12/2025 9:30a Main Office Corky Yan M.D. E11.9 Type 2 diabetes mellitus without complications E66.9 Obesity, unspecified Assessments Date Code Description Provider 05/12/2025 E11.9 Type 2 diabetes mellitus without complications Corky Yan M.D. 05/12/2025 E66.9 Obesity Corky odom M.D. Plan of Treatment Future Appointment(s):* 09/09/2025 9:30 am - Corky Yan M.D. at Main Office 01/18/2025 - Corky Yan M.D.* E11.9 Type 2 diabetes mellitus without complications Functional Status Description No Information Available Mental Status Description No Information Available Referrals Description No Information Available
--- NOTE | 2025-06-14 11:13 | MHC.PC.OV ---
Vital Signs 06/14/25 11:20 Height 5 ft 3 in Weight 310 lb 6 oz BMI 55.0 BP 112/62 Blood Pressure Location Lt brachial Position Sitting Respiration 15 Pulse 99 Pulse Source Pulse Oximeter Temp 97.6 F Temp Source Temporal Artery Scan Pulse Oximetry (%) 100 Oxygen Delivery Method Room Air Oxygen Flow Rate 100 Intake Visit Reasons: Sore L lower leg Intake Note: Omar presents in the office today for a same day due to a sore on his lower left leg. Patient states he is having an issue with his left hip and would like to make a plan. Allergies Iodinated Contrast Media Allergy (Severe, Verified 06/14/25 11:17) Blister Zxwpcsm-DQY-PxV Reductase Inhibitor (Fntdwnl-Len-Zwb Reductase Inhibitor) Allergy (Verified 06/14/25 11:17) Swollen sulfamethoxazole (From Bactrim) Allergy (Verified 06/14/25 11:17) Swollen trimethoprim (From Bactrim) Allergy (Verified 06/14/25 11:17) Swollen oxycodone Adverse Reaction (Verified 06/14/25 11:17) does not tolerate Medication List - Last Reconciled 06/14/25 by Paresh Trivedi MD Advair Diskus 500-50 mcg/dose (fluticasone propion-salmeterol) 1 ea PO BID 30 days NS albuterol sulfate 90 mcg/actuation 2 puffs inhalation Q4-6H PRN 30 days albuterol sulfate 2.5 mg (3 mL) inhalation Q4H PRN betamethasone dipropionate 0.05% appl topical blood sugar diagnostic (FreeStyle Lite Strips) As directed four times a day docusate sodium 200 mg (2 x 100 mg) PO BEDTIME ezetimibe 10 mg PO DAILY 90 days fluticasone propionate 50 mcg/actuation 1 spray intranasal BID 30 days hydrocortisone 2.5% 1 appl MN BEDTIME PRN insulin glargine (Lantus Solostar U-100 Insulin) 23 units subcut QAM insulin syringe-needle U-100 As directed lactulose 10 grams (15 mL) PO DAILY PRN lancets (FreeStyle Lancets) As directed four time a day lisinopril 5 mg PO DAILY 90 days metformin 1,000 mg PO BID miscellaneous medical supply diabetic shoes miscellaneous medical supply Donut Cushion. Daily As directed, 999 days miscellaneous medical supply Lightweight Motorized Electric Scooter. Daily As directed, 999 days. naproxen sodium (Aleve) 220 mg PO BID PRN olopatadine 0.7% 1 drp ophthalmic (eye) DAILY PRN 30 days pen needle, diabetic (BD Mirta 2nd Gen Pen Needle) As directed twice a day polyethylene glycol 3350 (Gavilax) 17 grams PO DAILY sildenafil orally once; administer 30 minutes to 4 hours before activity tiotropium bromide 2.5 mcg/actuation (Spiriva Respimat) 2 puffs PO DAILY tirzepatide 7.5 mg (0.5 mL) subcut QWEEK 28 days ustekinumab (Stelara) 90 mg subcut Q12W Tobacco use date assessed: 06/14/25 Dental Screening Dental Screen Date: 06/14/25 Did you have a dental visit in the last 12 months?: No Did you have a dental problem in the last 6 months where you did not have access to dental care?: No Was dental information given to patient?: Patient declined HPI Sore L lower leg HPI Details 59 y/o male presents with complaints of L lower leg pain. Has complaints of a sore on his leg. Does have cellulitis of L lane. Continues to work on weight loss. [facility] Medical History (Updated 06/14/25 @ 12:08 by Paresh Trivedi MD) Essential hypertension Hyperlipidemia Type 2 diabetes mellitus with hyperglycemia, with long-term current use of insulin Asthma-COPD overlap syndrome COPD (chronic obstructive pulmonary disease) GEORGE (obstructive sleep apnea) Environmental allergies Morbid obesity Chronic pain Psoriasis Surgical History History of repair of hiatal hernia Family History Father Diabetes Social History (Updated 06/14/25 @ 11:19 by Tasha Pantoja CMA) Household Members: Spouse Housing: Apartment Alcohol intake: never Patient Tobacco Use Status: Former Tobacco user e-Cigarette/Vaping Use: Never Used Second Hand Smoke Exposure: No Use of substances other than those prescribed or required for medical reasons: No service: No Current occupational status: disabled Current occupational exposures/hazards: No Cognitive needs: No Hearing needs: No Vision needs: No Questionnaire Thrive Questionnaire Date Thrive assessed: 11/23/24 INES-7 AMB Questionnaire INES-7 Date INES - 7 assessed: 01/07/25 Source: Developed by Drs. Sharan Restrepo, Yasmine Pineda, Romero Stark and colleagues, with an educational jeannette from [employer]. Review of Systems Const Denies chills, Denies fatigue, Denies fever(s), Denies headache(s) and Denies weakness ENT Denies dizziness and Denies headache(s) Card Denies dyspnea Resp Denies cough, Denies dyspnea, Denies wheezing and Denies other (shortness of breath) Musc Denies numbness and Denies tingling Neuro Denies dizziness, Denies headache(s), Denies numbness, Denies tingling and Denies weakness Psych Denies anxiety and Denies depression Endo Denies fatigue Aller/Immun Denies wheezing Physical exam (Primary Care) Vital Signs: Last Vital Signs Temp 97.6 F 06/14/25 11:20 Pulse 99 06/14/25 11:20 Resp 15 06/14/25 11:20 BP 112/62 06/14/25 11:20 Pulse Ox 100 06/14/25 11:20 Oxygen Delivery Method Room Air 06/14/25 11:20 Oxygen Flow Rate 100 06/14/25 11:20 BMI result Body Mass Index 55.0 Tobacco/Smoking Status: Tobacco use Status Tobacco use date assessed 06/14/25 06/14/25 11:24 Patient Tobacco Use Status Former Tobacco user 06/14/25 11:19 e-Cigarette/Vaping Use Never Used 06/14/25 11:19 Thrive Assessment: Date of Thrive Assessment Date Thrive assessed 11/23/24 06/14/25 11:15 Const General: well developed; No acute distress Nutritional Appearance: well nourished Orientation/consciousness: patient oriented x3 HENMT Head: Yes normocephalic and Yes atraumatic Eyes General: appearance normal, both eyes and all related structures Pupils: Equal, round and reactive pupils present EOM: EOMs intact bilaterally Resp Effort & Inspection: normal respiratory effort Skin Other: 1 cm ulcerations at anterolateral aspect left lane Neuro General: patient oriented x3 and gait normal Cranial nerves: Yes Equal, round and reactive pupils present Psych Affect: normal affect Coding Level of Care Code Est Pt Level 4 (23821) Diagnoses Cellulitis L03.90 Morbid obesity E66.01 Diabetes mellitus type 2, insulin dependent E11.9; Z79.4 Pain of left lower extremity M79.605 Left hip pain M25.552 Post-traumatic osteoarthritis of both hips M16.4 Osteoarthritis type: post-traumatic Assessment & Plan Assessment & Plan (1) Cellulitis: Code(s): L03.90 - Cellulitis, unspecified Category: Medical Plan: Cellulitis at left lane Giving him script for cephalexin. Also to 1 cm ulcerations at anterolateral aspect left lane and these appear mildly infected as well. He can use mupirocin or bacitracin and a Telfa pad. Elevate legs or use compression stockings when you can not elevate Will follow-up in 1 week. If not improving will refer to wound care. Patient will monitor for any worsening redness swelling or discharge and if so, will refer to wound care sooner. (2) Morbid obesity: Code(s): E66.01 - Morbid (severe) obesity due to excess calories Category: Medical Plan: He continues to work at weight loss and is taking Mounjaro as prescribed. Will increase Mounjaro (3) Diabetes mellitus type 2, insulin dependent: Code(s): E11.9 - Type 2 diabetes mellitus without complications; Z79.4 - long term care administrator (current) use of insulin Category: Medical Plan: A1c has improved and now at 6.9%. Goal is less than 7% Continue Mounjaro - increasing from 5 mg weekly to 7.5 mg weekly. (4) Pain of left lower extremity: Code(s): M79.605 - Pain in left leg Category: Medical (5) Left hip pain: Code(s): M25.552 - Pain in left hip Category: Medical (6) Osteoarthritis, hip, bilateral: Comment: Combination of primary and post-traumatic severe hip osteoarthritis, not a surgical candidate due to weight and DM Code(s): M16.0 - Bilateral primary osteoarthritis of hip Category: Medical Qualifiers: Osteoarthritis type: post-traumatic Qualified Code(s): M16.4 - Bilateral post-traumatic osteoarthritis of hip Plan Pain at left hip and knee History of bilateral osteoarthritis of the hips Last x-ray in 2020. We ordering x-ray of left hip. Patient would like a referral to ortho regarding left hip - referred Orders: Orders US venous duplex LE LT Today M79.605 - Pain in left leg XR hip LT min 2V Today M25.552 - Pain in left hip Referrals Orthopedics Referral M16.4 - Bilateral post-traumatic osteoarthritis of hip, M25.552 - Pain in left hip Medications: New cephalexin 500 mg PO Q12H 20 caps 0RF 10 days mupirocin 2% (Centany) 1 appl topical BID 15 grams 0RF 7 days Changed From tirzepatide for 4 weeks 5 mg (0.5 mL) subcut QWEEK 28 days 2 mL 3RF To tirzepatide for 4 weeks 7.5 mg (0.5 mL) subcut QWEEK 2 mL 3RF 28 days
[2025-06-14 11:20] VITALS: BP 112/62; PULSE 99; RESP 15; TEMP 36.4; O2SAT 100; BMI 55.0
== END 2025-06-14 12:30 | disposition home or self-care (01) ==
LOC: HO.HMCFM 10:20
PROVIDERS: PCP Family Medicine; Visit Provider Family Medicine
DX: E11.9 Type 2 diabetes mellitus without complications (principal); E66.01 Morbid (severe) obesity due to excess calories; Z79.4 Long term (current) use of insulin; Z68.43 Body mass index [BMI] 50.0-59.9, adult; L03.90 Cellulitis, unspecified; M79.605 Pain in left leg; M25.552 Pain in left hip; M16.4 Bilateral post-traumatic osteoarthritis of hip

== ENCOUNTER → 2025-06-14 10:20 | Outpatient (BNVA) | payer OTHER, SELFPAY | PROVIDERS: PCP Family Medicine; Visit Provider Family Medicine | DX: L03.116 Cellulitis of left lower limb (principal); L97.229 Non-pressure chronic ulcer of left calf with unspecified severity; E66.01 Morbid (severe) obesity due to excess calories; Z68.43 Body mass index [BMI] 50.0-59.9, adult; E11.9 Type 2 diabetes mellitus without complications; M25.552 Pain in left hip; M16.4 Bilateral post-traumatic osteoarthritis of hip; T14.90XS Injury, unspecified, sequela; Z79.4 Long term (current) use of insulin | CPT/HCPCS: 99212 ==

== ENCOUNTER 2025-06-16 11:03 | Outpatient (REF) | payer OTHER, SELFPAY ==
--- NOTE | ~2025-06-16 | XR_ITS ---
EXAMINATION: XR HIP, LEFT CLINICAL INFORMATION: M25.552 - Pain in left hip COMPARISON: January 23, 2021 TECHNIQUE: AP and oblique views of the left hip. FINDINGS: Subchondral cyst formation and sclerosis along the articular margins, joint space narrowing and volume loss involving the left coxofemoral joint without acute fracture or dislocation. Patient's large body habitus.. XR/XR hip LT min 2V IMPRESSION: Severe osteoarthrosis/osteoarthritis, left hip. Electronically signed by: Pernell Banegas MD 06/16/2025 11:36 AM EDT
--- NOTE | ~2025-06-16 | US_ITS ---
EXAMINATION: US TRIPLEX LOWER EXTREMITY, LEFT CLINICAL INFORMATION: Left lower extremity pain. COMPARISON: None available. TECHNIQUE: Color-flow triplex imaging with spectral analysis and compression Doppler were performed on the left lower extremity. FINDINGS: As per technologist note, limited exam due to patient habitus. Respiratory variation, normal compression and augmented flow are noted throughout the left lower extremity. The visualized common femoral vein, superficial femoral vein, profunda femoral vein, popliteal vein and midcalf peroneal and posterior tibial venous segments show no evidence of deep venous thrombosis. There is no Greene's cyst. US/US venous duplex LE LT IMPRESSION: No evidence of deep venous thrombosis involving the left lower extremity. Electronically signed by: Domo Benitez MD 06/16/2025 12:03 PM EDT
--- OUTSIDE RECORDS SUMMARY | 2025-06-16 13:40 | XMS_ITS | Continuity of Care Document ---
Author Organization [facility] Address [address] [place] [address] Phone [phone] Care Team Providers Care Rotary Planer Set Up Operator Name Role Phone Paresh Trivedi MD Care Team Information Formula Weigher [phone] Problems Active Problems Provider Date Essential hypertension Corky Yan M.D. O nset: 09/28/2022 Chronic obstructive lung disease Corky odom M.D. Onset: 09/28/2022 Hyperlipidemia Corky Yan M.D. Onset: 0 09/28/2022 Obesity Corky Yan M.D. Onset: 0 09/28/2022 Obstructive sleep apnea syndrome Corky odom M.D. Onset: 09/28/2022 Psoriasis Corky Yan M.D. Onset: 0 09/28/2022 Type 2 diabetes mellitus Coryk Yan M.D. Onset: 09/28/2022 Social History Type [...] SIG Qnty Indications Order ing Provider Date Uyldfukp6pp/0.5ML Solution Auto-Inject inject 0.5 milliliters weekly Corky Yan M.D. 05/12/2025 Freestyle Vikas 3 Plus/Sensor/Glucos e Monitoring SystemMisc apply one sensor to skin every 14 days dx: e10.21 3units oCrky Yan M.D. 05/12/2025 B-D Mirta 2ND Gen Pen NDL [id number] Use as Directed Twice Daily 300units Corky Yan M.D. 04/06/2025 Freestyle [place] LiteW/Device Kit as directed dx: e11.9 1units Corky Yan M.D. 07/31/2023 Lantus Srxvssgh014Azgk/ML Solution Pen-Inject Inject 23 Units Subcutaneously In The Morning DX: E11.9 15ml Corky Yan M.D. 12/13/2022 Freestyle Lite TestStrips use 1 test strip four times a day check glucose dx: e11.9 300units E11.9 Corky Yan M.D. Gdgiamkbi35lz Tablets 1 by mouth every day 90tabs Paresh Trivedi MD Metformin [id number] Tablets 1 tab by mouth twice a day 180tabs Corky Yan M.D. BD Pen Needle/Mirta 2ND Gen/32G X 5/32 32G X 4 mm Misc Use as Directed Twice Daily Dx: E11.9 300units E11.9 Cokry Yan M.D. Spiriva Respimat2.5mcg/Act Aerosol Inhale 2 Puffs By Mouth Daily Louis Bond Kpvqiesfxr6rt Tablets 1 by mouth every day Unknown 000 Advair Uhlrxg297-60oom/Ac t Aerosol Inhale 1 puff By Mouth Twice Daily Louis Bond Docusate Hxtvta331ib Capsules Take 2 Capsules By Mouth AT Bedtime Casandra Contreras PA History Medications Mounjaro2.5mg/0.5ML Solution Auto-Inject inject 0.5 milliliters weekly 2ml Corky Yan M.D. 07/24/2024 - 05/12/2025 Aprxwxxyw18kk Tablets 1 by mouth every day 90tabs [...] Comment: TNP Urinalysis, Complete 07/02/2024 [facility] Specific [place] 1.021 1.005-1.030 pH 6.0 5.0-7.5 Urine-Color Yellow [...] Triny ECLIA methodol ogy. According to the [place] [employer], Serum PSA should decrease and [...] D deficiency has been defined by the [place] of [employer] and an Endocrine Society practice guideline as a level of serum 25-OH vitamin D less than 20 ng/mL (1,2). The Endocrine Society went on to further define vitamin D insufficiency as a level between 21 and 29 ng/mL (2). 1. IOM ([place] of Medicine). 2010. Dietary reference intakes for [...]
== END 2025-06-16 11:04 | disposition home or self-care (01) ==
LOC: HO.US 11:03
PROVIDERS: PCP Family Medicine; Visit Provider Family Medicine
DX: M79.605 Pain in left leg (principal); M25.552 Pain in left hip
CPT/HCPCS: 73502; 93971

== ENCOUNTER → 2025-06-16 11:17 | Outpatient (BNV) | payer OTHER, SELFPAY | PROVIDERS: PCP Family Medicine; Visit Provider Radiology Diagnostic Radiology | DX: M79.605 Pain in left leg (principal); M17.12 Unilateral primary osteoarthritis, left knee | CPT/HCPCS: 73502; 93971 ==

== ENCOUNTER 2025-06-25 10:54 | Outpatient (AMB) | payer OTHER, SELFPAY ==
--- NOTE | 2025-06-25 11:14 | A.OFFPC_ITS ---
Vital Signs 06/25/25 11:19 Height 5 ft 3 in Weight 302 lb 6 oz BMI 53.6 BP 112/68 Blood Pressure Location Rt brachial Position Sitting Respiration 15 Pulse 106 H Pulse Source Pulse Oximeter Temp 97.9 F Temp Source Temporal Artery Scan Pulse Oximetry (%) 98 Oxygen Delivery Method Room Air Intake Visit Reasons: f/u cellulitis Intake Note: Omar presents in the office today to follow up on his cellulitis. Allergies Iodinated Contrast Media Allergy (Severe, Verified 06/25/25 11:17) Blister Rwnmmxx-DFT-XcT Reductase Inhibitor (Rswfnom-Mkm-Hgo Reductase Inhibitor) Allergy (Verified 06/25/25 11:17) Swollen sulfamethoxazole (From Bactrim) Allergy (Verified 06/25/25 11:17) Swollen trimethoprim (From Bactrim) Allergy (Verified 06/25/25 11:17) Swollen oxycodone Adverse Reaction (Verified 06/25/25 11:17) does not tolerate Medication List - Last Reconciled 06/25/25 by Paresh Trivedi MD Advair Diskus 500-50 mcg/dose (fluticasone propion-salmeterol) 1 ea PO BID 30 days NS albuterol sulfate 90 mcg/actuation 2 puffs inhalation Q4-6H PRN 30 days albuterol sulfate 2.5 mg (3 mL) inhalation Q4H PRN betamethasone dipropionate 0.05% appl topical blood sugar diagnostic (FreeStyle Lite Strips) As directed four times a day docusate sodium 200 mg (2 x 100 mg) PO BEDTIME ezetimibe 10 mg PO DAILY 90 days fluticasone propionate 50 mcg/actuation 1 spray intranasal BID 30 days hydrocortisone 2.5% 1 appl [place] BEDTIME PRN insulin glargine (Lantus Solostar U-100 Insulin) 23 units subcut QAM insulin syringe-needle U-100 As directed lactulose 10 grams (15 mL) PO DAILY PRN lancets (FreeStyle Lancets) As directed four time a day lisinopril 5 mg PO DAILY 90 days metformin 1,000 mg PO BID miscellaneous medical supply diabetic shoes miscellaneous medical supply Donut Cushion. Daily As directed, 999 days miscellaneous medical supply Lightweight Motorized Electric Scooter. Daily As directed, 999 days. mupirocin 2% (Centany) 1 appl topical BID 7 days naproxen sodium (Aleve) 220 mg PO BID PRN olopatadine 0.7% 1 drp ophthalmic (eye) DAILY PRN 30 days pen needle, diabetic (BD Mirta 2nd Gen Pen Needle) As directed twice a day polyethylene glycol 3350 (Gavilax) 17 grams PO DAILY sildenafil orally once; administer 30 minutes to 4 hours before activity tiotropium bromide 2.5 mcg/actuation (Spiriva Respimat) 2 puffs PO DAILY tirzepatide 7.5 mg (0.5 mL) subcut QWEEK 28 days ustekinumab (Stelara) 90 mg subcut Q12W Tobacco use date assessed: 06/25/25 Dental Screening Dental Screen Date: 06/25/25 Did you have a dental visit in the last 12 months?: Yes Did you have a dental problem in the last 6 months where you did not have access to dental care?: No Was dental information given to patient?: Patient has dentist HPI f/u cellulitis HPI Details 60 y/o male presents to f/u cellulitis w ith ulcerations at [address]. Pt notes cellulitis has been improving and denies anymore pain from the wound. Has completed his cephalexin. Pt had LLE pain. Ultrasound showed no evidence of DVT. [facility] Medical History (Updated 06/25/25 @ 11:54 by Paresh Trivedi MD) Essential hypertension Hyperlipidemia Type 2 diabetes mellitus with hyperglycemia, with long-term current use of insu naty Asthma-COPD overlap syndrome COPD (chronic obstructive pulmonary disease) GEORGE (obstructive sleep apnea) Environmental allergies Morbid obesity Chronic pain Psoriasis Surgical History History of repair of hiatal hernia Family History (Updated 06/25/25 @ 11:19 by Tasha Pantoja CMA) Father Diabetes Social History (Updated 06/25/25 @ 11:19 by Tasha Pantoja CMA) Household Members: Spouse Housing: Apartment Alcohol intake: never Patient Tobacco Use Status: Former Tobacco user e-Cigarette/Vaping Use: Never Used Second Hand Smoke Exposure: No Use of substances other than those prescribed or required for medical reasons: No service: No Current occupational status: disabled Current occupational exposures/hazards: No Cognitive needs: No Hearing needs: No Vision needs: No Questionnaire Thrive Questionnaire Date Thrive assessed: 11/23/24 I am a: Patient What is your living situation today?: I choose not to answer this question Within the past 12 months, did the food you bought not last and you didn't have the money to get more?: I choose not to answer this question Within the past 12 months, did you worry whether your food would run out before you got money to buy more?: I choose not to answer this question Do you have trouble paying for medicines?: I choose not to answer this question Do you have trouble getting transportation to medical appointments?: I choose not to answer this question Do you have trouble paying your heating and electricity bill?: I choose not to answer this question Do you have trouble taking care of your child, family member or friend?: I choose not to answer this question Do you have trouble with day-to-day activities such as bathing, preparing meals, shopping, managing finances, etc.?: I choose not to answer this question Are you currently unemployed and looking for a job?: I choose not to answer this question Are you interested in more education?: I choose not to answer this question Please select the resources that you would like help with: None Currently or been in a relationship where the following occur: I choose not to answer THRIVE Score: 0 INES-7 AMB Questionnaire INES-7 Date INES - 7 assessed: 01/07/25 Source: Developed by Drs. Sharan Restrepo, Yasmine Pineda, Romero Stark and colleagues, with an educational jeannette from [employer]. Review of Systems Const Denies chills, Denies fatigue, Denies fever(s), Denies headache(s) and Denies weakness ENT Denies dizziness and Denies headache(s) Card Denies dyspnea Resp Denies cough, Denies dyspnea, Denies wheezing and Denies other (shortness of breath) Musc Denies numbness and Denies tingling Neuro Denies dizziness, Denies headache(s), Denies numbness, Denies tingling and Denies weakness Psych Denies anxiety and Denies depression Endo Denies fatigue Aller/Immun Denies wheezing Physical exam (Primary Care) Vital Signs: Last Vital Signs Temp 97.9 F 06/25/25 11:19 Pulse 106 H 06/25/25 11:19 Resp 15 06/25/25 11:19 BP 112/68 06/25/25 11:19 Pulse Ox 98 06/25/25 11:19 Oxygen Delivery Method Room Air 06/25/25 11:19 BMI result Body Mass Index 53.6 Tobacco/Smoking Status: Tobacco use Status Tobacco use date assessed 06/25/25 06/25/25 11:24 Patient Tobacco Use Status Former Tobacco user 06/25/25 11:19 e-Cigarette/Vaping Use Never Used 06/25/25 11:19 Thrive Assessment: Date of Thrive Assessment Date Thrive assessed 11/23/24 06/25/25 11:16 Currently or been in a relationship where the following occur: I choose not to answer Const General: well developed; No acute distress Nutritional Appearance: well nourished Orientation/consciousness: patient oriented x3 HENMT Head: Yes normocephalic and Yes atraumatic Eyes General: appearance normal, both eyes and all related structures Pupils: Equal, round and reactive pupils present EOM: EOMs intact bilaterally Resp Effort & Inspection: normal respiratory effort Neuro General: patient oriented x3 and gait normal Cranial nerves: Yes Equal, round and reactive pupils present Psych Affect: normal affect Coding Level of Care Code Est Pt Level 3 (30687) Diagnoses Cellulitis L03.90 Morbid obesity E66.01 Venous stasis ulcer I83.009; L97.909 Assessment & Plan Assessment & Plan (1) Cellulitis: Code(s): L03.90 - Cellulitis, unspecified Category: Medical Plan: Cellulitis of skin has resolved and infected ulcers are healing and nearly resolved. He has completed cephalexin. Continue elevating legs and changing dressings Call or return to office if any S/S of infection and these were reviewed with patient today. (2) Morbid obesity: Code(s): E66.01 - Morbid (severe) obesity due to excess calories Category: Medical (3) Venous stasis ulcer: Code(s): I83.009 - Varicose veins of unspecified lower extremity with ulcer of unspecified site; L97.909 - Non-pressure chronic ulcer of unspecified part of unspecified lower leg with unspecified severity Category: Medical Plan Morbidly obese patient with venous stasis changes of skin and mild ulcerations. Elevate legs He is referred to vascular surgery Orders: Referrals Vascular Surgery Referral I83.009 - Varicose veins of unspecified lower extremity with ulcer of unspecified site, I87.2 - Venous insufficiency (chronic) (peripheral), L97.909 - Non-pressure chronic ulcer of unspecified part of unspecified lower leg with unspecified severity
[2025-06-25 11:19] VITALS: BP 112/68; PULSE 106; RESP 15; TEMP 36.6; O2SAT 98; BMI 53.6
--- OUTSIDE RECORDS SUMMARY | 2025-06-25 12:45 | XMS_ITS | Continuity of Care Document ---
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 05/12/2025 Freestyle Vikas 3 Plus/Sensor/Glucos e Monitoring SystemMisc apply one sensor to skin every 14 days dx: e10.21 3units Corky Yan M.D. 05/12/2025 B-D Mirta 2ND Gen Pen NDL [id number] Use as Directed Twice Daily 300units Corky Yan M.D. 04/06/2025 Freestyle [place] LiteW/Device Kit as directed dx: e11.9 1units Corky Yan M.D. 07/31/2023 Lantus [id number]/ML Solution Pen-Inject Inject 23 Units Subcutaneously In The Morning DX: E11.9 15ml Corky Yan M.D. 12/13/2022 Freestyle Lite TestStrips use 1 test strip four times a day check glucose dx: e11.9 300units E11.9 Corky Yan M.D. Aghtenath67md Tablets 1 by mouth every day 90tabs Paresh Trivedi MD Metformin [id number] Tablets 1 tab by mouth twice a day 180tabs Corky Yan M.D. BD Pen Needle/Mirta 2ND Gen/32G X 5/32 32G X 4 mm Misc Use as Directed Twice Daily Dx: E11.9 300units E11.9 Corky Yan M.D. Spiriva Respimat2.5mcg/Act Aerosol Inhale 2 Puffs By Mouth Daily Louis Bond Hqriezwbex9vl Tablets 1 by mouth every day Unknown 000 Advair Nhanrj641-11yzc/Ac t Aerosol Inhale 1 puff By Mouth Twice Daily Louis Bond Docusate [id number] Capsules Take 2 Capsules By Mouth AT Bedtime Casandra Contreras PA History Medications Mounjaro2.5mg/0.5ML Solution Auto-Inject inject 0.5 milliliters weekly 2ml Corky Yan M.D. 07/24/2024 - 05/12/2025 Vital Signs Date Vital Result [...] Comment: TNP Urinalysis, Complete 07/02/2024 [facility] [place] 1.021 1.005-1.030 pH 6.0 5.0-7.5 Urine-Color Yellow [...] D deficiency has been defined by the [place] of [employer] and an Endocrine Society practice guideline as a level of serum 25-OH vitamin D less than 20 ng/mL (1,2). The Endocrine Society went on to further define vitamin D insufficiency as a level between 21 and 29 ng/mL (2). 1. IOM ([place] [employer]). 2010. Dietary reference intakes for [...]
== END 2025-06-25 12:32 | disposition home or self-care (01) ==
LOC: HO.HMCFM 10:54
PROVIDERS: PCP Family Medicine; Visit Provider Family Medicine
DX: L03.90 Cellulitis, unspecified (principal); E66.01 Morbid (severe) obesity due to excess calories; Z68.43 Body mass index [BMI] 50.0-59.9, adult; L97.929 Non-pressure chronic ulcer of unspecified part of left lower leg with unspecified severity; I83.009 Varicose veins of unspecified lower extremity with ulcer of unspecified site

== ENCOUNTER → 2025-06-25 10:54 | Outpatient (BNVA) | payer OTHER, SELFPAY | PROVIDERS: PCP Family Medicine; Visit Provider Family Medicine | DX: L03.116 Cellulitis of left lower limb (principal); I83.028 Varicose veins of left lower extremity with ulcer other part of lower leg; L97.829 Non-pressure chronic ulcer of other part of left lower leg with unspecified severity; E66.01 Morbid (severe) obesity due to excess calories; Z68.43 Body mass index [BMI] 50.0-59.9, adult | CPT/HCPCS: 99212 ==

== ENCOUNTER 2025-07-20 09:19 | Outpatient (REF) | payer OTHER, SELFPAY ==
--- NOTE | ~2025-07-20 | XR_ITS ---
EXAMINATION: XR ABDOMEN KUB CLINICAL INDICATION: R10.A1 - Flank pain, right side COMPARISON: None available. TECHNIQUE: 4 AP views of the abdomen. FINDINGS: Nonobstructive bowel gas pattern. 1.5 cm calcification the right upper quadrant, nonspecific, possible gallstone. No definite renal ureteral calculus seen. Bowel gas and stool limiting evaluation. No gross pneumoperitoneum. Severe left hip arthritis. Chronic dysmorphic appearance of the proximal left femur and the left ilium, similar to the prior radiograph of 01/23/2021. XR/XR KUB IMPRESSION: 1. No definite renal or ureteral calculi seen. 2. 1.5 cm calcification right upper quadrant, nonspecific, possible gallstone. 3. Severe left hip arthritis. Electronically signed by: Sudhakar Covington MD 07/20/2025 04:10 PM [facility]
--- NOTE | ~2025-07-20 | XR_ITS ---
EXAMINATION: XR RIBS, RIGHT CLINICAL INFORMATION: R10.A1 - Flank pain, right side COMPARISON: None available. TECHNIQUE: PA view chest. Oblique views right hemithorax.. FINDINGS: No hyperinflation. No consolidation, pleural effusion or pneumothorax. Cardiac mediastinal silhouette size is normal. Multilevel thoracolumbar spondylosis. Small, 6 mm metallic screws in the right midline of the upper thoracic spine. No acute cortical disruption in the ribs of the right hemithorax. 5 mm calcification, right upper quadrant abdomen. . Degenerative changes in the right shoulder. XR/XR ribs RT min 3V w CXR1V IMPRESSION: No acute airspace disease. No acute rib fracture, right hemithorax. Multilevel spondylosis. 5 mm calcification right upper quadrant abdomen, probably related to gallbladder versus kidney. Electronically signed by: Pernell Banegas MD 07/20/2025 01:10 PM [facility]
--- NOTE | ~2025-07-20 | XR_ITS ---
EXAMINATION: XR LUMBOSACRAL SPINE CLINICAL INFORMATION: R10.A1 - Flank pain, right side COMPARISON: None available. TECHNIQUE: Three views of the lumbosacral spine. FINDINGS: 5 lumbar type vertebral bodies. Vertebral body heights are maintained. No evidence of acute fracture or spondylolisthesis. Multilevel disc degenerative changes in the visualized lower thoracic and lumbar spine spine. More prominent findings include moderate disc degeneration in the visualized lower thoracic spine; multilevel mild disc degeneration in the lumbar spine. Multilevel facet degeneration. No suspicious bony lesions. No abnormal soft tissue calcifications. XR/XR lumbar spine 2-3V IMPRESSION: 1. No evidence of acute osseous abnormality. 2. Multilevel thoracolumbar spondylosis.. Electronically signed by: Sudhakar Covington MD 07/20/2025 12:49 PM [facility]
[2025-07-20 12:54] LABS: Appearance Urine Clear; Glucose Urine UA Negative (Negative); PH 5.5 (5.0-9.0); Specific Gravity - Urine 1.015 (1.005-1.025)
[2025-07-20 13:10] LABS: Alanine Aminotransferase 23 U/L (0-40); Albumin Level 4.3 g/dL (3.5-5.0); Alkaline Phosphatase 55 U/L (39-117); Anion Gap 12 (12-20); Aspartate Amino Transferase 25 U/L (5-37); Blood Urea Nitrogen 18 mg/dL (9-16); Calcium 9.5 mg/dL (8.4-10.2); Carbon Dioxide 29 mmol/L (22-29); Chloride 101 mmol/L (96-108); Estimated Glomerular Filt Rate > 60; Lipase 28 U/L (8-78); Potassium 4.0 mmol/L (3.3-5.1); Sodium 138 mmol/L (135-145); Total Protein 7.2 g/dL (6.5-8.0)
== END 2025-07-20 09:20 | disposition home or self-care (01) ==
LOC: HO.XRAY 09:19
PROVIDERS: PCP Family Medicine; Visit Provider Family Medicine
DX: Z00.00 Encounter for general adult medical examination without abnormal findings (principal); I10 Essential (primary) hypertension; R10.9 Unspecified abdominal pain; R10.A1 Flank pain, right side; E11.9 Type 2 diabetes mellitus without complications; Z79.4 Long term (current) use of insulin; L03.90 Cellulitis, unspecified
CPT/HCPCS: 36415; 71101; 72100; 74018; 80053; 81003; 83036; 83690; 99212

== ENCOUNTER 2025-07-20 09:19 | Outpatient (AMB) | payer OTHER, SELFPAY ==
--- NOTE | 2025-07-20 09:35 | A.OFFPC_ITS ---
Vital Signs 07/20/25 09:43 Height 5 ft 3 in Weight 299 lb 4 oz BMI 53.0 BP 102/62 Blood Pressure Location Rt brachial Position Sitting Respiration 15 Pulse 94 Pulse Source Pulse Oximeter Temp 97.8 F Temp Source Temporal Artery Scan Pulse Oximetry (%) 97 Oxygen Delivery Method Room Air Intake Visit Reasons: f/u diabetes, HTN Intake Note: Omar presents in the office today for diabetes and hypertension. Patient is having issues with his gallbladder. Patient need a refill of his Lisinopril. Allergies Iodinated Contrast Media Allergy (Severe, Verified 07/20/25 09:42) Blister Hqorlko-BFF-PhR Reductase Inhibitor (Krxtueb-Svj-Wqc Reductase Inhibitor) Allergy (Verified 07/20/25 09:42) Swollen sulfamethoxazole (From Bactrim) Allergy (Verified 07/20/25 09:42) Swollen trimethoprim (From Bactrim) Allergy (Verified 07/20/25 09:42) Swollen oxycodone Adverse Reaction (Verified 07/20/25 09:42) does not tolerate Medication List - Last Reconciled 07/20/25 by Paresh Trivedi MD Advair Diskus 500-50 mcg/dose (fluticasone propion-salmeterol) 1 ea PO BID 30 days NS albuterol sulfate 90 mcg/actuation 2 puffs inhalation Q4-6H PRN 30 days albuterol sulfate 2.5 mg (3 mL) inhalation Q4H PRN betamethasone dipropionate 0.05% appl topical blood sugar diagnostic (FreeStyle Lite Strips) As directed four times a day docusate sodium 200 mg (2 x 100 mg) PO BEDTIME ezetimibe 10 mg PO DAILY 90 days fluticasone propionate 50 mcg/actuation 1 spray intranasal BID 30 days hydrocortisone 2.5% 1 appl [place] BEDTIME PRN insulin glargine (Lantus Solostar U-100 Insulin) 23 units subcut QAM insulin syringe-needle U-100 As directed lactulose 10 grams (15 mL) PO DAILY PRN lancets (FreeStyle Lancets) As directed four time a day lisinopril 5 mg PO DAILY 90 days metformin 1,000 mg PO BID miscellaneous medical supply diabetic shoes miscellaneous medical supply Donut Cushion. Daily As directed, 999 days miscellaneous medical supply Lightweight Motorized Electric Scooter. Daily As directed, 999 days. mupirocin 2% (Centany) 1 appl topical BID 7 days naproxen sodium (Aleve) 220 mg PO BID PRN olopatadine 0.7% 1 drp ophthalmic (eye) DAILY PRN 30 days pen needle, diabetic (BD Mirta 2nd Gen Pen Needle) As directed twice a day polyethylene glycol 3350 (Gavilax) 17 grams PO DAILY sildenafil orally once; administer 30 minutes to 4 hours before activity tiotropium bromide 2.5 mcg/actuation (Spiriva Respimat) 2 puffs PO DAILY tirzepatide 7.5 mg (0.5 mL) subcut QWEEK 28 days ustekinumab (Stelara) 90 mg subcut Q12W Tobacco use date assessed: 07/20/25 Dental Screening Dental Screen Date: 07/20/25 Did you have a dental visit in the last 12 months?: Yes Did you have a dental problem in the last 6 months where you did not have access to dental care?: No Was dental information given to patient?: Patient has dentist HPI f/u diabetes, HTN HPI Details 60 y/o male presents to f/u diabetes, HT N. Last A1c in April 6.9%. A1c today 07/20/25 6.4%. Blood pressure today 102/62, 94p. Complaints of abdominal/ gallbladder pain. Also complaints of R flank, low back pain. Pain does not appear to be colicky or associated with bowel movements or eating. Not associated with urination No blood in urine PFSH Medical History (Updated 07/20/25 @ 10:21 by Paresh Trivedi MD) Essential hypertension Hyperlipidemia Type 2 diabetes mellitus with hyperglycemia, with long-term current use of insulin Asthma-COPD overlap syndrome COPD (chronic obstructive pulmonary disease) GEORGE (obstructive sleep apnea) Environmental allergies Morbid obesity Chronic pain Psoriasis Surgical History History of repair of hiatal hernia Family History Father Diabetes Social History (Updated 07/20/25 @ 09:43 by Tasha Pantoja CMA) Household Members: Spouse Housing: Apartment Alcohol intake: never Patient Tobacco Use Status: Former Tobacco user e-Cigarette/Vaping Use: Never Used Second Hand Smoke Exposure: No service: No Current occupational status: disabled Current occupational exposures/hazards: No Cognitive needs: No Hearing needs: No Vision needs: No Questionnaire Thrive Questionnaire Date Thrive assessed: 11/23/24 I am a: Patient What is your living situation today?: I choose not to answer this question Within the past 12 months, did the food you bought not last and you didn't have the money to get more?: I choose not to answer this question Within the past 12 months, did you worry whether your food would run out before you got money to buy more?: I choose not to answer this question Do you have trouble paying for medicines?: I choose not to answer this question Do you have trouble getting transportation to medical appointments?: I choose not to answer this question Do you have trouble paying your heating and electricity bill?: I choose not to answer this question Do you have trouble taking care of your child, family member or friend?: I choose not to answer this question Do you have trouble with day-to-day activities such as bathing, preparing meals, shopping, managing finances, etc.?: I choose not to answer this question Are you currently unemployed and looking for a job?: I choose not to answer this question Are you interested in more education?: I choose not to answer this question Please select the resources that you would like help with: None Currently or been in a relationship where the following occur: I choose not to answer THRIVE Score: 0 INES-7 AMB Questionnaire INES-7 Date INES - 7 assessed: 01/07/25 Source: Developed by Drs. Sharan Restrepo, Yasmine Pineda, Romero Stark and colleagues, with an educational jeannette from [employer]. Review of Systems Const Denies chills, Denies fatigue, Denies fever(s), Denies headache(s) and Denies weakness ENT Denies dizziness and Denies headache(s) Card Denies dyspnea Resp Denies cough, Denies dyspnea, Denies wheezing and Denies other (shortness of breath) GI Reports abdominal pain Musc Denies numbness and Denies tingling Neuro Denies dizziness, Denies headache(s), Denies numbness, Denies tingling and Denies weakness Psych Denies anxiety and Denies depression Endo Denies fatigue Aller/Immun Denies wheezing Physical exam (Primary Care) Vital Signs: Last Vital Signs Temp 97.8 F 07/20/25 09:43 Pulse 94 07/20/25 09:43 Resp 15 07/20/25 09:43 BP 102/62 07/20/25 09:43 Pulse Ox 97 07/20/25 09:43 Oxygen Delivery Method Room Air 07/20/25 09:43 BMI result Body Mass Index 53.0 Tobacco/Smoking Status: Tobacco use Status Tobacco use date assessed 07/20/25 07/20/25 09:48 Patient Tobacco Use Status Former Tobacco user 07/20/25 09:43 e-Cigarette/Vaping Use Never Used 07/20/25 09:43 Thrive Assessment: Date of Thrive Assessment Date Thrive assessed 11/23/24 07/20/25 09:37 Currently or been in a relationship where the following occur: I choose not to answer Const General: well developed; No acute distress Nutritional Appearance: well nourished Orientation/consciousness: patient oriented x3 HENMT Head: Yes normocephalic and Yes atraumatic Eyes General: appearance normal, both eyes and all related structures Pupils: Equal, round and reactive pupils present EOM: EOMs intact bilaterally Resp Effort & Inspection: normal respiratory effort Neuro General: patient oriented x3 and gait normal Cranial nerves: Yes Equal, round and reactive pupils present Psych Affect: normal affect Results AMB Hemoglobin A1c AMB Hemoglobin A1c 6.4 % Last Edit by Tasha Pantoja CMA on 07/20/25 09:53 Results Reviewed Results Reviewed: Laboratory Last Values Hgb A1c (Clinic) 6.4 % (4.0-6.0) H 07/20/25 09:51 Coding Level of Care Code Est Pt Level 5 (61192) Diagnoses Diabetes mellitus type 2, insulin dependent E11.9; Z79.4 Essential hypertension I10 Cellulitis L03.90 Abdominal pain R10.9 Right flank pain R10.A1 Assessment & Plan Assessment & Plan (1) Diabetes mellitus type 2, insulin dependent: Code(s): E11.9 - Type 2 diabetes mellitus without complications; 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 Good control. Goal is less than 7.0% Continue tirzepatide and Lantus Continue metformin He continues to lose weight on tirzepatide (2) Essential hypertension: Code(s): I10 - Essential (primary) hypertension Category: Medical Plan: Blood pressure is controlled. Goal is less 140/90 He is only on a low dose of lisinopril Continue current medication (3) Cellulitis: Code(s): L03.90 - Cellulitis, unspecified Category: Medical Plan: Essentially resolved Continue to elevate legs (4) Abdominal pain: Code(s): R10.9 - Unspecified abdominal pain Category: Medical (5) Right flank pain: Code(s): R10.A1 - Flank pain, right side Category: Medical Plan Patient has complaints of right flank and right low back pain. Pain does not appear to be colicky or associated with bowel movements or eating. Not associated with urination No blood in urine Patient says pain is mostly constant though it improves when he lies down. Also improve by hot water Pain was slightly modifiable by deep palpation today. Most likely musculoskeletal He will continue Aleve twice a day Checking lab work as well as x-rays of lumbar spine and posterior ribs on the right. Will also get a KUB We will follow-up in 7-10 days. Patient also has concerns that this may be related to his gallbladder. Pain is not associated with eating or wave-like/colicky. Checking lab work Will evaluate further if current workup is unrevealing. Orders: Orders XR lumbar spine 2-3V Today R10.A1 - Flank pain, right side UA CC w/rflx Micro + Cult Today R10.A1 - Flank pain, right side, Z00.00 - Encounter for general adult medical examination without abnormal findings AMB Hemoglobin A1c Today E11.65 - Type 2 diabetes mellitus with hyperglycemia, E11.9 - Type 2 diabetes mellitus without complications, Z79.4 - longterm (current) use of insulin Comprehensive Met. Panel Today R10.9 - Unspecified abdominal pain Lipase Today R10.9 - Unspecified abdominal pain XR KUB Today R10.9 - Unspecified abdominal pain, R10.A1 - Flank pain, right side Medications: Refilled lisinopril 5 mg PO DAILY 90 tabs 1RF 90 days
[2025-07-20 09:43] VITALS: BP 102/62; PULSE 94; RESP 15; TEMP 36.6; O2SAT 97; BMI 53.0
== END 2025-07-20 10:21 | disposition home or self-care (01) ==
LOC: HO.HMCFM 09:20
PROVIDERS: PCP Family Medicine; Visit Provider Family Medicine
DX: E11.65 Type 2 diabetes mellitus with hyperglycemia (principal); Z79.4 Long term (current) use of insulin; E11.9 Type 2 diabetes mellitus without complications

== ENCOUNTER → 2025-07-20 11:18 | Outpatient (BNV) | payer OTHER, SELFPAY | PROVIDERS: PCP Family Medicine; Visit Provider Radiology Diagnostic Ultrasound | DX: J94.2 Hemothorax (principal); M47.814 Spondylosis without myelopathy or radiculopathy, thoracic region; M47.895 Other spondylosis, thoracolumbar region; R10.A1 Flank pain, right side; M16.12 Unilateral primary osteoarthritis, left hip; R93.5 Abnormal findings on diagnostic imaging of other abdominal regions, including retroperitoneum | CPT/HCPCS: 71101; 72100; 74018 ==

== ENCOUNTER 2025-08-04 13:06 | Outpatient (AMB) | payer OTHER, SELFPAY ==
--- NOTE | 2025-08-04 13:12 | A.OFFPC_ITS ---
Vital Signs 08/04/25 13:17 Height 5 ft 3 in Weight 302 lb BMI 53.5 BP 111/53 L Blood Pressure Location Rt brachial Position Sitting Respiration 12 Pulse 100 Pulse Source Pulse Oximeter Temp 98.4 F Temp Source Temporal Artery Scan Pulse Oximetry (%) 96 Oxygen Delivery Method Simple Mask Intake Visit Reasons: f/u abd. pain Intake Note: Follow up on abd px. Patient needs refill on test strips and also patient is requesting flu shot. Color Control Supervisor Required: No Allergies Iodinated Contrast Media Allergy (Severe, Verified 08/04/25 13:12) Blister Dgqaofo-RJD-IfG Reductase Inhibitor (Spaovjw-Wtx-Zoi Reductase Inhibitor) Allergy (Verified 08/04/25 13:12) Swollen sulfamethoxazole (From Bactrim) Allergy (Verified 08/04/25 13:12) Swollen trimethoprim (From Bactrim) Allergy (Verified 08/04/25 13:12) Swollen oxycodone Adverse Reaction (Verified 08/04/25 13:12) does not tolerate Tobacco use date assessed: 08/04/25 Dental Screening Dental Screen Date: 08/04/25 Did you have a dental visit in the last 12 months?: Yes Did you have a dental problem in the last 6 months where you did not have access to dental care?: No Was dental information given to patient?: Patient has dentist HPI f/u abd. pain HPI Details 60 y/o male presents to f/u abd. pain. Pt reports ongoing abd. discomfort. He describes he feels he has a lot of gas. KUB xray 07/20/25 showed: IMPRESSION: 1. No definite renal or ureteral calcul i seen. 2. 1.5 cm calcification right upper giuliano drant, nonspecific, possible gallstone. 3. Severe left hip arthritis. Pt requests a flu shot today. [facility] Medical History (Updated 07/20/25 @ 10:21 by Paresh Trivedi MD) Essential hypertension Hyperlipidemia Type 2 diabetes mellitus with hyperglycemia, with long-term current use of insulin Asthma-COPD overlap syndrome COPD (chronic obstructive pulmonary disease) GEORGE (obstructive sleep apnea) Environmental allergies Morbid obesity Chronic pain Psoriasis Surgical History History of repair of hiatal hernia Family History Father Diabetes Social History (Updated 07/20/25 @ 09:43 by Tasha Pantoja [facility]) Household Members: Spouse Housing: Apartment Alcohol intake: never Patient Tobacco Use Status: Former Tobacco user e-Cigarette/Vaping Use: Never Used Second Hand Smoke Exposure: No service: No Current occupational status: disabled Current occupational exposures/hazards: No Cognitive needs: No Hearing needs: No Vision needs: No Questionnaire PHQ-9 Over the last 2 weeks, how often have you been bothered by any of the following problems? 1. Little interest or pleasure in doing things: not at all 2. Feeling down, depressed, or hopeless: not at all 3. Trouble falling or staying asleep, or sleeping too much: not at all 4. Feeling tired or having little energy: not at all 5. Poor appetite or overeating: not at all 6. Feeling bad about yourself - or that you are a failure or have let yourself or your family down: not at all 7. Trouble concentrating on things, such as reading the newspaper or watching television: not at all 8. Moving or speaking so slowly that other people could have noticed. Or the opposite - being so fidgety or restless that you have been moving around a lot more than usual: not at all 9. Thoughts that you would be better off or of hurting yourself in some way: not at all Total score: 0 Depression Screening Interpretation: Negative Depression Screening Done: Yes 88230 - PHQ-9 Billing: Yes Source: Developed by Drs. Sharan Restrepo, Yasmine Pineda, Romero Stark and colleagues, with an educational jeannette from [employer]. Thrive Questionnaire Date Thrive assessed: 08/04/25 I am a: Patient What is your living situation today?: I choose not to answer this question Within the past 12 months, did the food you bought not last and you didn't have the money to get more?: I choose not to answer this question Within the past 12 months, did you worry whether your food would run out before you got money to buy more?: I choose not to answer this question Do you have trouble paying for medicines?: I choose not to answer this question Do you have trouble getting transportation to medical appointments?: I choose not to answer this question Do you have trouble paying your heating and electricity bill?: I choose not to answer this question Do you have trouble taking care of your child, family member or friend?: I choose not to answer this question Do you have trouble with day-to-day activities such as bathing, preparing meals, shopping, managing finances, etc.?: I choose not to answer this question Are you currently unemployed and looking for a job?: I choose not to answer this question Are you interested in more education?: I choose not to answer this question Please select the resources that you would like help with: None Currently or been in a relationship where the following occur: I choose not to answer THRIVE Score: 0 INES-7 AMB Questionnaire IENS-7 Date INES - 7 assessed: 08/04/25 Feeling nervous, anxious, or on edge: 0 = Not at all Not being able to stop or control worryin = Not at all Worrying too much about different things: 0 = Not at all Trouble relaxin = Not at all Being so restless that it is hard to sit still: 0 = Not at all Becoming easily annoyed or irritable: 0 = Not at all Feeling afraid as if something awful might happen: 0 = Not at all Total INES-7 score (0-4 normal; 5-9 mild; 10-14 moderate; 15-21 severe): 0 Source: Developed by Drs. Sharan Restrepo, Yasmine Pineda, Romero Stark and colleagues, with an educational jeannette from [employer]. INES-7 Assessment Billing INES-7 Assessment Tool: INES-7 Assessment 05639 Review of Systems Const Denies chills, Denies fatigue, Denies fever(s), Denies headache(s) and Denies weakness ENT Denies dizziness and Denies headache(s) Card Denies dyspnea Resp Denies cough, Denies dyspnea, Denies wheezing and Denies other (shortness of breath) GI Reports abdominal pain Musc Denies numbness and Denies tingling Neuro Denies dizziness, Denies headache(s), Denies numbness, Denies tingling and Denies weakness Psych Denies anxiety and Denies depression Endo Denies fatigue Aller/Immun Denies wheezing Physical exam (Primary Care) Vital Signs: Last Vital Signs Temp 98.4 F 08/04/25 13:17 Pulse 100 08/04/25 13:17 Resp 12 08/04/25 13:17 BP 111/53 L 08/04/25 13:17 Pulse Ox 96 08/04/25 13:17 Oxygen Delivery Method Simple Mask 08/04/25 13:17 BMI result Body Mass Index 53.5 Tobacco/Smoking Status: Tobacco use Status Tobacco use date assessed 08/04/25 08/04/25 13:15 Patient Tobacco Use Status Former Tobacco user 08/04/25 13:15 e-Cigarette/Vaping Use Never Used 08/04/25 13:15 PHQ-9: PHQ-9 Score PHQ-9: Total score 0 08/04/25 13:15 Depression Screening Interpretation: Negative Thrive Assessment: Date of Thrive Assessment Date Thrive assessed 08/04/25 08/04/25 13:15 Currently or been in a relationship where the following occur: I choose not to answer Const General: well developed; No acute distress Nutritional Appearance: well nourished and obese morbidly obese Orientation/consciousness: patient oriented x3 HENMT Head: Yes normocephalic and Yes atraumatic Eyes General: appearance normal, both eyes and all related structures Pupils: Equal, round and reactive pupils present EOM: EOMs intact bilaterally Resp Effort & Inspection: normal respiratory effort Auscultation: clear to auscultation bilaterally Cardio Rate: regular rate Rhythm: regular rhythm Heart sounds: S1 normal heart sound present, S2 normal heart sound present, no gallops, no murmurs and no rubs Neuro General: patient oriented x3 and gait normal Cranial nerves: Yes Equal, round and reactive pupils present Psych Affect: normal affect Coding Level of Care Code Est Pt Level 4 (09034) Diagnoses Abdominal pain R10.9 Gall stone K80.20 Immunization counseling Z71.85 Diabetes mellitus type 2, insulin dependent E11.9; Z79.4 Additional Codes INES-7 Assessment Billing - INES-7 Assessment Tool: INES-7 Assessment 80491 ([id number]) PHQ-9 - 54337 - PHQ-9 Billing: Yes ([id number]) Assessment & Plan Assessment & Plan (1) Abdominal pain: Code(s): R10.9 - Unspecified abdominal pain Category: Medical Plan: Patient had right upper quadrant and flank pain which did not appear to be a ssociated with eating However, shortly thereafter patient said he had significant flatulence and the decompression resolved his pain. His lab work was unremarkable and KUB did not show any renal stones though did suggest gallstone. Given that discomfort resolved with passing gas however, the gallstone is likely incidental. Will give him a script for simethicone. Hydrate well. He will let know if anything changes (2) Gall stone: Code(s): K80.20 - Calculus of gallbladder without cholecystitis without obstruction Category: Medical Plan: Likely incidental gallstone He will let know if he gets further right upper quadrant discomfort, collicky and associated with eating (3) Immunization counseling: Code(s): Z71.85 - Encounter for immunization safety counseling Category: Medical Plan: Due for flu shot-ordered. He will get this today (4) Diabetes mellitus type 2, insulin dependent: Code(s): E11.9 - Type 2 diabetes mellitus without complications; Z79.4 - manager long term care (current) use of insulin Category: Medical Plan: Had increased Mounjaro at his last visit. Patient is noticing more frequent blood sugars down to the 70s He can ease up on his Lantus. Currently taking about 18 units daily. He will change this to 16 units daily Orders: Orders Influenza [id number] Immunization Today Z23 - Encounter for immunization Medications: New Fluarix [id number] (PF) (flu vac ts (6mos up)-PF) 0.5 mL IM ONCE 0.5 mL 0RF NS Z23 - Encounter for immunization simethicone 80 mg PO TID PRN 90 tabs 3RF Gas/abdominal distention 30 days
[2025-08-04 13:17] VITALS: BP 111/53; PULSE 100; RESP 12; TEMP 36.9; O2SAT 96; BMI 53.5
--- OUTSIDE RECORDS SUMMARY | 2025-08-04 15:35 | XMS_ITS | Continuity of Care Document ---
Author Organization [facility] Address [address] [place] [address] Phone [phone] Care Team Providers Care Rn Intake Name Role Phone Parseh Trivedi MD Care Team Information Hand Sewer [phone] Problems Active Problems Provider Date Essential hypertension [...] SIG Qnty Indications Order ing Provider Date Jefupkic1pv/0.5ML Solution Auto-Inject inject 0.5 milliliters weekly Corky Yan M.D. 05/12/2025 Freestyle Vikas 3 Plus/Sensor/Glucos e Monitoring SystemMisc apply one sensor to skin every 14 days dx: e10.21 3units Corky Yan M.D. 05/12/2025 B-D Mirta 2ND Gen Pen NDL [id number] Use as Directed Twice Daily 300units Corky Yan M.D. 04/06/2025 Freestyle [place] LiteW/Device Kit as directed dx: e11.9 1units Corky Yan M.D. 07/31/2023 Lantus Mvtglslj598Xufa/ML Solution Pen-Inject Inject 23 Units Subcutaneously In The Morning DX: E11.9 15ml Corky Yan M.D. 12/13/2022 Freestyle Lite TestStrips use 1 test strip four times a day check glucose dx: e11.9 300units E11.9 Corky Yan M.D. Irxdskdak32ln Tablets 1 by mouth every day 90tabs Paresh Trivedi MD Metformin [id number] Tablets 1 tab by mouth twice a day 180tabs Corky Yan M.D. BD Pen Needle/Mirta 2ND Gen/32G X 5/32 32G X 4 mm Misc Use as Directed Twice Daily Dx: E11.9 300units E11.9 Corky Yan M.D. Spiriva Respimat2.5mcg/Act Aerosol Inhale 2 Puffs By Mouth Daily Louis Bond Jgziugyzpf7jy Tablets 1 by mouth every day Unknown 000 Advair Swpsdt423-59yjz/Ac t Aerosol Inhale 1 puff By Mouth Twice Daily Louis Bond Docusate [id number] Capsules Take 2 Capsules By Mouth AT Bedtime Casandra Contreras PA Vital Signs Date Vital Result Comment 05/12/2025 [...] Comment: TNP Urinalysis, Complete 07/02/2024 [facility] Specific [place] 1.021 1.005-1.030 pH 6.0 5.0-7.5 Urine-Color Yellow [...] Triny ECLIA methodol ogy. According to the [place] [employer], Serum PSA should decrease and [...] D deficiency has been defined by the [place] [employer] and an Endocrine Society practice guideline as a level of serum 25-OH vitamin D less than 20 ng/mL (1,2). The Endocrine Society went on to further define vitamin D insufficiency as a level between 21 and 29 ng/mL (2). 1. IOM ([place] [employer]). 2010. Dietary reference intakes for calcium and D. [place]: The National Academies Press. 2. Monica MF, Glenna SOLOMON, Thomas GALLARDO, et al. Evaluation, treatment, and prevention of vitamin D deficiency: an Endocrine Society clinical practice guideline. JCEM. 2011 Mar; 96(7):1911-30. Medical Devices Description No Information Available Encounters Type Date Location Provider Dx Diagnosis Office Visit 05/12/2025 9:30a Main Office Corky Yan M.D. E11.9 Type 2 diabetes mellitus without complications E66.9 Obesity, unspecified Assessments Date Code Description Provider 05/12/2025 E11.9 Type 2 diabetes mellitus without complications Corky Yan M.D. 05/12/2025 E66.9 Obesity Corky odom M.D. Plan of Treatment Future Appointment(s):* 11/29/2025 10:45 am - Corky Yan M.D. at Main Office 01/18/2025 - Corky Yan M.D.* E11.9 Type 2 diabetes mellitus without complications Functional Status Description No Information Available Mental Status Description No Information Available Referrals Description No Information Available
== END 2025-08-04 14:11 | disposition home or self-care (01) ==
LOC: HO.HMCFM 13:07
PROVIDERS: PCP Family Medicine; Visit Provider Family Medicine
DX: E11.9 Type 2 diabetes mellitus without complications (principal); Z79.4 Long term (current) use of insulin; R10.9 Unspecified abdominal pain; K80.20 Calculus of gallbladder without cholecystitis without obstruction; Z71.85 Encounter for immunization safety counseling; Z23 Encounter for immunization

== ENCOUNTER → 2025-08-04 13:06 | Outpatient (BNVA) | payer OTHER, SELFPAY | PROVIDERS: PCP Family Medicine; Visit Provider Family Medicine | DX: Z71.85 Encounter for immunization safety counseling (principal); Z23 Encounter for immunization; K80.20 Calculus of gallbladder without cholecystitis without obstruction; R10.9 Unspecified abdominal pain; E11.9 Type 2 diabetes mellitus without complications; Z79.4 Long term (current) use of insulin | CPT/HCPCS: 90471; 90656; 96127; 99212 ==